=== PATIENT | male | born 1960 | race Caucasian/White ===

== ENCOUNTER 2020-04-23 18:45 | Inpatient (IN) | payer MEDICAID, SELFPAY ==
[~2020-04-23] VITALS: Ht 175.3 cm; Wt 83.5 kg
--- NOTE | 2020-04-23 18:48 | NUR ---
BIBA TAKEN TO BED 8
[2020-04-23 18:51] VITALS: BP 143/82
--- NOTE | 2020-04-23 19:10 | NUR ---
DR EVANS AT PT BEDSIDE FOR FURTHER EVALUATION
--- NOTE | 2020-04-23 19:18 | NUR ---
EMT AND LAB AT PT BEDSIDE
--- NOTE | 2020-04-23 19:19 | NUR ---
REPORT GIVEN TO FRACISCO DIAZ. TRANSFER OF CARE AT THIS TIME.
--- NOTE | 2020-04-23 19:19 | NUR ---
REPORT RECEIVED FROM DREW DIAZ FOR CONTINUITY OF CARE
[2020-04-23] MEDS ORDERED: VANCOMYCIN 1,000 MG in DEXTROSE 5% 250 ML IV ONE (19:20)
[2020-04-23] MEDS ORDERED: CEFEPIME 1,000 MG in DEXTROSE 5% 50 ML IV ONE (19:20)
--- NOTE | 2020-04-23 19:20 | NUR ---
ANNIE SWAB COLLECTED AND HANDED TO PERSONALIZED LIVING ASSISTANT
--- NOTE | 2020-04-23 19:20 | NUR ---
59 Y/O MALE C/O SOB. COVID+ 04/02/20; WAS AT HOME O2 FOR COVID. ON ROOM AIR 69%. PT ON NON REBREATHERR 10 L O2 SAT 95%. MEDHX: ESRD MWF, DM2, HTN NKA
--- NOTE | 2020-04-23 19:20 | NUR ---
R UPPER CHEST DIALYSIS CATHETER NOTED.
--- NOTE | 2020-04-23 19:26 | NUR ---
XRAY AT BEDSIDE
[2020-04-23] MEDS ORDERED: CEFEPIME 1,000 MG VIAL ONE (19:30)
[2020-04-23 19:38] LABS: BASOPHILS # (AUTO) 0.1 K/uL (0.00-0.22); BASOPHILS % (AUTO) 0.7 % (0.0-2.0); EOSINOPHILS # (AUTO) 0.3 K/uL (0-0.4); EOSINOPHILS % (AUTO) 3.1 % (0.0-4.0); HEMATOCRIT 24.3 % (36-52); LYMPHOCYTES # (AUTO) 0.9 K/uL (2.0-11.5); LYMPHOCYTES % (AUTO) 9.8 % (20.5-51.1); MEAN CORPUSCULAR HEMOGLOBIN 28 pg (27-31); MEAN CORPUSCULAR HGB CONC 33 g/dL (33-37); MEAN CORPUSCULAR VOLUME 85.2 fL (80-94); MONOCYTES # (AUTO) 0.7 K/uL (0.8-1.0); MONOCYTES % (AUTO) 8.2 % (1.7-9.3); NEUTROPHILS # (AUTO) 7.1 K/uL (1.8-7.7); NEUTROPHILS % (AUTO) 78.2 % (42.2-75.2); PLATELET COUNT (AUTO) 254 K/uL (140-450); RED BLOOD CELL COUNT(AUTO) 2.85 MIL/uL (4.20-6.10)
[2020-04-23 19:49] LABS: ALBUMIN 2.6 g/dL (3.4-5.0); ANION GAP 12.1 (8-16); CARBON DIOXIDE 27.9 mmol/L (21-32); TOTAL BILIRUBIN 0.5 mg/dL (0.0-1.0)
[2020-04-23 19:57] LABS: CREATININE 6.7 mg/dL (0.6-1.3)
[2020-04-23] MEDS ORDERED: VANCOMYCIN 1,000 MG VIAL ONE (20:22)
--- NOTE | 2020-04-23 20:40 | NUR ---
NOVEL SWAB COLLECTED AND SENT TO LAB
[2020-04-23] MEDS ORDERED: AMLO2.5T PO (20:50)
[2020-04-23] MEDS ORDERED: INSU100S22 SUBQ (20:50)
[2020-04-23] MEDS ORDERED: FURO-570 PO (20:50)
[2020-04-23] MEDS ORDERED: SEVE800T6 PO (20:50)
[2020-04-23] MEDS ORDERED: TAMS0.4C97 PO (20:50)
--- NOTE | 2020-04-23 21:30 | NUR ---
Patient will be admitted to care of DR ECHAVARRIA. Admited to TELEMETRY. Will go to room 119 B. Belongings list completed. Report to TAMEKA DIAZ.
[2020-04-23 21:40] VITALS: BP 158/77
--- NOTE | 2020-04-23 21:40 | NUR ---
RECEIVED PATIENT FROM BROACHING MACHINE SET UP OPERATOR. PT IS AAOX4 MALTESE SPEAKING ONLY. C/C HYPOXIA PT HX COVID + ON 04/02 PER PT C/O DE SAT AT HOME IN 60S DESPITE ON HOME O2. DX HYPOXIA COVID ANNIE NEGATIVE PCR PENDING. RESPIRATIONS ARE EQUAL AND UNLABORED ON 15L VIA NRB. LUNG SOUNDS ARE DIMINISHED. SKIN IS INTACT. PT WITH RIGHT 3,4,5 TOE AMPUTATION. PT STATES HAS NOT BEEN AMBULATING PAST DEW WEEKS D/T INCREASE SOB. PT LIVES AT HOME WITH DAUGHTER. ABD IS SOFT. BOWEL SOUNDS ARE ACTIVE X4, LBM TODAY. HX ESRD R UPPER CHEST TUNNEL CATH LAST HD TODAY UNKNOWN OUTPUT. HD ON MWF, IV ON FA 24G. MRSA SWAB OBTAINED. VSS. ORIENTED PT TO ROOM, STAFF AND CALL LIGHT. POC DISCUSSED WITH PT. PT VERBALIZED UNDERSTANDING. CALL LIGHT IS WITHIN REACH.
[2020-04-24] VITALS (20 sets, daily range): BP systolic 103–149; BP diastolic 43–85
[2020-04-24] MEDS ORDERED: ACETAMINOPHEN 325 MG TAB PO PRN ×2 (00:55→10:30)
--- NOTE | 2020-04-24 00:57 | NUR ---
VITAL SIGNS ARE STABLE. ADMINISTERED PRN TYLENOL FOR TEMP 100.4 COOLING MEASURES ARE IN PLACE. ALL NEEDS MET. CALL LIGHT IS WITHIN REACH.
--- NOTE | 2020-04-24 02:30 | NUR ---
ROUNDS MADE. PT IS SLEEPING COMFORTABLY IN BED VISIBLE CHEST RISE AND FALL. CALL LIGHT IS WITHIN REACH.
--- NOTE | 2020-04-24 04:00 | NUR ---
VITAL SIGNS ARE WITHIN NORMAL LIMITS. ALL NEEDS MET. CALL LIGHT IS WITHIN REACH. WILL CONTINUE TO MONITOR.
--- NOTE | 2020-04-24 07:30 | NUR ---
GAVE BEDSIDE REPORT TO DAY RN. PT ENDORSED IN STABLE CONDITION.
--- NOTE | 2020-04-24 07:31 | NUR ---
ENDORSEMENT RECEIVED FROM BLOW UP OPERATOR RN. PT IS STABLE, LAYING RIGHT LATERAL SIDE. SAFETY MEASURES IN PLACE. WILL CONTINUE WITH POC.
--- NOTE | 2020-04-24 09:09 | NUR ---
PATIENT HAS BEEN SCREENED AND CATEGORIZED MODERATE NUTRITION RISK. PATIENT WILL BE SEEN WITHIN 3-5 DAYS OF ADMISSION. 04/26/2020-04/28/[address]
--- NOTE | 2020-04-24 09:20 | NUR ---
SCHEDULED MEDICATION GIVEN PT RESISTANT TO SUBCUTANEOUS MEDICATION . REQUIRED SOME EDUCATION. PT LAYING ON RIGHT LATERAL SIDE, PT EASILY AGITATED STATING HE DOESN'T FEEL WELL. DENIES ANY PAIN AT THIS TIME. DENIES ANY SOB PT ON 10L SPO2 94% AT THIS TIME. PT COUGHING NON-PRODUCTIVE AT THIS TIME. LUNG SOUNDS DIMINISHED ASSESSMENT LIMITED DUE TO PTS AGITATION. "i JUST WANT TO REST" DENIED ISSUES WITH CONSTIPATION. CALL LIGHT WITHIN REACH. ENCOURAGED TO EAT BREAKFAST THAT IS AT BEDSIDE.
--- NOTE | 2020-04-24 10:18 | NUR ---
GEOCHEMICAL MANAGER REPORTED DECREASED IN HR, UPON ASSESSMENT PT NONRESPONSIVE. HR IN TH 40'S AND O2 30-40% MASK WAS OFF HIS FACE. PT WAS GIVEN OXYGEN., NO PULSE PALPATED AT THIS TIME. CODE BLUE WAS IMMEDIATELY INITIATED. CPR INITIATED.
--- NOTE | 2020-04-24 10:18 | NUR ---
JAZMÍN HELM CALLED DR. RITA VAZQUEZ AT BEDSIDE Vasyl WHYTE,ADMINISTRATIVE SERVICES ASSISTANT; Omari GONZALES,ADMINISTRATIVE SERVICES ASSISTANT; Herminia FERNANDO,ADMINISTRATIVE SERVICES ASSISTANT ATTENDING POST PATIENT EVALUATION COMPRESSIONS AND VBM INITIATED
--- NOTE | 2020-04-24 10:21 | NUR ---
BRITTANY VAZQUEZ VENTILATOR MODE AC RATE 20 VT 500ml PEEP 5cmH2O FIO2 100%; ABG [address] ON VENTILATOR; OBTAIN SPUTUM SAMPLE
--- NOTE | 2020-04-24 10:25 | NUR ---
PATIENT SUCCESSFULLY INTUBATED BY DR. RITA VAZQUEZ WITH AN ENDOTRACHEAL TUBE #7.5 SECURED AT 24cm TEETH/GUM LINE WITH ANCHOR FAST PLACEMENT CONFIRMED WITH CO2 DETECTOR COLOR CHANGE YELLOW, AUSCULTATION TO PULMONARY LUNG AMEZQUITA WITH GOOD AERATION AND CHEST RISE, AUSCULTATION TO ABDOMINAL CHEST XRAY TO FOLLOW
--- NOTE | 2020-04-24 10:25 | NUR ---
PT WAS INTUBATED AT THIS TIME AND SON BERNARDO NOTIFIED OF FATHERS CONDITION.
[2020-04-24] MEDS ORDERED: LORazepam 2 MG/ML VIAL IM/IVP PRN (10:30)
[2020-04-24] MEDS ORDERED: DOCUSATE SODIUM 100 MG GELCAP PO PRN (10:30)
[2020-04-24] MEDS ORDERED: MORPHINE SULFATE 2 MG/ML SYR IVP PRN (10:30)
[2020-04-24] MEDS ORDERED: HYDROcodone/APAP 5/325 MG 1 TAB TAB PO PRN (10:30)
[2020-04-24] MEDS ORDERED: NACL 0.9% 1,000 ML IV SCH (10:30)
[2020-04-24] MEDS ORDERED: ONDANSETRON 4 MG/2 ML VIAL IM/IVP PRN (10:30)
[2020-04-24] MEDS ORDERED: ALBUTEROL HFA MDI 90 MCG/ACTUATION 8 GM INH PRN (10:30)
[2020-04-24] MEDS ORDERED: MIDAZOLAM MDV 50 MG in NACL 0.9% 40 ML IV PRN (10:35)
--- NOTE | 2020-04-24 11:08 | NUR ---
PATIENT TRANSFERRED TO ICU-1 PLACED ON SUPPLEMENTAL OXYGEN VIA E-TANK (1900 PSI) TO ENDOTRACHEAL TUBE BMV COMPRESSION EVERY 6 SECONDS SATURATION 92% TOLERATED TRANSFER WELL WITHOUT INCIDENT
--- NOTE | 2020-04-24 11:10 | NUR ---
PT TRANSFERRED TO ICU AT THIS TIME. PT IS INTUBATED ON CARDIAC MONITORING. KAVITA CHANG NOTIFIED OF THE TRANSFER AND UPDATED ON CONDITION.
--- NOTE | 2020-04-24 11:15 | NUR ---
RECEIVED PT. FROM TELE ADM TO ICU 1 PT INTUBATED ETT TO VENT, SETTING AC 20 TV 500 [id number]% PEEP OF 5 O2 SAT 100% PT. HAS SCHUMACHER CATH AND OGT ON.IV FLUID ON RT WRIST .
--- NOTE | 2020-04-24 11:15 | NUR ---
PLACED ON A [employer]o-[employer]ovation[employer] R860 VENTILATOR PLUGGED INTO RED OUTLET WITH SETTINGS ORDERED TOLERATING WELL WITHOUT ADVERSE REACTIONS NOTED GOOD CHEST RISE SPUTUM SAMPLE OBTAINED ENDOTRACHEAL SUCTION FOR LARGE THIN YELLOW WITH BLOOD TINGE SECRETIONS AIRWAY PATENT
[2020-04-24 12:09] LABS: BASOPHILS # (AUTO) 0.1 K/uL (0.00-0.22); BASOPHILS % (AUTO) 0.5 % (0.0-2.0); EOSINOPHILS # (AUTO) 0.1 K/uL (0-0.4); EOSINOPHILS % (AUTO) 0.9 % (0.0-4.0); HEMOGLOBIN 7.8 g/dL (12.0-18.0); LYMPHOCYTES # (AUTO) 0.4 K/uL (2.0-11.5); LYMPHOCYTES % (AUTO) 3.4 % (20.5-51.1); MEAN CORPUSCULAR HEMOGLOBIN 28 pg (27-31); MEAN CORPUSCULAR HGB CONC 33 g/dL (33-37); MONOCYTES # (AUTO) 0.8 K/uL (0.8-1.0); MONOCYTES % (AUTO) 6.9 % (1.7-9.3); NEUTROPHILS # (AUTO) 10.6 K/uL (1.8-7.7); NEUTROPHILS % (AUTO) 88.3 % (42.2-75.2); PLATELET COUNT (AUTO) 223 K/uL (140-450); RED BLOOD CELL COUNT(AUTO) 2.79 MIL/uL (4.20-6.10); RED CELL DISTRIBUTION WIDTH 15.7 % (11.6-13.7)
--- NOTE | 2020-04-24 12:15 | NUR ---
STARTED ON FENTANYL AND VERSED AT MINIMUM DOSE PROTOCOL.
[2020-04-24 12:23] LABS: PROTHROMBIN TIME 10.3 secs (10.8-13.4)
[2020-04-24 12:28] LABS: ALBUMIN 2.2 g/dL (3.4-5.0); ANION GAP 14.3 (8-16); CARBON DIOXIDE 25.4 mmol/L (21-32); POTASSIUM 5.7 mmol/L (3.5-5.1); TOTAL BILIRUBIN 0.7 mg/dL (0.0-1.0)
[2020-04-24 12:29] LABS: CREATININE 7.6 mg/dL (0.6-1.3)
[2020-04-24] MEDS ORDERED: MAG SULF 2000 MG/WATER PREMIX 50 ML IV PRN (12:30)
[2020-04-24] MEDS ORDERED: POTASSIUM CHLORIDE 10 MEQ TABER PO PRN (12:30)
[2020-04-24] MEDS: fentaNYL citrate 1 MG in NACL 0.9% 80 ML IV PRN ×2 (12:35→16:32)
--- NOTE | 2020-04-24 12:43 | NUR ---
COURTESY PAGE TO DR. RITA VAZQUEZ [phone] TO REVIEW ABG SAMPLE RESULTS WITHOUT CRITICAL VALUES RETURN PHONE NUMBER [phone]
--- NOTE | 2020-04-24 12:51 | NUR ---
RETURN CALL FROM DR. RITA VAZQUEZ REVIEWED ABG SAMPLE REPORT; CHEST XRAY IMPRESSION: TUBE PLACEMENT 3.9cm ABOVE PETAR; ADMITTING DX: PNEUMONIA SPUTUM SAMPLE OBTAINED TORBO: HHN THERAPY DUONEB Q4; OXYGEN SATURATION GREATER THAN 94%; ABG AM
[2020-04-24] MEDS ORDERED: AZITHROMYCIN 250 MG in DEXTROSE 5% 250 ML IV SCH (13:00)
[2020-04-24 13:04] LABS: CHOL/HDL RATIO 3.3 (1-4.5); THYROID STIMULATING HORMONE 1.88 uIU/mL (0.34-3.74)
--- NOTE | 2020-04-24 15:30 | NUR ---
CALLED DR ECHAVARRIA IN REGARDS TO PATIENT INCREASED POTASSIUM, AWAITING CALL BACK WITH ORDERS.
[2020-04-24] MEDS: ALBUTEROL SULFATE/IPRATROPIU 3 ML SOL IH SCH ×2 (15:31→20:18)
[2020-04-24] MEDS: MIDAZOLAM MDV 100 MG in NACL 0.9% 80 ML IV SCH (16:53)
[2020-04-24] MEDS ORDERED: SODIUM ZIRCONIUM CYCLOSILICATE 10 GM POWD.PACK PO ONE (17:20)
[2020-04-24] MEDS ORDERED: SODIUM ZIRCONIUM CYCLOSILICATE 10 GM POWD.PACK ONE (18:48)
[2020-04-24] MEDS ORDERED: DOPPLER MC ONE (18:49)
--- NOTE | 2020-04-24 19:30 | NUR ---
ENDORSED TO REVENUE AUDIT CLERK NURSE FOR CONTINUITY OF CARE. PATIENT STABLE AT THIS TIME.
--- NOTE | 2020-04-24 20:00 | NUR ---
PT IS RESTING WELL NO UNDUESIGNS OF DISCOMFORT OBSERVED CARIAC MONITOR ATTACHED. PT IS ON THE VENTILATOR WITH RTT ATTACHED. NASO GASTIC TUBE IN PLACE. NO FEEDING ORDERED. SAME PATENT. SCHUMACHER CATH IS PATENT
--- NOTE | 2020-04-24 20:18 | NUR ---
RESTING WELL GOOD CHEST RISE ENDOTRAC HEAL SUCTION FOR LARGE THIN YELLOW WITH BLOOD TINGE SECRETIONS AIRWAY PATENT
[2020-04-24 23:03] LABS: ANION GAP 16.4 (8-16); CARBON DIOXIDE 24.6 mmol/L (21-32)
[2020-04-24 23:07] LABS: CREATININE 8.1 mg/dL (0.6-1.3)
[2020-04-25] VITALS (29 sets, daily range): BP systolic 94–142; BP diastolic 0–72
[2020-04-25] MEDS ORDERED: MIDAZOLAM MDV 50 MG/10 ML VIAL IV ONE (05:53)
[2020-04-25 06:39] LABS: BASOPHILS # (AUTO) 0.1 K/uL (0.00-0.22); BASOPHILS % (AUTO) 0.8 % (0.0-2.0); EOSINOPHILS # (AUTO) 0.1 K/uL (0-0.4); EOSINOPHILS % (AUTO) 1.9 % (0.0-4.0); HEMATOCRIT 20.8 % (36-52); LYMPHOCYTES # (AUTO) 1.2 K/uL (2.0-11.5); LYMPHOCYTES % (AUTO) 16.4 % (20.5-51.1); MEAN CORPUSCULAR HEMOGLOBIN 28 pg (27-31); MEAN CORPUSCULAR HGB CONC 32 g/dL (33-37); MEAN CORPUSCULAR VOLUME 86.7 fL (80-94); MONOCYTES # (AUTO) 0.7 K/uL (0.8-1.0); NEUTROPHILS # (AUTO) 5.2 K/uL (1.8-7.7); NEUTROPHILS % (AUTO) 71.9 % (42.2-75.2); PLATELET COUNT (AUTO) 202 K/uL (140-450); RED CELL DISTRIBUTION WIDTH 15.7 % (11.6-13.7); WHITE BLOOD COUNT (AUTO) 7.2 K/uL (4.8-10.8)
[2020-04-25 06:43] LABS: ALBUMIN 1.9 g/dL (3.4-5.0); ANION GAP 18.9 (8-16); CARBON DIOXIDE 23.8 mmol/L (21-32); HEMOGLOBIN 6.7 g/dL (12.0-18.0); MAGNESIUM 2.1 mg/dL (1.8-2.4); PHOSPHORUS 6.1 mg/dL (2.5-4.9); TOTAL BILIRUBIN 0.9 mg/dL (0.0-1.0)
[2020-04-25] MEDS: ALBUTEROL SULFATE/IPRATROPIU 3 ML SOL IH SCH ×4 (06:45→23:35)
[2020-04-25] MEDS ORDERED: SODIUM ZIRCONIUM CYCLOSILICATE 10 GM POWD.PACK PO ONE (06:50)
[2020-04-25] MEDS ORDERED: INSULIN REGULAR, HUMAN 100 UNIT/ML VIAL SUBQ ONE (06:50)
[2020-04-25 06:51] LABS: CREATININE 8.4 mg/dL (0.6-1.3); POTASSIUM 6.7 mmol/L (3.5-5.1)
--- NOTE | 2020-04-25 07:30 | NUR ---
RECEIVED REPORT FROM MARINE CHRONOMETER ASSEMBLER NURSE. RASS-3, FLACC 0. ETT TO VENT AC/VC FIO2 90% TV 500 R 20 PEEP 5. RESPIRATIONS ARE EVEN AND UNLABORED. WITH TALON PICC LINE RUNNING FENTANYL AT 1.5 MCG/KG/HR, VERSED 8MG/HR. WITH RIGHT SUBCLAVIAN DIALYSIS CATH INTACT. NGT TO RIGHT NARES INTACT. SCHUMACHER INTACT AND PATENT, DRAINING VIA GRAVITY. ISOLATION PRECAUTION OBSERVED. WILL CONTINUE TO MONITOR
[2020-04-25] MEDS: ZINC SULF 220 MG CAP PO SCH ×2 (09:00→20:53)
--- NOTE | 2020-04-25 09:00 | NUR ---
DUE MORNING MEDS GIVEN VIA GT, TOLERATED WELL. SCHUMACHER CARE, ORAL CARE DONE. REPOSITIONED PT
[2020-04-25] MEDS: VITAMIN D 400 IU TAB PO SCH (09:51)
[2020-04-25] MEDS: TAMSULOSIN 0.4 MG CAP PO SCH (09:52)
[2020-04-25] MEDS: FUROSEMIDE 40 MG TAB PO SCH (09:52)
[2020-04-25] MEDS: amLODIPine 5 MG TAB PO SCH (09:52)
[2020-04-25] MEDS: SEVELAMER CARBONATE 800 MG TAB PO SCH (09:52)
[2020-04-25] MEDS: ASCORBIC ACID 500 MG TAB PO SCH (09:52)
--- NOTE | 2020-04-25 10:30 | NUR ---
PRBC TRANSFUSION STARTED, VERIFIED BY 2 RN PRIOR
--- NOTE | 2020-04-25 11:13 | NUR ---
PT PEAK PRESSURE RISING. SWITCH MODE TO PRVC 20,500,+5,80%. PRESSURE REMAINS STABLE AT 29. SATURATIONS 96%. NO SIGNS OF RESPIRATORY DISTRESS. WILL CONTINUE TO MONITOR.
--- NOTE | 2020-04-25 12:10 | NUR ---
BLOOD TRANSFUSION DONE. NO ADVERSE REACTIONS NOTED. VSS
[2020-04-25] MEDS: fentaNYL citrate - 50mL vial 2.5 MG in NACL 0.9% 200 ML IV PRN (13:30)
--- NOTE | 2020-04-25 13:45 | NUR ---
HEMODIALYSIS DONE. 2L OUTPUT
[2020-04-25] MEDS: MIDAZOLAM MDV 100 MG in NACL 0.9% 80 ML IV SCH (14:00)
[2020-04-25 18:56] LABS: BASOPHILS % (AUTO) 0.1 % (0.0-2.0); EOSINOPHILS % (AUTO) 0.3 % (0.0-4.0); HEMOGLOBIN 8.1 g/dL (12.0-18.0); LYMPHOCYTES # (AUTO) 0.3 K/uL (2.0-11.5); LYMPHOCYTES % (AUTO) 4.7 % (20.5-51.1); MEAN CORPUSCULAR HEMOGLOBIN 28 pg (27-31); MEAN CORPUSCULAR HGB CONC 33 g/dL (33-37); MEAN CORPUSCULAR VOLUME 85.6 fL (80-94); MONOCYTES # (AUTO) 0.2 K/uL (0.8-1.0); MONOCYTES % (AUTO) 2.6 % (1.7-9.3); NEUTROPHILS # (AUTO) 6.3 K/uL (1.8-7.7); NEUTROPHILS % (AUTO) 92.3 % (42.2-75.2); PLATELET COUNT (AUTO) 230 K/uL (140-450); RED BLOOD CELL COUNT(AUTO) 2.92 MIL/uL (4.20-6.10); RED CELL DISTRIBUTION WIDTH 15.5 % (11.6-13.7); WHITE BLOOD COUNT (AUTO) 6.9 K/uL (4.8-10.8)
--- NOTE | 2020-04-25 20:00 | NUR ---
RECEIVED PATIENT IN SUPINE POSITION , ETT TO VENT WITH FIO2 75% RIGHT NG TUBE FEEDING WITH NEPRO AT 10 ML/HR, IV DRIP: FENTANYL1.5 MCG/KG/HR, VERSED 8 MG/HR INFUSING AT TALON MID LINE , SITE IS CLEAR, RIGHT SUBCLAVINE TUNNEL CATH IN PLACE ACCESS FOR HEMODIALYSIS , SCHUMACHER CATHETER IN PLACE AND DRAINING TO GRAVITY, SINUS RHYTHM ON THE MONITOR. WILL CONTINUE TO MONITOR.
[2020-04-25] MEDS: INSULIN LANTUS 100 UNITS/ML 10 ML VIAL SUBQ SCH (21:35)
[2020-04-26] VITALS (28 sets, daily range): BP systolic 141–171; BP diastolic 68–82
--- NOTE | 2020-04-26 | NUR ---
BS 151 LANTUS 10 UNITS SQ GIVEN ORDERED.
[2020-04-26] MEDS: ALBUTEROL SULFATE/IPRATROPIU 3 ML SOL IH SCH ×5 (03:50→23:00)
[2020-04-26] MEDS: MIDAZOLAM MDV 100 MG in NACL 0.9% 80 ML IV SCH (04:25)
--- NOTE | 2020-04-26 05:00 | NUR ---
SKIN CARE AND ORAL CARE GIVEN , TURN AND REPOSITION Q2H TO KEEP SKIN CLEAN AND DRY.
[2020-04-26 06:39] LABS: BASOPHILS % (AUTO) 0.1 % (0.0-2.0); HEMATOCRIT 25.3 % (36-52); HEMOGLOBIN 8.3 g/dL (12.0-18.0); LYMPHOCYTES # (AUTO) 0.5 K/uL (2.0-11.5); LYMPHOCYTES % (AUTO) 7.2 % (20.5-51.1); MEAN CORPUSCULAR HEMOGLOBIN 28 pg (27-31); MEAN CORPUSCULAR HGB CONC 33 g/dL (33-37); MEAN CORPUSCULAR VOLUME 85.2 fL (80-94); MONOCYTES # (AUTO) 0.4 K/uL (0.8-1.0); MONOCYTES % (AUTO) 5.4 % (1.7-9.3); NEUTROPHILS # (AUTO) 6.2 K/uL (1.8-7.7); NEUTROPHILS % (AUTO) 87.3 % (42.2-75.2); PLATELET COUNT (AUTO) 264 K/uL (140-450); RED BLOOD CELL COUNT(AUTO) 2.98 MIL/uL (4.20-6.10); RED CELL DISTRIBUTION WIDTH 15.5 % (11.6-13.7); WHITE BLOOD COUNT (AUTO) 7.1 K/uL (4.8-10.8)
[2020-04-26 07:01] LABS: ALBUMIN 2.1 g/dL (3.4-5.0); CARBON DIOXIDE 26.3 mmol/L (21-32); MAGNESIUM 2.4 mg/dL (1.8-2.4); PHOSPHORUS 8.7 mg/dL (2.5-4.9); POTASSIUM 5.3 mmol/L (3.5-5.1); TOTAL BILIRUBIN 0.7 mg/dL (0.0-1.0)
[2020-04-26 07:06] LABS: CREATININE 6.7 mg/dL (0.6-1.3)
--- NOTE | 2020-04-26 07:20 | NUR ---
RECEIVED BEDSIDE REPORT FROM EXECUTIVE CHEF ASSISTANT NURSE. PATIENT IN BED, SUPINE, SEDATED TO RASS -3, RESPONSIVE TO LIGHT PAIN. ETT TO VENT: AC PRVC FIO2 70%, RR 20, PEEP 5, SPO2 98%. BREATHING EVEN AND UNLABORED, NO SIGNS OF ACUTE DISTRESS NOTED. NG TUBE TO R NARE, RUNNING NEPRO @ 10CC/HR. TALON MIDLINE, R SUBCLAVIAN TUNNEL CATHETER. INFUSING: FENTANYL @ 1.5 MG/KG/HR, VERSED @ 8 MG/HR, NS @ 5 ML/HR. DELINQUENT TAX COLLECTOR IN PLACE. SAFETY MEASURES IN PLACE.
[2020-04-26] MEDS: VITAMIN D 400 IU TAB PO SCH (08:47)
[2020-04-26] MEDS: FUROSEMIDE 40 MG TAB PO SCH (08:48)
[2020-04-26] MEDS: TAMSULOSIN 0.4 MG CAP PO SCH (08:48)
[2020-04-26] MEDS: SEVELAMER CARBONATE 800 MG TAB PO SCH ×2 (08:49→17:50)
[2020-04-26] MEDS: amLODIPine 5 MG TAB PO SCH (08:49)
[2020-04-26] MEDS: ZINC SULF 220 MG CAP PO SCH ×2 (08:50→21:36)
[2020-04-26] MEDS: ASCORBIC ACID 500 MG TAB PO SCH (08:50)
[2020-04-26] MEDS: fentaNYL citrate - 50mL vial 2.5 MG in NACL 0.9% 200 ML IV PRN (08:57)
--- NOTE | 2020-04-26 09:25 | NUR ---
ADMINISTERED SCHEDULED MEDS PER MD ORDER. MED EDUCATION PROVIDED REINFORCEMENT NEEDED. G TUBE RESIDUAL 5ML, FLUSHED BEFORE AND AFTER MEDS. HEPARIN ADMINISTERED IV ROUTE. MORNING HYGIENE PROVIDED: VAP ORAL CARE, CATHETER CARE, HCG BATH, CHANGED ALL DIRTY LINEN. PATIENT REPOSITIONED AND OFFLOADED PRESSURE WITH PILLOWS. ACTIVITY TOLERATED WELL, NO SIGNS OF ACUTE DISTRESS NOTED. SCHEDULING CLERK IN PLACE, BED IN LOW POSITION, SAFETY MEASURES IN PLACE.
[2020-04-26] MEDS ORDERED: SODIUM ZIRCONIUM CYCLOSILICATE 10 GM POWD.PACK PO ONE (11:55)
--- NOTE | 2020-04-26 13:38 | NUR ---
DISCHARGE PLANNING: THIS IS A 59 Y/O MALE PATIENT, BIBA FROM HOME DUE TO SOB. PAST MEDICAL HISTORY INCLUDE HTN, BPH, DIABETES, ANEMIA OF CHRONIC DISEASE, ESRD. INITIAL DIAGNOSIS OF HYPOXIA. CURRENT LABS INCLUDE WBC 7.1, H/H 8.3/25.3, NA/K 138/5.3, BUN/CREA 56/6.7, D DIMER >5000. JAZMÍN HELM CALLED ON 04/24/2020, INTUBATED AND TRANSFERRED TO ICU. REMAINS ON ETT TO VENT, FIO2 70%, PEEP 5, O2 SAT 98%. SEDATED WITH FENTANYL AND VERSED. HAD HD YESTERDAY. ON HEPARIN SC. NEPHRO, ID AND PULMO CONSULTS IN PLACE. DC PLAN PENDING ON PATIENT'S RESPONSE TO TREATMENT. Addendum: 05/03/20 at 1618 by Cydney Hernandez CM DC DRAFTING LAYOUT MAN: FAXED HOME O2 ORDER TO [facility]. RECEIVED A CALL BACK FROM [facility], THEY ARE NOT ABLE TO PROVIDE HOME O2. Addendum: 05/04/20 at 1138 by Eve Reyes RN DC PLANNING: PER PT AND FAMILY REQUEST PT WILL MOVE TO [place] WITH THE SON, AND REQUESTED THE DIALYSIS CENTER TO BE CHANGED TO [place]. DISCUSSED WITH DR OLVIN PETERS AND PER PT CAN GO TO [facility]. CALLED [facility] [phone] SPOKE WITH CYNTHIA STOCK CRANE OPERATOR ,SHE REQUESTED THE CLINICALS TO BE FAXED TO [phone]. DC DRAFTING LAYOUT MAN WILL FOLLOW UP. CM TO FOLLOW . Addendum: 05/04/20 at 1147 by Cydney Hernandez CM DC DRAFTING LAYOUT MAN: FAXED CLINICALS TO [facility]. WILL FOLLOW UP Addendum: 05/10/20 at 1342 by Celsa Anderson CM PER PATIENT'S SON BERNARDO, HE IS STILL WAITING FOR THE COMPANY TO RELEASE THE O2. HE STATED HE WILL BE HERE AROUND [phone] TO LEATHER SOFTENER THE PATIENT IF PATIENT IS READY TO BE DISCHARGE. Addendum: 05/10/20 at 1611 by Celsa Anderson CM PER PATIENT'S SON BERNARDO, THEY HAVE THE O2. DR. STAPLETON MADE AWARE. PER DR. STAPLETON, WILL DC PATIENT. CHARGE NURSE MADE AWARE.
--- NOTE | 2020-04-26 14:42 | NUR ---
RD RECOMMENDATIONS TO INCREASE GOAL RATE OF NEPRO 1.8 TO 50 ML/HR WAS APPROVED THROUGH TELEPHONE ORDER BY DR. ECHAVARRIA.
--- NOTE | 2020-04-26 14:58 | NUR ---
DC PLANNIN YRS OLD MALE PATIENT WAS ADMITTED FROM HOME WITH A DX OF HYPOXIA . ON 4L/NC SATING 95% COVID TEST RAPID AND PCR NEGATIVE. ADMINISTERED IVF AND HOME MEDS. CONSULTED WITH SALESPERSON SURGICAL APPLIANCES TREVA ID. DC PLAN TO GO HOME WHEN STABLE. CM TO FOLLOW Addendum: 05/03/20 at 1112 by Eve Reyes RN DC PLANNING: PT IS ON 3L/NC SATING 98%. TREVA GRIFFITH AND NEPHRO FOLLOWING HEMODIALYSIS SCHEDULED , CONTINUE IV ABX ZOSYN AND TAZOBACTAM, DC PLAN TO GO HOME WHEN STABLE. Addendum: 05/03/20 at 1149 by Cydney Hernandez CM DC DIRECTOR DIGITAL COMMUNICATIONS: SPOKE TO PATIENTS KAVITA CAGEMATT [phone] PATIENT RECEIVES DIALYSIS AT [facility] IN 1:45 PM. HE STATED THAT PATIENT NOW LIVES WITH HIM [place] AND REQUESTING IF WE COULD FIND A CLOSER LOCATION. Addendum: 05/04/20 at 0918 by Cydney Hernandez CM ADRYAN BRICENO: FAXED PATIENTS PACKET TO MICAH IN [facility] ADMISSIONS. WILL FOLLOW UP Addendum: 05/04/20 at 1109 by Cydney Hernandez CM ADRYAN BRICENO: SPOKE TO MICAH AT [facility] ADMISSIONS SHE STATED THAT THIS PATIENT IS UNDER A DIFFERENT DOCTORS GROUP SO WE WOULD HAVE TO REACH OUT TO THE FOLLOWING NEPHRO FIRST TO SEE IF HE IS OKAY WITH PATIENT GOING TO [facility] Addendum: 05/04/20 at 1341 by Cydney Hernandez CM ADRYAN MUÑOZNER: SPOKE TO LINSEY AT [facility] [phone] PATIENT IS UNDER REVIEW. Addendum: 05/04/20 at 1452 by Cydney Hernandez CM ADRYAN MUÑOZNER: PATIENT HAS BEEN ACCEPTED AT [facility] [phone] CHAIR TIME T, TH,SAT @ 1:30 PM. NOTIFIED PATIENTS KAVITA CHANG [phone]. WHEN SPEAKING TO PATIENTS SON HE BROUGHT TO MY ATTENTION THAT PATIENT HAS HOME O2 AT HOME. Addendum: 05/05/20 at 1520 by Cydney Hernandez CM ADRYAN DIRECTOR DIGITAL COMMUNICATIONS: FOLLOWED UP WITH PATIENTS SON HE SPOKE TO [employer] THE PROVIDER FOR PATIENTS HOME O2 THAT WAS SET UP BY [facility] UNFORTUNATELY THEY ARE ASKING HIM TO RETURN THE HOME O2 BECAUSE IT HAS BEEN OVER A MONTH. SPOKE TO PRUDENCE AT [employer] [phone] SHE EXPLAINED TO ME THE SAME THAT THE PATIENT WILL HAVE TO RETURN HOME O2 AND THAT IT WOULD NOT BE ENOUGH TO GET PATIENT HOME SAFELY. SHE ADVISED THAT PATIENT MAY BE ABLE TO SCHEDULE AN APPOINTMENT WITH PCP TO GET MORE OXYGEN. PATIENT DID HAVE A FOLLOW UP APPT TODAY BUT HE WAS NOT ABLE TO MAKE IT BECAUSE HE IS HERE AT THE HOSPITAL. CM SPOKE TO PATIENTS SON BERNARDO REGARDING HOME O2 EXPLAINED TO HIM THAT HE WILL NEED OXYGEN TO GET HOME SAFELY. IT WAS DISCUSSED WITH HIM THAT THE [employer] IS ABLE TO PROVIDE PORTABLE CONCENTRATORS FOR 2,225 WITH MONTHLY PAYMENTS. THE SON STATED THAT IF HE HAS NO OTHER OPTIONS THAT HE WILL FIND OUT A WAY TO PAY FOR IT. FAXED HOME O2 TO [facility] TO SEE IF THEY ARE ABLE TO PROVIDE HOME O2. WILL FOLLOW UP Addendum: 05/05/20 at 1615 by Cydney Hernandez CM ADRYAN DIRECTOR DIGITAL COMMUNICATIONS: RECEIVED A PHONE CALL FROM EFRAIN AT [facility] PATIENT HAS RESTRICTED [facility] IT DOES NOT COVER HOME O2 Addendum: 05/07/20 at 1154 by Cydney Hernandez CM ADRYAN DIRECTOR DIGITAL COMMUNICATIONS: SPOKE TO PATIENTS SON REGARDING HOME O2. HE WAS ABLE TO CONTACT [facility] AND THEY WERE ABLE TO SEND A NEW ORDER FOR HOME O2 TO [employer]. HE STATED THAT [employer] IS VERY BUSY AT THIS TIME AND MAY NOT HAVE IT AVAILABLE UNTIL SUNDAY. HE WILL CALL THEM TODAY TO FOLLOW UP. Addendum: 05/10/20 at 1055 by Celsa Anderson CM CONTACTED PATIENT'S SON BERNARDO AT [phone] TO FOLLOW UP ON THE HOME O2. PER BERNARDO HE WILL BE PICKING IT UP BETWEEN [phone] TODAY AND WILL GIVE ME A CALL ONCE HE IS ABLE TO SENIOR PARTNER. WILL FOLLOW UP. Addendum: 05/10/20 at 1124 by Celsa Anderson CM DR. STAPLETON AND CHARGE NURSE PATE MADE AWARE.
[2020-04-26] MEDS ORDERED: SODIUM ZIRCONIUM CYCLOSILICATE 10 GM POWD.PACK ONE (15:14)
[2020-04-26] MEDS: SODIUM ZIRCONIUM CYCLOSILICATE 10 GM POWD.PACK ONE ×2 (15:16→15:22)
--- NOTE | 2020-04-26 15:20 | NUR ---
04/26/20 RD INITIAL ASSESSMENT COMPLETED PLEASE REFER TO NUTRITION ASSESSMENT UNDER CARE ACTIVITY FOR ESTIMATED NUTRITIONAL NEEDS. 1. RECOMMEND NEPRO @ 50 ML/HR; FREE WATER FLUSH OF 100 ML Q4H -THIS WILL PROVIDE 1200 ML OF VOLUME, 2160 KCAL, 97 GM OF PROTEIN 2. CONTINUE VITAMIN C AND VITAMIN D SUPPLEMENTATIONS 3. RD TO FOLLOW-UP 2-3 DAYS, HIGH RISK RADHA HAMILTON, RD
--- NOTE | 2020-04-26 17:05 | NUR ---
PATIENT REPOSITIONED AND OFFLOADED PRESSURE WITH PILLOWS. VAP ORAL CARE PERFORMED. ACTIVITY TOLERATED WELL, NO SIGNS OF ACUTE DISTRESS NOTED.
--- NOTE | 2020-04-26 19:17 | NUR ---
ENDORSED PATIENT TO MANAGER CORPORATE COMMUNICATIONS NURSE FOR CONTINUITY OF CARE. PATIENT STABLE AT THIS TIME. ENDORSED OCCULT BLOOD SPECIMEN ONCE PATIENT HAS A BM. ENDORSED CT SCAN OF HEAD IF PATIENT DOES NOT BEGIN TO BECOME MORE AWARE SEDATION IS WEANED.
--- NOTE | 2020-04-26 19:58 | NUR ---
RECEIVED PATIENT IN SUPINE POSITION, INTUBATED AND SEDATED, ETT TO VENT WITH FIO2 50%, IV DRIP: FENTANYL 1 MCG/KG/HR, VERSED 5 MG/HR , ALL IV MEDS INFUSING AT TALON MID-LINE. NG TUBE FEEDING WITN NEPRO 50 CC/HR , SCHUMACHER CATHETER IN PLACE AND DRAINING TO GRAVITY , RIGHT SUBCLAV TUNNEL CATHETER INTACT ACCESS TO HD. WILL CONTINUE TO MONITOR.
[2020-04-26] MEDS: INSULIN LANTUS 100 UNITS/ML 10 ML VIAL SUBQ SCH (21:20)
--- NOTE | 2020-04-26 22:40 | NUR ---
BEEN AND BACK FROM CT SCAN WITHOUT CONTRAST, TOLERATED PROCEDURE, PUT BACK THE MONITOR.
[2020-04-27] VITALS (30 sets, daily range): BP systolic 133–200; BP diastolic 53–93
[2020-04-27] MEDS: MIDAZOLAM MDV 100 MG in NACL 0.9% 80 ML IV SCH (00:34)
[2020-04-27] MEDS: ALBUTEROL SULFATE/IPRATROPIU 3 ML SOL IH SCH ×6 (02:48→23:00)
--- NOTE | 2020-04-27 04:07 | NUR ---
DECREASED FIO2 TO 30% SATS 96%
[2020-04-27] MEDS: fentaNYL citrate - 50mL vial 2.5 MG in NACL 0.9% 200 ML IV PRN ×2 (04:38→11:03)
--- NOTE | 2020-04-27 05:00 | NUR ---
SKIN CARE AND ORAL CARE GIVEN, PATIENT TOLERATED THE VENT SETTING - FIO2 30%.
[2020-04-27 06:11] LABS: ALBUMIN 2.1 g/dL (3.4-5.0); ANION GAP 18.9 (8-16); CARBON DIOXIDE 25.7 mmol/L (21-32); MAGNESIUM 2.8 mg/dL (1.8-2.4); POTASSIUM 5.6 mmol/L (3.5-5.1); TOTAL BILIRUBIN 0.4 mg/dL (0.0-1.0)
[2020-04-27 06:30] LABS: BASOPHILS % (AUTO) 0.1 % (0.0-2.0); HEMOGLOBIN 8.5 g/dL (12.0-18.0); LYMPHOCYTES # (AUTO) 0.5 K/uL (2.0-11.5); MEAN CORPUSCULAR HEMOGLOBIN 28 pg (27-31); MEAN CORPUSCULAR HGB CONC 33 g/dL (33-37); MONOCYTES # (AUTO) 0.4 K/uL (0.8-1.0); NEUTROPHILS # (AUTO) 6.7 K/uL (1.8-7.7); NEUTROPHILS % (AUTO) 88.9 % (42.2-75.2); PLATELET COUNT (AUTO) 309 K/uL (140-450); RED BLOOD CELL COUNT(AUTO) 3.03 MIL/uL (4.20-6.10); RED CELL DISTRIBUTION WIDTH 15.3 % (11.6-13.7); WHITE BLOOD COUNT (AUTO) 7.6 K/uL (4.8-10.8)
[2020-04-27 07:01] LABS: CREATININE 8.2 mg/dL (0.6-1.3); PHOSPHORUS 9.6 mg/dL (2.5-4.9)
--- NOTE | 2020-04-27 07:03 | NUR ---
RECEIVED A CALL FROM LAB FOR BUN 91 CREA 8.2 PHOS 9.6 PATIENT IS GOING TO HAVE HD TODAY , ENDORSED TO STEPHANIE.
--- NOTE | 2020-04-27 07:23 | NUR ---
RECEIVED BEDSIDE REPORT FROM TECHNICAL MARKETING CONSULTANT NURSE TAM FOR CONTINUITY OF CARE. PATIENT LYING ON BED COMFORTABLY AT THIS TIME, FLACC 0, RASS -3, DRY WEIGHT 83 KG. RESPIRATION EVEN AND UNLABORED ON ETT TO VENT, AC/PRVC FIO2 30%, RATE 16, PEEP 5, TIDAL VOLUME 450, SPO2 AT 96% AT THIS TIME. LUNGS SOUND DIMINISHED ON AUSCULTATION. NO SIGNS OF ACUTE DISTRESS NOTED. NG TUBE TO R NARE, RUNNING NEPRO 50 ML/HR, WATER FLUSH 100 ML/Q4H. TALON MIDLINE, CLEAN AND INTACT, RUNNING FENTANYL 1 MCG/KG/HR, VERSED 5 MG/HR, NS TKO 5 ML/HR. R SUBCLAVIAN TUNNEL CATHETER FOR HD. SCHUMACHER IN PLACE, DRAINING WITH GRAVITY, MINIMAL URINE NOTED. R FOOT TOE AMPUTATION NOTED, OTHERWISE, SKIN CLEAN, WARM TO TOUCH. ABDOMEN SOFT, NON-TENDER. PRESCHOOL DISABILITY TEACHER IN PLACE. SAFETY MEASURES IN PLACE. HOB ELEVATED 35 DEGREE, BED IN LOW POSITION, AND BED LOCKED.
--- NOTE | 2020-04-27 07:29 | NUR ---
FRANCISCO J FLOAT OPERATOR MADE AWARE THAT PATIENT HAS ORDER FOR HD TODAY.
[2020-04-27] MEDS: SEVELAMER CARBONATE 800 MG TAB PO SCH ×3 (08:18→17:00)
[2020-04-27] MEDS: ZINC SULF 220 MG CAP PO SCH ×2 (08:19→20:46)
[2020-04-27] MEDS: TAMSULOSIN 0.4 MG CAP PO SCH (08:19)
[2020-04-27] MEDS: FUROSEMIDE 40 MG TAB PO SCH (08:19)
[2020-04-27] MEDS: amLODIPine 5 MG TAB PO SCH (08:19)
[2020-04-27] MEDS: VITAMIN D 400 IU TAB PO SCH (08:19)
[2020-04-27] MEDS: ASCORBIC ACID 500 MG TAB PO SCH (08:19)
--- NOTE | 2020-04-27 08:44 | NUR ---
CHECKED NGT RESIDUAL RECEIVED < 10 ML WHITE RESIDUAL, FLUSHED. ADMINISTERED SCHEDULED AM MEDS, HELD BP MED DUE TO PATIENT IS SCHEDULED HD TODAY, FLUSHED BEFORE AND AFTER MEDS. PROVIDED HYGIENE CARE, ORAL CARE, CHG BATH, SCHUMACHER CARE. WITH ASSIST, REPOSITIONED PATIENT, OFFLOADED PRESSURE WITH PILLOWS, PATIENT TOLERATED FAIR, FLACC 0. RESPIRATION EVEN AND UNLABORED ON ETT TO VENT AC/PRVC FIO2 70%, SPO2 93%. NO SIGNS OF ACUTE DISTRESS NOTED. SAFETY MEASURES IN PLACE. HOB ELEVATED 35 DEGREE, BED IN LOW POSITION, AND BED LOCKED.
--- NOTE | 2020-04-27 10:03 | NUR ---
FRANCISCO J AXLE POLISHER IS AT BEDSIDE DOING DIALYSIS. 10,000 UNIT HEPARIN PROVIDED TO MARX RN TO FLUSH PORTS.
--- NOTE | 2020-04-27 11:35 | NUR ---
DR ECHAVARRIA IS ROUNDING ON PATIENT.
--- NOTE | 2020-04-27 13:36 | NUR ---
ADMINISTERED SCHEDULED MED PER MD ORDER VIA NGT, FLUSHED BEFORE AND AFTER MED. WITH ASSIST, REPOSITIONED PATIENT, PILLOWS USED TO OFFLOADED PRESSURE, PATIENT TOLERATED FAIR. ORAL CARE PROVIDED. SAFETY MEASURES IN PLACE. HOB ELEVATED 35 DEGREE, BED IN LOW POSITION, AND CALL LIGHT WITHIN REACH.
--- NOTE | 2020-04-27 14:35 | NUR ---
DR HENRY IS ROUNDING ON PATIENT, ORDERED TO HELD ALL SEDATION TO SEE IF PATIENT IS WAKING UP. VERSED AND FENTANYL HELD NOW.
--- NOTE | 2020-04-27 17:50 | NUR ---
SCHEDULED MEDS GIVEN VIA OGT, FLUSHED BEFORE AND AFTER MEDS. PATIENT OPENS HIS EYES FOR 30 SECONDS, NODDED WHEN BEING ASK IF HE IS DOING OK, AND ABLE TO MOVE HIS FINGERS, WEAKNESS ON ARMS NOTED. PROVIDED HYGIENE CARE, ORAL CARE, WITH ASSIST, REPOSITIONED PATIENT,PILLOWS USED TO OFFLOAD PRESSURE FROM BONY AREA AND EXTREMITIES, PATIENT TOLERATED FAIR. OGT FEEDING CONTINUE. SAFETY MEASURES IN PLACE. HOB ELEVATED 35 DEGREE, BED IN LOW POSITION AND BED LOCKED.
--- NOTE | 2020-04-27 17:53 | NUR ---
DR HENRY MADE AWARE OF PATIENT'S CONDITION AND CAME TO ASSESS PATIENT BY BEDSIDE. RECEIVED VERBAL ORDER FOR PRECEDEX RASS 0 TO PROVIDE COMFORT, REPEATED AND CONFIRMED ORDER WITH MD, WILL INPUT ACCORDINGLY.
[2020-04-27] MEDS: ALUMINUM HYDROXIDE 64 MG/ML BOTTLE GT SCH (18:12)
--- NOTE | 2020-04-27 18:33 | NUR ---
PATIENT FOUND SELF-EXTUBATED, ATTENDED TO PATIENT, RT NOTIFIED AND PRESENT BY BEDSIDE. 15 LPM NON-REBREATHER APPLIED, PATIENT IS SETTING AT 100% AT THIS TIME. DR CARL ASHLEY.
--- NOTE | 2020-04-27 18:40 | NUR ---
CAME TO BESIDE TO ASSESS SELF EXTUBATED PT. PT IS AWAKE ALERT AND RESPONSIVE. PT SPO2 OF ROOM AIR IS 86%. PLACED PT ON NON REBREATHER AT BEDSIDE. DR. HENRY CALLED BACKED. INFORMED DR. HENRY THAT PT HAS BEEN PLACED ON COOL AEROSOL 10L @ 40% AND SPO2 IS 98% AND RACEMIC EPINEPHRINE WILL BE ORDERED PRN FOR STRIDOR. DOCTOR AGREED. DR. HENRY WANT REINTUBATION IF PT DETERIORATE. NO BiPAP.RN NOTIFIED. WILL CONTINUE TO MONITOR PT.
[2020-04-27] MEDS ORDERED: RACEPINEPHRINE 2.25% 13.5 MG/0.5 ML NEBU INH PRN (19:10)
[2020-04-27] MEDS: DEXMEDETOMIDINE HCL 400 MCG in NACL 0.9% 96 ML IV PRN (19:17)
--- NOTE | 2020-04-27 19:46 | NUR ---
RECEIVED PATIENT IN SUPINE ON 15 LPM NON REBREATHER WITH O2 SAT 99% HR 113 RR 29 BP 178/74 , PATIENT IS AWAKE ALERT AND RESPONSIVE, STILL ON NG TUBE FEEDING WITH NEPRO AT 50 ML/HR, IV DRIP : PRECEDEX 0.2MCG/KG/HR INFUSING AT [place] MID-LINE , SITE INTACT, RIGHT SUBCLAVIAN TUNNEL CATH INTACT AND ACCESS TO HEMODIALYSIS. SCHUMACHER CATH IN PLACE AND DRAINING TO GRAVITY. WILL CONTINUE TO MONITOR.
[2020-04-27] MEDS ORDERED: RACEPINEPHRINE 2.25% 13.5 MG/0.5 ML NEBU INH ONE (20:19)
[2020-04-27] MEDS: INSULIN LANTUS 100 UNITS/ML 10 ML VIAL SUBQ SCH (21:08)
--- NOTE | 2020-04-27 21:23 | NUR ---
AUSCULTATION REVEALS STRIDOR. PRN RACEMIC EPINEPHRINE INDICATED. MEDS WAS OVERRIDE AND GIVEN AT THIS TIME. NO STRIDOR ON POST TX. WILL CONTINUE TO MONITOR PT.
[2020-04-27] MEDS: LABETALOL 100 MG/20 ML VIAL IV PRN (21:32)
--- NOTE | 2020-04-27 22:08 | NUR ---
PUT NG TUBE FEEDING ON HOLD FOR ASPIRATION PRECAUSION AFTER EXTUBATION AT 1999 , BP 215/70 LABETALOL 20 MG IVP GIVEN PER PRN ORDER, WILL CONTINUE TO MONITOR.
--- NOTE | 2020-04-27 23:38 | NUR ---
RECHECKED BP 189/92 , PAGED DR CAREY REGULATORY INTERN , LEFT MESSAGE TO EXCHANGE.
[2020-04-28] VITALS (24 sets, daily range): BP systolic 129–199; BP diastolic 74–98
[2020-04-28] MEDS: ALUMINUM HYDROXIDE 64 MG/ML BOTTLE GT SCH ×5 (00:17→23:27)
[2020-04-28] MEDS: LABETALOL 100 MG/20 ML VIAL IV PRN ×5 (00:57→23:00)
[2020-04-28] MEDS: ALBUTEROL SULFATE/IPRATROPIU 3 ML SOL IH SCH ×5 (03:48→23:41)
--- NOTE | 2020-04-28 05:00 | NUR ---
SKIN CARE AND ORAL CARE GIVEN, PATIENT IS DROWSY BUT AROUSABLE MOST OF TIME, TOLERATED OXYGEN 15 LPM, WILL CONTINUE TO MONITOR.
[2020-04-28 05:25] LABS: APPEARANCE,URINE CLEAR (CLEAR); BILIRUBIN,URINE NEGATIVE (NEGATIVE); BLOOD, URINE 1+ (NEGATIVE); COLOR,URINE YELLOW (YELLOW); LEUKOCYTE ESTERASE ,URINE NEGATIVE (NEGATIVE); NITRITE, URINE NEGATIVE (NEGATIVE); PH,URINE 7.5 (5.0-9.0); UGLUCOSE 2+ (NEGATIVE)
--- NOTE | 2020-04-28 06:00 | NUR ---
PT DOING GOOD AFTER SELF EXTUBATION. PT STILL ON COOL AEROSOL 40% @ 10L WITH SPO2 OF 96%. ADEQUATE CHEST RISE AND FALL. NO STRIDOR. PT AWAKE, ALERT, AND COMMUNICATIVE. WILL CONTINUE TO MONITOR PT.
[2020-04-28 06:18] LABS: BASOPHILS % (AUTO) 0.1 % (0.0-2.0); EOSINOPHILS % (AUTO) 0.1 % (0.0-4.0); HEMATOCRIT 30.9 % (36-52); HEMOGLOBIN 10.2 g/dL (12.0-18.0); LYMPHOCYTES # (AUTO) 0.8 K/uL (2.0-11.5); LYMPHOCYTES % (AUTO) 8.4 % (20.5-51.1); MEAN CORPUSCULAR HEMOGLOBIN 28 pg (27-31); MEAN CORPUSCULAR HGB CONC 33 g/dL (33-37); MONOCYTES # (AUTO) 0.6 K/uL (0.8-1.0); MONOCYTES % (AUTO) 6.2 % (1.7-9.3); NEUTROPHILS % (AUTO) 85.2 % (42.2-75.2); PLATELET COUNT (AUTO) 361 K/uL (140-450); RED BLOOD CELL COUNT(AUTO) 3.63 MIL/uL (4.20-6.10); WHITE BLOOD COUNT (AUTO) 9.4 K/uL (4.8-10.8)
--- NOTE | 2020-04-28 06:39 | NUR ---
LABETALOL 10 MG IVP GIVEN ORDERED FOR SBP 165. WILL CONTINUE TO MONITOR.
[2020-04-28 06:41] LABS: ALBUMIN 2.4 g/dL (3.4-5.0); ANION GAP 18.4 (8-16); CARBON DIOXIDE 25.9 mmol/L (21-32); MAGNESIUM 2.7 mg/dL (1.8-2.4); PHOSPHORUS 6.7 mg/dL (2.5-4.9); POTASSIUM 4.3 mmol/L (3.5-5.1); TOTAL BILIRUBIN 0.4 mg/dL (0.0-1.0)
[2020-04-28 07:10] LABS: CREATININE 6.7 mg/dL (0.6-1.3)
--- NOTE | 2020-04-28 07:15 | NUR ---
RECEIVED BEDSIDE REPORT FROM SUPERVISOR [employer] NURSE TAM FOR CONTINUITY OF CARE. PATIENT LYING ON BED COMFORTABLY AT THIS TIME, FLACC 0, RASS 0, DRY WEIGHT 83 KG. PATIENT IS UNABLE TO STATE NAME, PLACE, DATE OF , SPEAKS [place], AND UNDERSTAND SOME [place]. BEHAVIOR CALM, INSTRUCTED PATIENT TO KEEP O2 MASK ON AT ALL TIME. RESPIRATION EVEN AND UNLABORED ON AEROSOL 40% AT 8 LPM, SPO2 AT 98% AT THIS TIME. BLOOD PRESSURE ON HIGH SIDE 165/83 PULSE 85, PREVIOUS RN GIVEN PRN LABETALOL. LUNGS SOUND DIMINISHED ON AUSCULTATION. NO SIGNS OF ACUTE DISTRESS NOTED. NG TUBE TO R NARE, FEEDING NOT RUNNING AT THIS TIME. T[place] MIDLINE, CLEAN AND INTACT, RUNNING PRECEDEX 0.2 MCG/KG/HR. R SUBCLAVIAN TUNNEL CATHETER FOR HD. SCHUMACHER IN PLACE, DRAINING WITH GRAVITY, MINIMAL YELLOW URINE NOTED. R FOOT TOE AMPUTATION NOTED, OTHERWISE, SKIN CLEAN, WARM TO TOUCH. ABDOMEN SOFT, NON-TENDER. [employer]IATION SAFETY OFFICER IN PLACE. SAFETY MEASURES IN PLACE. HOB ELEVATED 35 DEGREE, BED IN LOW POSITION, AND BED LOCKED.
--- NOTE | 2020-04-28 08:10 | NUR ---
DR STAPLETON IS ROUNDING ON PATIENT, UPDATED MD WITH PATIENT'S CURRENT CONDITION.
--- NOTE | 2020-04-28 08:20 | NUR ---
PATIENT TOOK OFF HIS O2 MASK AND DESATURATING TO 85%, ATTENDED TO PATIENT AND APPLIED MASK ON, EDUCATED PATIENT NOT TO REMOVE HIS MASK. O2 WENT BACK UP ON 95%.
--- NOTE | 2020-04-28 08:31 | NUR ---
PT. BISHOP WITH LOW CHERI SCALE AT RISK, CONTINUE TO FOLLOW PRESSURE INJURY PREVENTION INTERVENTIONS. -TURN AND REPOSITION PATIENT Q 2H -ASSESS AND MONITOR SKIN CONDITION DURING POSITION CHANGE -OFFLOAD BILATERAL HEELS BY PLACING PILLOWS UNDER CALVES AT ALL TIMES, UNLESS OTHERWISE CONTRAINDICATED -PRESSURE REDISTRIBUTION BY PLACING PILLOWS AND OFFLOADING SACRALCOCCYX -KEEP SKIN CLEAN AND DRY AT ALL TIMES.
[2020-04-28] MEDS: amLODIPine 5 MG TAB PO SCH (08:58)
[2020-04-28] MEDS: ASCORBIC ACID 500 MG TAB PO SCH (08:59)
[2020-04-28] MEDS: SEVELAMER CARBONATE 800 MG TAB PO SCH ×3 (08:59→17:00)
[2020-04-28] MEDS: ZINC SULF 220 MG CAP PO SCH ×2 (09:00→20:29)
[2020-04-28] MEDS: VITAMIN D 400 IU TAB PO SCH (09:00)
[2020-04-28] MEDS: TAMSULOSIN 0.4 MG CAP PO SCH (09:01)
[2020-04-28] MEDS: FUROSEMIDE 40 MG TAB PO SCH (09:06)
--- NOTE | 2020-04-28 09:26 | NUR ---
NGT CHECKED, SWOOSH HEARD, ADMINISTERED SCHEDULED AM MEDS VIA SUBQ AND NGT, MEDS EDUCATION PROVIDED, REINFORCEMENT NEEDED DUE TO LANGUAGE BARRIER AND MENTAL STATUS, FLUSHED BEFORE AND AFTER MEDS. STARTED NGT FEEDING PER MD ORDER, NEPRO AT 50 ML/HR. PATIENT IS RESTING ON BED COMFORTABLY, FLACC. RESPIRATION EVEN AND UNLABORED, SPO2 AT 96% AT THIS TIME. SAFETY MEASURES IN PLACE. HOB ELEVATED 35 DEGREE, BED IN LOW POSITION, AND BED LOCKED.
[2020-04-28] MEDS: DEXMEDETOMIDINE HCL 400 MCG in NACL 0.9% 96 ML IV PRN ×2 (09:33→20:59)
--- NOTE | 2020-04-28 10:18 | NUR ---
BP REMAINS HIGH 173/90 PULSE 77 AFTER AM SCHEDULED BP MED, PRN LABETALOL ADMINISTERED.
[2020-04-28] MEDS: DOCUSATE 100 MG/10 ML UDC GT PRN (10:25)
--- NOTE | 2020-04-28 10:25 | NUR ---
PATIENT IS CONSTIPATED, NO BM FOR SEVERAL DAY, AND OCCULT BLOOD SPECIMEN PENDING. PRN COLACE ADMINISTERED VIA NGT, FLUSHED. PATIENT IS RESTING ON BED COMFORTABLY, FLACC 0, AROUSABLE TO VOICE, RESPIRATION EVEN AND UNLABORED ON 8 LPM COOL AEROSOL, SPO2 97%. SAFETY MEASURES IN PLACE. BED IN LOW POSITION, CALL LIGHT WITHIN REACH, AND BED LOCKED.
--- NOTE | 2020-04-28 12:20 | NUR ---
DR HENRY IS ROUNDING ON PATIENT. NOTIFIED ELEVATED BP, AND PRN LABETALOL GIVEN, BUT NOT EFFECTIVE ON LOWERING THE BP. ASKED FOR ANOTHER ORDER, DR HENRY SAID HE WILL LOOK INTO IT.
--- NOTE | 2020-04-28 12:38 | NUR ---
ADMINISTERED SCHEDULED MEDS PER MD ORDER VIA NGT, FLUSHED BEFORE AND AFTER MEDS. PATIENT IS RESTING ON BED AT THIS TIME, AROUSABLE TO VOICE, RESPIRATION EVEN AND UNLABORED ON AEROSOL 40% 8 LPM, SPO2 92% AT THIS TIME. WHEN ASKED IF HE HAS ANY PAIN, HE SHAKES HIS HEAD. SAFETY MEASURES IN PLACE. HOB ELEVATED 35 DEGREE, BED IN LOW POSITION, CALL LIGHT WITHIN REACH, AND BED LOCKED.
--- NOTE | 2020-04-28 13:07 | NUR ---
BP 199/57 PULSE 77, PAGED DR STAPLETON FOR ANOTHER PRN ORDER FOR BP. AWAITING FOR MD TO CALL BACK.
[2020-04-28] MEDS ORDERED: amLODIPine 5 MG TAB NG SCH (13:15)
--- NOTE | 2020-04-28 13:17 | NUR ---
RECEIVED VERBAL ORDER AT NURSING FROM DR HENRY FOR ELEVATED BP. AMLODIPINE 10 MG NGT DAILY, START A ONCE TIME DOSE AMLODIPINE 10 MG NOW. LABETALOL 20 MG Q4H PRN FOR ELEVATED BP PER PARAMETER. REPEATED AND CONFIRMED ORDERS WITH DR HENRY, WILL INPUT ACCORDINGLY.
--- NOTE | 2020-04-28 14:13 | NUR ---
PRN AMLODIPINE 10 MG ADMINISTERED FOR BP 197/93 PULSE 77.
--- NOTE | 2020-04-28 14:42 | NUR ---
STARTED A NEW BOTTLE OF NGT FEEDING NEPRO AT 50 ML/HR, WATER FLUSH 100 ML/Q4H, CHANGED TUBING.
--- NOTE | 2020-04-28 15:55 | NUR ---
BP 165/97 PULSE 78, SPO2 90%, RR 25. ADMINISTERED PRN LABETALOL VIS IVP. PATIENT IS WATCHING TV ON BED, NO SIGNS OF ACUTE DISTRESS NOTED. SAFETY MEASURES IN PLACE.
--- NOTE | 2020-04-28 18:20 | NUR ---
SCHEDULED MEDS ADMINISTERED VIA NGT, FLUSHED BEFORE AND AFTER MEDS. PATIENT AWAKE AND WATCHING THE NEWS ON BED COMFORTABLY, NO SIGNS OF ACUTE DISTRESS NOTED. SAFETY MEASURES IN PLACE.
--- NOTE | 2020-04-28 19:14 | NUR ---
ENDORSED PATIENT TO FINISHER WALLBOARD AND PLASTERBOARD NURSE TAM FOR CONTINUITY OF CARE. PATIENT IS IN STABLE CONDITION. SAFETY MEASURES IN PLACE.
--- NOTE | 2020-04-28 19:33 | NUR ---
RECEIVED PATIENT IN SUPINE POSITION , ON 15 LPM NON REBREATHER WITH O2 SAT 94%, PATIENT IS AWAKE , ALERT , STILL NPO , ON NG TUBE FEEDING WITH NEPRO AT 50 CC/HR, RIGHT SUBCLAVIAN TUNNEL CATHETER INTACT FOR HEMODIALYSIS ACCESS, HD TOMORROW, SCHUMACHER CATHETER IN PLACE AND DRAINING TO GRAVITY, IV DRIP : PRECEDEX 0.4 MCG/KG/HR, WILL CONTINUE TO MONITOR.
--- NOTE | 2020-04-28 20:18 | NUR ---
RECEIVED PT ON COOL AEROSOL 8L @ 30L. PT AWAKE ALERT AND RESPONSIVE. ASSESSED PT AND PLACED PT ON BUBBLE HIGH FLOW NASAL CANNULA @ 5L WITH SPO2 OF 98%. RN NOTIFIED. WILL CONTINUE TO MONITOR PT.
[2020-04-28] MEDS: INSULIN LANTUS 100 UNITS/ML 10 ML VIAL SUBQ SCH (20:52)
[2020-04-29] VITALS (20 sets, daily range): BP systolic 144–202; BP diastolic 61–172
[2020-04-29] MEDS: ALBUTEROL SULFATE/IPRATROPIU 3 ML SOL IH SCH ×6 (03:36→22:44)
[2020-04-29] MEDS: LABETALOL 100 MG/20 ML VIAL IV PRN ×2 (04:42→12:30)
--- NOTE | 2020-04-29 05:00 | NUR ---
BM X1 WITH SOFT YELLOW STOOL, NOT CRITERIA TO COLLECT SPECIMEN FOR C - DIFF.
--- NOTE | 2020-04-29 05:17 | NUR ---
ORAL CARE AND SKIN CARE PROVIDED , PATIENT TOLERATED N/C , RT TITRATED TO 4 LPM PER RT. AM LAB DRAW .
[2020-04-29] MEDS: ALUMINUM HYDROXIDE 64 MG/ML BOTTLE GT SCH ×3 (05:36→17:34)
--- NOTE | 2020-04-29 05:51 | NUR ---
RECEIVED A CALL FROM LAB REGARDING BUN 120 AND CREATININE 7.7, PATIENT IS GOING TO HAVE HD TODAY , HD NURSE AWARE- CHARGE NURSE INFORMED MARX LAST NIGHT. WILL ENDORSE TO DAY SHIFT NURSE.
[2020-04-29 06:16] LABS: BASOPHILS % (AUTO) 0.3 % (0.0-2.0); HEMATOCRIT 32.2 % (36-52); HEMOGLOBIN 10.4 g/dL (12.0-18.0); LYMPHOCYTES # (AUTO) 1.1 K/uL (2.0-11.5); LYMPHOCYTES % (AUTO) 12.4 % (20.5-51.1); MEAN CORPUSCULAR HEMOGLOBIN 27 pg (27-31); MEAN CORPUSCULAR HGB CONC 33 g/dL (33-37); MEAN CORPUSCULAR VOLUME 84.3 fL (80-94); MONOCYTES # (AUTO) 0.9 K/uL (0.8-1.0); MONOCYTES % (AUTO) 9.5 % (1.7-9.3); NEUTROPHILS # (AUTO) 7.2 K/uL (1.8-7.7); NEUTROPHILS % (AUTO) 77.8 % (42.2-75.2); PLATELET COUNT (AUTO) 391 K/uL (140-450); RED BLOOD CELL COUNT(AUTO) 3.82 MIL/uL (4.20-6.10); WHITE BLOOD COUNT (AUTO) 9.3 K/uL (4.8-10.8)
[2020-04-29 06:46] LABS: ALBUMIN 2.2 g/dL (3.4-5.0); ANION GAP 15.5 (8-16); CARBON DIOXIDE 27.1 mmol/L (21-32); MAGNESIUM 2.8 mg/dL (1.8-2.4); PHOSPHORUS 6.7 mg/dL (2.5-4.9); POTASSIUM 4.6 mmol/L (3.5-5.1); TOTAL BILIRUBIN 0.4 mg/dL (0.0-1.0)
[2020-04-29 06:51] LABS: CREATININE 7.7 mg/dL (0.6-1.3)
--- NOTE | 2020-04-29 07:20 | NUR ---
RECEIVED BEDSIDE REPORT FROM LOSS PREVENTION OFFICER NURSE TAM FOR CONTINUITY OF CARE. PATIENT LYING ON BED COMFORTABLY AT THIS TIME, FLACC 0, RASS 0, DRY WEIGHT 83 KG. PATIENT IS AWAKE AND WATCHING TV ON BED COMFORTABLY AT THIS TIME. RESPIRATION EVEN AND UNLABORED ON 4 LPM VIA NC, SPO2 AT 93% AT THIS TIME. LUNGS SOUND DIMINISHED ON AUSCULTATION. NO SIGNS OF ACUTE DISTRESS NOTED. NG TUBE TO R NARE, GLUCERNA 1.2 RUNNING AT 50 ML/HR THIS TIME. TALON MIDLINE, CLEAN AND INTACT, RUNNING PRECEDEX 0.4 MCG/KG/HR. R SUBCLAVIAN TUNNEL CATHETER FOR HD. SCHUMACHER IN PLACE, DRAINING WITH GRAVITY, MINIMAL YELLOW URINE NOTED. R FOOT TOE AMPUTATION NOTED, OTHERWISE, SKIN CLEAN, WARM TO TOUCH. ABDOMEN SOFT, NON-TENDER. MASTER CONTROL TECHNICIAN IN PLACE. SAFETY MEASURES IN PLACE. HOB ELEVATED 35 DEGREE, BED IN LOW POSITION, AND BED LOCKED. Addendum: 04/29/20 at 0848 by Sangita Wright RN ERROR: FEEDING FORMULA IS NEPRO.
--- NOTE | 2020-04-29 07:37 | NUR ---
FRANCISCO J CUSTOMER QUALITY SPECIALIST MADE AWARE THAT PATIENT HAS ORDER FOR HD TODAY.
--- NOTE | 2020-04-29 08:13 | NUR ---
DR STAPLETON IS ROUNDING ON PATIENT, UPDATED MD WITH PATIENT'S CURRENT CONDITION.
--- NOTE | 2020-04-29 08:41 | NUR ---
MARLEEN SPECIAL NEEDS TUTOR IS SETTING PATIENT READY FOR HD.
[2020-04-29] MEDS: FUROSEMIDE 40 MG TAB PO SCH (08:53)
[2020-04-29] MEDS: TAMSULOSIN 0.4 MG CAP PO SCH (08:53)
[2020-04-29] MEDS: ASCORBIC ACID 500 MG TAB PO SCH (08:54)
[2020-04-29] MEDS: SEVELAMER CARBONATE 800 MG TAB PO SCH ×3 (08:54→17:33)
[2020-04-29] MEDS: VITAMIN D 400 IU TAB PO SCH (08:55)
[2020-04-29] MEDS: ZINC SULF 220 MG CAP PO SCH ×2 (08:55→21:15)
--- NOTE | 2020-04-29 08:57 | NUR ---
ASSESSED NGT, GLADIS HEARD, INTACT. ADMINISTERED SCHEDULED AM MEDS VIA SUBQ AND NGT, MEDS EDUCATION PROVIDED, REINFORCEMENT NEEDED DUE TO LANGUAGE BARRIER AND MENTAL STATUS, FLUSHED BEFORE AND AFTER MEDS. WILL HOLD AMLODIPINE FOR NOW, PATIENT IS IN DIALYSIS. PATIENT IS RESTING ON BED COMFORTABLY, DENIED ANY DISTRESS. PATIENT ASKED FOR WATER,EXPLAINED HE HAS TO DO A SWALLOW EVALUATION TO ENSURE SAFETY, ICE CHIPS PROVIDED. RESPIRATION EVEN AND UNLABORED ON 4 LPM VIA NC, SPO2 AT 93% AT THIS TIME. SAFETY MEASURES IN PLACE. HOB ELEVATED 35 DEGREE, BED IN LOW POSITION, AND BED LOCKED.
[2020-04-29] MEDS: amLODIPine 5 MG TAB NG SCH (09:00)
--- NOTE | 2020-04-29 09:23 | NUR ---
PATIENT HAS MODERATE YELLOW SOFT BM, OCCULT BLOOD COLLECTED. WILL PROVIDE HYGIENE CARE SHORTLY. PATIENT IS STILL IN DIALYSIS.
--- NOTE | 2020-04-29 10:30 | NUR ---
DR HENRY IS ROUNDING ON PATIENT.
--- NOTE | 2020-04-29 11:14 | NUR ---
BP 161/89 PULSE 84 AFTER DIALYSIS REMOVED 3, ADMINISTERED AM SCHEDULED AMLODIPINE 10 MG VIA NGT. PROVIDED HYGIENE CARE, CHANGED ALL DIRTY, REPOSITIONED PATIENT, OFFLOADED PRESSURE WITH PILLOWS, PATIENT AWAKE AND WATCHING TV COMFORTABLY ON BED. NO SIGNS OF ACUTE DISTRESS NOTED. SAFETY MEASURES IN PLACE.
--- NOTE | 2020-04-29 12:12 | NUR ---
PATIENT COMPLAINED DISCOMFORT OF NGT AND CONSTANTLY MAKING GRIMACING, REMOVED NGT. PATIENT TOLERATED WELL. SPO2 AT 92% ON 4 LPM VIA NC AT THIS TIME. SAFETY MEASURES IN PLACE.
--- NOTE | 2020-04-29 12:30 | NUR ---
BP 169/90 PULSE 82 SPO2 90% ON 4 LPM VIA NC, PRN LABETALOL GIVEN VIA IVP FOR ELEVATED BP.
--- NOTE | 2020-04-29 12:32 | NUR ---
PER DR HENRY, IF PATIENT TOLERATING WELL ON NASAL CANNULA, HE MAY DOWN GRADE TO TELE THIS EVENING. WILL MONITOR SPO2 CLOSELY.
--- NOTE | 2020-04-29 14:41 | NUR ---
04/29/20 RD INITIAL ASSESSMENT COMPLETED PLEASE REFER TO NUTRITION ASSESSMENT UNDER CARE ACTIVITY FOR ESTIMATED NUTRITIONAL NEEDS. 1. PENDING ST EVALUATION FOR DIET TEXTURE S/P EXTUBATION 2. CONSIDER CCHO 75 GM AND RENAL DIETARY RESTRICTION WHEN PATIENT IS ADVANCED TO A DIET 3. CONTINUE VITAMIN C AND VITAMIN D SUPPLEMENTATIONS 4. RD TO FOLLOW-UP 2-3 DAYS, HIGH RISK RADHA HAMILTON, RD
--- NOTE | 2020-04-29 15:49 | NUR ---
DR DIAZ IS ROUNDING ON PATIENT. INFORMED HD DONE AND REMOVED 3L. DR DIAZ SAID, HE WILL GET DIALYSIS AGAIN TOMORROW. WILL ENDORSE TO THE NEXT ONCOMING NURSE.
--- NOTE | 2020-04-29 16:07 | NUR ---
CHANGED DIET ORDER PER SUGGESTED, MECHANICAL SOFT CHOPPED. REGULAR THIN LIQUID BY STRAW OK.
--- NOTE | 2020-04-29 16:46 | NUR ---
PERIPHERAL IV ON R HAND INFILTRATED, REMOVED IV, CANNULA INTACT, NO BLEEDING ON IV SITE.
--- NOTE | 2020-04-29 16:50 | NUR ---
*ST: Bedside Swallow Evaluation* Pt is 59 yo M BIBHO from home 04/23/20 for SOB, hypoxia, (+)COVID-19 PCR 03/21/2020 and 04/02/2020. Pt baseline 3L O2 nc. Pt became hypoxic and bradycardic, intubated 04/24-04/27 (Pt self-extubated). NG-tube placed 04/24 but suspect Pt pulled out 04/28?. PMHx ESRD on HD, DM, HTN, diabetic nephropathy. CTH 04/26 (-) acute; encephalomalacia of the L frontal lobe and hypodensity of the R alice suggestive of prior infarction/trauma with Wallerian degeneration however subacute or evolving infarct is not excluded. CXR 04/29 - improved aeration of the lungs with consistent patchy infiltrates, likely representing ongoing multilobar PNA and/or edema; no pneumothorax. Cleared with RN, Sangita, for BDSE. Pt seen bedside, alert, on 2L O2 nc with humidifier, O2 sats ranging from 88-92% during session, verbalized wants/needs in clear vocal quality in Tajik. Pt reported eating Regular/Thin Liquids at home prior to admit. Pt also reports some throat pain and chest pain upon coughing. Ice chips x4, 4oz apple sauce, 4oz canned MS pears, and ~6oz thin liquids given by DIRECTOR OF EARLY CHILDHOOD EDUCATION as Pt had reduced L hand ROM and coordination. Pt engaged in sequential straw sip thin without spillage, single medicine cup sip thin with slight spillage, and tsp sip thin without spillage. No overt coughing nor throat clearing with thin. Pt stripped 100% of bolus from tsp, engaged in rotary mastication of pears that lasted for ~30 seconds to 1 minute per bite, no residue, no overt coughing nor throat clearing. Pt continued to point toward MS pears vs apple sauce for PO trials. Diet recommendations and plan of care d/w pt and pts RN. P: Rec Mechanical Soft/Thin Liquids by straw ok, feed-assist Follow safe swallow strategies, oral care, aspiration precautions Nsg to monitor and notify DIRECTOR OF EARLY CHILDHOOD EDUCATION of acute changes in status -Mandi Garcia MA, CCC-DIRECTOR OF EARLY CHILDHOOD EDUCATION Addendum: 04/29/20 at [address] Amended: Links added.
[2020-04-29] MEDS: LABETALOL 100 MG TAB PO SCH (17:34)
--- NOTE | 2020-04-29 17:34 | NUR ---
ADMINISTERED SCHEDULED MEDS WITH APPLE SAUCE, BP 164/138 PULSE 94, PATIENT TOLERATED WELL. PATIENT AWAKE AND RESTING ON BED AT THIS TIME. SAFETY MEASURES IN PLACE. BED IN LOW POSITION, CALL LIGHT WITHIN REACH, FALL RISK PROTOCOL IN PLACE.
--- NOTE | 2020-04-29 18:51 | NUR ---
PATIENT TRANSFERRED TO ROOM 106B, REPORT GIVEN TO YONATAN DIAZ, PATIENT IS IN STABLE CONDITION.
--- NOTE | 2020-04-29 18:52 | NUR ---
PATIENT TRANSFERRED TO TELE BED SAFELY. PATIENT IN SABLE CONDITION. WILL CONTINUE TO MONITOR.
--- NOTE | 2020-04-29 18:55 | NUR ---
KAVITA CHANG MADE AWARE THAT PATIENT IS TRANSFERRED TO ROOM 106B, ANSWERED ALL QUESTIONS, BERNARDO WAS AWARE.
--- NOTE | 2020-04-29 19:17 | NUR ---
GAVE REPORT TO BALLET DANCER NURSE FOR CONTINUITY OF CARE. PATIENT IN STABLE CONDITION.
--- NOTE | 2020-04-29 19:17 | NUR ---
RECEIVED PATIENT FROM AM SHIFT NURSE FOR CONTINUITY OF CARE. ABLE TO MAKE SIMPLE NEEDS KNOWN. RESPIRATIONS EVEN, UNLABORED. CONTINUES ON O2 4L VIA NC, O2SAT 95%. NO S/S RESPIRATORY DISTRESS. SKIN WARM, DRY. RIGHT UPPER ARM MIDLINE NOTED, DRESSING CLEAN/DRY/INTACT. ABDOMEN SOFT, NONTENDER. BOWEL SOUNDS ACTIVE X4 QUADRANTS. SCHUMACHER CATHETER PATENT WITH YELLOW URINE DRAINING TO GRAVITY. SAFETY PRECAUTIONS IN PLACE. CALL LIGHT WITHIN REACH.
--- NOTE | 2020-04-29 21:00 | NUR ---
DUE MEDS GIVEN. NO S/S ACUTE DISTRESS. SAFETY PRECAUTIONS IN PLACE. CALL LIGHT WITHIN REACH.
[2020-04-29] MEDS: INSULIN LANTUS 100 UNITS/ML 10 ML VIAL SUBQ SCH (21:15)
[2020-04-29] MEDS: INSULIN LISPRO SLIDING SCALE 100 UNITS/ML VIAL SUBQ PRN (21:16)
[2020-04-29] MEDS: ZOLPIDEM 5 MG TAB PO PRN (22:00)
--- NOTE | 2020-04-29 23:00 | NUR ---
PATIENT TURNED AND REPOSITIONED. NO S/S ACUTE DISTRESS. SAFETY PRECAUTIONS IN PLACE. CALL LIGHT WITHIN REACH.
[2020-04-30] VITALS: BP 154/76
--- NOTE | 2020-04-30 01:00 | NUR ---
MADE ROUNDS. PATIENT IS ASLEEP. NO S/S ACUTE DISTRESS. SAFETY PRECAUTIONS IN PLACE. CALL LIGHT WITHIN REACH.
--- NOTE | 2020-04-30 03:00 | NUR ---
PATIENT IS ASLEEP. NO S/S ACUTE DISTRESS. SAFETY PRECAUTIONS IN PLACE. CALL LIGHT WITHIN REACH.
[2020-04-30] MEDS: ALBUTEROL SULFATE/IPRATROPIU 3 ML SOL IH SCH ×3 (03:09→23:30)
[2020-04-30 04:00] VITALS: BP 160/75
--- NOTE | 2020-04-30 05:00 | NUR ---
PATIENT PLAYING WITH NASAL CANNULA. PROVIDED EDUCATION REGARDING OXYGEN THERAPY. PATIENT VERBALIZED UNDERSTANDING BUT NEEDS REINFORCEMENT.
[2020-04-30] MEDS: ALUMINUM HYDROXIDE 64 MG/ML BOTTLE GT SCH ×5 (05:02→23:47)
[2020-04-30 06:29] LABS: BASOPHILS % (AUTO) 0.1 % (0.0-2.0); EOSINOPHILS # (AUTO) 0.2 K/uL (0-0.4); EOSINOPHILS % (AUTO) 1.2 % (0.0-4.0); HEMATOCRIT 31.9 % (36-52); HEMOGLOBIN 10.4 g/dL (12.0-18.0); LYMPHOCYTES # (AUTO) 1.6 K/uL (2.0-11.5); LYMPHOCYTES % (AUTO) 11.3 % (20.5-51.1); MEAN CORPUSCULAR HEMOGLOBIN 27 pg (27-31); MEAN CORPUSCULAR HGB CONC 33 g/dL (33-37); MEAN CORPUSCULAR VOLUME 83.6 fL (80-94); MONOCYTES # (AUTO) 1.1 K/uL (0.8-1.0); NEUTROPHILS # (AUTO) 10.9 K/uL (1.8-7.7); NEUTROPHILS % (AUTO) 79.4 % (42.2-75.2); PLATELET COUNT (AUTO) 387 K/uL (140-450); RED BLOOD CELL COUNT(AUTO) 3.82 MIL/uL (4.20-6.10); RED CELL DISTRIBUTION WIDTH 14.9 % (11.6-13.7); WHITE BLOOD COUNT (AUTO) 13.7 K/uL (4.8-10.8)
[2020-04-30 07:21] LABS: MAGNESIUM 2.5 mg/dL (1.8-2.4); PHOSPHORUS 6.2 mg/dL (2.5-4.9)
--- NOTE | 2020-04-30 07:30 | NUR ---
RECEIVED PT FROM RIBBON CUTTER NURSE, PT IS AWAKE IN BED, ON 4LNC, TALON MIDLINE PRESENT SALINE LOCKED, R. TUNNEL CHEST CATH PRESENT, SCHUMACHER PRESENT, TELE MONITOR ON, SAFETY AND FALL PRECAUTIONS IN PLACE, WILL CONTINUE TO MONITOR.
[2020-04-30 08:00] VITALS: BP 154/83
[2020-04-30] MEDS: SEVELAMER CARBONATE 800 MG TAB PO SCH ×3 (09:43→18:04)
[2020-04-30] MEDS: VITAMIN D 400 IU TAB PO SCH (09:43)
[2020-04-30] MEDS: TAMSULOSIN 0.4 MG CAP PO SCH (09:43)
[2020-04-30] MEDS: amLODIPine 5 MG TAB NG SCH (09:44)
[2020-04-30] MEDS: LABETALOL 100 MG TAB PO SCH ×3 (09:44→18:05)
[2020-04-30] MEDS: ASCORBIC ACID 500 MG TAB PO SCH (09:44)
[2020-04-30] MEDS: FUROSEMIDE 40 MG TAB PO SCH (09:45)
--- NOTE | 2020-04-30 10:00 | NUR ---
SCHEDULED MEDICATION ADMINISTERED, PT EDUCATION PROVED, PT VERBALIZED UNDERSTANDING BP 155/79, HR 80, RR 18, 02 94%, CALL LIGHT WITHIN REACH, WILL CONTINUE TO MONITOR.
[2020-04-30 12:00] VITALS: BP 132/68
--- NOTE | 2020-04-30 12:15 | NUR ---
PT IS RESTING IN BED, NO SIGNS OF DISTRESS NOTED, CALL LIGHT WITHIN REACH, WILL CONTINUE TO MONITOR.
--- NOTE | 2020-04-30 13:04 | NUR ---
SCHEDULED MEDICATION ADMINISTERED, PT IS AWAKE IN BED, BP 132/68, APICAL HR 78, RR 18, NO SIGNS OF DISTRESS NOTED, CALL LIGHT WITHIN REACH, EDUCATION PROVIDED, PT VERBALIZED UNDERSTANDING, WILL CONTINUE TO MONITOR.
--- NOTE | 2020-04-30 13:27 | NUR ---
BOWEL MOVEMENT NOTED, PT CHANGED AND CLEANED, CALL LIGHT WITHIN REACH, SAFETY AND FALL PRECAUTIONS IN PLACE. WILL CONTINUE TO MONITOR.
[2020-04-30 16:00] VITALS: BP 149/69
--- NOTE | 2020-04-30 17:12 | NUR ---
PATIENT PLACED ON RA TRIAL, SATURATIONS DROPPED TO 86%.
--- NOTE | 2020-04-30 18:16 | NUR ---
SCHEDULED MEDICATIONS ADMINISTERED, PT IS RESTING IN BED, NO SIGNS OF DISTRESS NOTED, HR 80, BP 142/78, EDUCATION PROVIDED, WILL CONTINUE TO MONITOR.
--- NOTE | 2020-04-30 19:25 | NUR ---
ENDORSED PT TO MULTIMEDIA TEACHER NURSE FOR CONTINUITY OF CARE.
--- NOTE | 2020-04-30 19:26 | NUR ---
RECEIVED REPORT FROM DAY EMILY PEREZ. PT AOX1, CONFUSED ON 4L NC. NO S/S RESPIRATORY DISTRESS. FLACC 0. HAS TALON MIDLINE, S.L. SAFETY MEASURES IN PLACE. CALL LIGHT WITHIN REACH. WILL CONTINUE TO MONITOR
[2020-04-30 20:00] VITALS: BP 140/73
[2020-04-30] MEDS: PIPERACILLIN/TAZOBACTAM 2.25 GM in DEXTROSE 5% 50 ML IV SCH (20:11)
--- NOTE | 2020-04-30 20:29 | NUR ---
ADMINISTERED SCHEDULED MEDICATIONS, TOLERATED WELL. WILL CONTINUE TO MONITOR
[2020-04-30] MEDS: BLOOD GLUCOSE MONITORING 1 DEV DEV FS SCH (21:44)
[2020-04-30] MEDS: INSULIN LANTUS 100 UNITS/ML 10 ML VIAL SUBQ SCH (21:52)
[2020-04-30] MEDS: INSULIN LISPRO SLIDING SCALE 100 UNITS/ML VIAL SUBQ PRN (21:58)
--- NOTE | 2020-04-30 22:00 | NUR ---
BLOOD SUGAR 264, GAVE 6 UNITS INSULIN SUBQ. WILL CONTINUE TO MONITOR
[2020-04-30] MEDS: ZOLPIDEM 5 MG TAB PO PRN (23:47)
[2020-05-01] VITALS: BP 160/80
--- NOTE | 2020-05-01 00:30 | NUR ---
PT ASLEEP IN BED, NC IN PLACE. NO S/S ACUTE DISTRESS NOTED. WILL CONTINUE TO MONITOR
[2020-05-01] MEDS: ALBUTEROL SULFATE/IPRATROPIU 3 ML SOL IH SCH ×6 (03:00→23:36)
[2020-05-01 04:00] VITALS: BP 155/75
[2020-05-01] MEDS: PIPERACILLIN/TAZOBACTAM 2.25 GM in DEXTROSE 5% 50 ML IV SCH ×3 (04:16→20:20)
[2020-05-01] MEDS: ALUMINUM HYDROXIDE 64 MG/ML BOTTLE GT SCH ×4 (05:14→23:15)
[2020-05-01] MEDS: BLOOD GLUCOSE MONITORING 1 DEV DEV FS SCH ×4 (06:09→20:20)
--- NOTE | 2020-05-01 07:07 | NUR ---
PT ASLEEP IN BED. NC IN PLACE, NO S/S ACUTE DISTRESS, PT IS IN STABLE CONDITION. WILL ENDORSE TO DAY RN FOR CONTINUITY OF CARE
--- NOTE | 2020-05-01 07:26 | NUR ---
RECEIVED REPORT FROM CONSULTANT ELECTRONICS RN FOR CONTINUITY OF CARE. PATIENT ASLEEP IN RIGHT LATERAL POSITION WITH 4L NC, IV TO RIGHT UPPER ARM MIDLINE SL. PATIENT ALSO HAS RIGHT TUNNEL CATH TO RIGHT UPPER CHEST FOR DIALYSIS. HD SCHEDULED EVERY SUNDAY, WEDNESDAYS AND FRIDAYS, HOWEVER, PATIENT HAS HD TODAY, PER CONSULTANT ELECTRONICS. NO ACUTE DISTRESS NOTED AT THIS TIME, SAFETY MEASURES IN PLACE, CALL LIGHT WITHIN REACH, WILL CONTINUE TO MONITOR.
[2020-05-01 08:00] VITALS: BP 154/74
[2020-05-01] MEDS: amLODIPine 5 MG TAB NG SCH (09:00)
[2020-05-01] MEDS: LABETALOL 100 MG TAB PO SCH ×4 (09:00→17:00)
[2020-05-01] MEDS: FUROSEMIDE 40 MG TAB PO SCH (09:00)
[2020-05-01] MEDS: SEVELAMER CARBONATE 800 MG TAB PO SCH ×3 (09:10→18:22)
[2020-05-01] MEDS: TAMSULOSIN 0.4 MG CAP PO SCH (09:10)
--- NOTE | 2020-05-01 09:12 | NUR ---
SCHEDULED MORNING MEDICATIONS GIVEN WITH APPLE SAUCE. BP MEDS HOLD FOR DIALYSIS. EDUCATION PROVIDED. PATIENT IN STABLE CONDITION WITH 4L NC. WILL CONTINUE TO MONITOR.
--- NOTE | 2020-05-01 11:02 | NUR ---
PATIENT RESTING IN BED WITH NO ACUTE DISTRESS NOTED. ON 3L NC. SAFETY MEASURES IN PLACE, WILL CONTINUE TO MONITOR.
[2020-05-01 11:43] LABS: BASOPHILS % (AUTO) 0.2 % (0.0-2.0); EOSINOPHILS # (AUTO) 0.4 K/uL (0-0.4); EOSINOPHILS % (AUTO) 2.6 % (0.0-4.0); HEMATOCRIT 30.9 % (36-52); HEMOGLOBIN 10.2 g/dL (12.0-18.0); LYMPHOCYTES # (AUTO) 1.8 K/uL (2.0-11.5); LYMPHOCYTES % (AUTO) 12.7 % (20.5-51.1); MEAN CORPUSCULAR HEMOGLOBIN 27 pg (27-31); MEAN CORPUSCULAR HGB CONC 33 g/dL (33-37); MEAN CORPUSCULAR VOLUME 83.1 fL (80-94); MONOCYTES # (AUTO) 0.7 K/uL (0.8-1.0); MONOCYTES % (AUTO) 4.9 % (1.7-9.3); NEUTROPHILS # (AUTO) 11.4 K/uL (1.8-7.7); NEUTROPHILS % (AUTO) 79.6 % (42.2-75.2); PLATELET COUNT (AUTO) 394 K/uL (140-450); RED BLOOD CELL COUNT(AUTO) 3.72 MIL/uL (4.20-6.10); RED CELL DISTRIBUTION WIDTH 15.5 % (11.6-13.7); WHITE BLOOD COUNT (AUTO) 14.3 K/uL (4.8-10.8)
[2020-05-01 11:54] LABS: ANION GAP 16.6 (8-16); CARBON DIOXIDE 21.5 mmol/L (21-32); POTASSIUM 5.1 mmol/L (3.5-5.1)
[2020-05-01 11:55] LABS: PHOSPHORUS 6.6 mg/dL (2.5-4.9)
[2020-05-01 12:00] VITALS: BP 160/83
[2020-05-01 12:03] LABS: CREATININE 7.8 mg/dL (0.6-1.3)
--- NOTE | 2020-05-01 13:32 | NUR ---
PATIENT RESTING IN BED WITH NO ACUTE DISTRESS NOTED. DENIES PAIN OR DISCOMFORT. WILL CONTINUE TO MONITOR.
[2020-05-01 16:00] VITALS: BP 150/72
--- NOTE | 2020-05-01 17:02 | NUR ---
PATIENT IS UNDER DIALYSIS WITH DIALYSIS NURSE AT BEDSIDE. V/S BEEN MONITORING, NO ACUTE DISTRESS NOTED, WILL CONTINUE TO MONITOR.
[2020-05-01] MEDS: INSULIN LISPRO SLIDING SCALE 100 UNITS/ML VIAL SUBQ PRN ×2 (17:22→20:22)
--- NOTE | 2020-05-01 17:22 | NUR ---
4 UNITS OF HUMALOG GIVEN FOR BS LEVEL 203. NO ACUTE DISTRESS NOTED AT THIS TIME, WILL CONTINUE TO MONITOR.
--- NOTE | 2020-05-01 19:10 | NUR ---
ENDORSED PATIENT TO GOVERNMENT AFFAIRS MANAGER RN FOR CONTINUITY OF CARE, PATIENT IN STABLE CONDITION. O2 SAT 97%.
--- NOTE | 2020-05-01 19:11 | NUR ---
RECEIVED BEDSIDE REPORT FROM DAY RN. PATIENT IS AAOX4. ITALIAN SPEAKING ONLY. HD IN PROGRESS. RESPIRATIONS ARE EQUAL AND UNLABORED ON NC 3.5L SAT WELL 96%. IV TO RIGHT UPPER ARM MIDLINE SL. PATIENT ALSO HAS RIGHT TUNNEL CATH TO RIGHT UPPER CHEST FOR DIALYSIS. SKIN IS INTACT. NO ACUTE DISTRESS NOTED AT THIS TIME. POC DISCUSSED WITH PT. SAFETY MEASURES IN PLACE, CALL LIGHT WITHIN REACH, WILL CONTINUE TO MONITOR.
--- NOTE | 2020-05-01 19:30 | NUR ---
HD COMPLETE 2L OUT. VSS.
[2020-05-01 20:00] VITALS: BP 128/80
--- NOTE | 2020-05-01 20:20 | NUR ---
VSS. FREDDY MEDICATIONS GIVEN PER ORDERS. BLOOD SUGAR 224 ADMINISTERED INSULIN PER SLIDING SCALE. SNACK AT BEDSIDE. MED EDUCATION GIVEN PT VERBALIZED UNDERSTANDING. ALL NEEDS MET. CALL LIGHT IS WITHIN REACH.
[2020-05-01] MEDS: INSULIN LANTUS 100 UNITS/ML 10 ML VIAL SUBQ SCH (20:21)
--- NOTE | 2020-05-01 22:15 | NUR ---
ROUNDS MADE. PT APPEARS TO BE SLEEPING IN BED WITH EYES CLOSED. CHEST RISE AND FALL NOTED. CALL LIGHT IS WITHIN REACH.
[2020-05-01] MEDS: LABETALOL 100 MG/20 ML VIAL IV PRN (23:37)
--- NOTE | 2020-05-01 23:37 | NUR ---
BP ELEVATED 169/81 HR 89 ADMIN PRN LABETALOL. ALL NEEDS MET. SAFETY MEASURES ARE IN PLACE.
[2020-05-02] VITALS: BP 169/81
--- NOTE | 2020-05-02 00:50 | NUR ---
BP RECHECKED 156/79 HR 79. PT CRIED WHILE HE EXPRESSED FEELING STRESSED AND SAD BECAUSE HE CANNOT WALK D/T TOES AMPUTATION ON R FOOT X 2 YEARS AGO. LISTEN TO PATIENT AND ATTEMPT TO GIVE WORDS OF ENCOURAGEMENT. PT DENIES SI OR HISTORY OF SI. HE STATES HE IS FEELING OVERWHELMED AND IS TIRED OF BEING IN THE HOSPITAL. WILL ENDORSE TO MD IN AM FOR POSSIBLE ORDERS. WILL CONTINUE TO MONITOR AND ENCOURAGE PT TO EXPRESS FEELINGS AND CONCERNS TO STAFF. CALL LIGHT IS WITHIN REACH.
--- NOTE | 2020-05-02 02:20 | NUR ---
MADE ROUNDS. PT APPEARS TO BE SLEEPING. CHEST RISE AND FALL NOTED. CALL LIGHT IS WITHIN REACH. WILL CONTINUE TO MONITOR.
[2020-05-02 04:00] VITALS: BP 152/76
--- NOTE | 2020-05-02 04:00 | NUR ---
VITAL SIGNS ARE WITHIN NORMAL LIMITS. ALL SAFETY MEASURES ARE IN PLACE. WILL CONTINUE TO MONITOR.
[2020-05-02] MEDS: PIPERACILLIN/TAZOBACTAM 2.25 GM in DEXTROSE 5% 50 ML IV SCH ×3 (05:07→20:15)
[2020-05-02] MEDS: ALUMINUM HYDROXIDE 64 MG/ML BOTTLE GT SCH ×4 (05:07→23:10)
[2020-05-02] MEDS: BLOOD GLUCOSE MONITORING 1 DEV DEV FS SCH ×4 (05:19→20:11)
--- NOTE | 2020-05-02 05:58 | NUR ---
BLOOD SUGAR 144 NO COVERAGE NEEDED. ASSISTED PT WITH EATING CRACKERS AND MILK. PT TOLERATED WELL. ALL NEEDS MET. CALL LIGHT IS WITHIN REACH.
--- NOTE | 2020-05-02 07:15 | NUR ---
GAVE BEDSIDE REPORT TO DAY RN. PT ENDORSED IN STABLE CONDITION.
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
[2020-05-02 07:22] LABS: BASOPHILS % (AUTO) 0.1 % (0.0-2.0); EOSINOPHILS # (AUTO) 0.1 K/uL (0-0.4); EOSINOPHILS % (AUTO) 0.4 % (0.0-4.0); HEMOGLOBIN 9.8 g/dL (12.0-18.0); LYMPHOCYTES # (AUTO) 1.6 K/uL (2.0-11.5); LYMPHOCYTES % (AUTO) 11.1 % (20.5-51.1); MEAN CORPUSCULAR HEMOGLOBIN 27 pg (27-31); MEAN CORPUSCULAR HGB CONC 33 g/dL (33-37); MEAN CORPUSCULAR VOLUME 83.7 fL (80-94); MONOCYTES # (AUTO) 0.6 K/uL (0.8-1.0); MONOCYTES % (AUTO) 4.5 % (1.7-9.3); NEUTROPHILS # (AUTO) 11.9 K/uL (1.8-7.7); NEUTROPHILS % (AUTO) 83.9 % (42.2-75.2); PLATELET COUNT (AUTO) 384 K/uL (140-450); RED BLOOD CELL COUNT(AUTO) 3.59 MIL/uL (4.20-6.10); RED CELL DISTRIBUTION WIDTH 15.2 % (11.6-13.7); WHITE BLOOD COUNT (AUTO) 14.1 K/uL (4.8-10.8)
[2020-05-02 07:27] LABS: MAGNESIUM 2.4 mg/dL (1.8-2.4); PHOSPHORUS 5.3 mg/dL (2.5-4.9)
[2020-05-02 07:34] LABS: ANION GAP 15.3 (8-16); CARBON DIOXIDE 24.1 mmol/L (21-32); POTASSIUM 4.4 mmol/L (3.5-5.1)
[2020-05-02 07:37] LABS: CREATININE 5.3 mg/dL (0.6-1.3)
[2020-05-02] MEDS: ALBUTEROL SULFATE/IPRATROPIU 3 ML SOL IH SCH ×2 (07:57→12:20)
[2020-05-02 08:00] VITALS: BP 168/78
[2020-05-02] MEDS: TAMSULOSIN 0.4 MG CAP PO SCH (08:44)
[2020-05-02] MEDS: FUROSEMIDE 40 MG TAB PO SCH (08:45)
[2020-05-02] MEDS: LABETALOL 100 MG TAB PO SCH ×3 (08:45→16:20)
[2020-05-02] MEDS: amLODIPine 5 MG TAB NG SCH (08:45)
[2020-05-02] MEDS: SEVELAMER CARBONATE 800 MG TAB PO SCH ×2 (08:45→16:19)
--- NOTE | 2020-05-02 08:50 | NUR ---
SCHEDULED MEDICATIONS GIVEN, EDUCATION PROVIDED. SAFETY MEASURES IN PLACE, NO ACUTE DISTRESS NOTED. WILL CONTINUE TO MONITOR.
--- NOTE | 2020-05-02 11:03 | NUR ---
PATIENT RESTING IN BED TALKING OVER THE PHONE. NO ACUTE DISTRESS NOTED. WILL CONTINUE TO MONITOR.
[2020-05-02 12:00] VITALS: BP 140/71
[2020-05-02] MEDS: INSULIN LISPRO SLIDING SCALE 100 UNITS/ML VIAL SUBQ PRN ×2 (12:15→16:25)
--- NOTE | 2020-05-02 12:16 | NUR ---
4 UNITS OF HUMALOG GIVEN FOR BS LEVEL 171. IV ZOSYN GIVEN VIA IVPB. PATIENT TOLERATED THE PROCEDURE WELL. PATIENT TALKING OVER THE PHONE. NO ACUTE DISTRESS NOTED. TITRATED OXYGEN TO 3L, O2 SAT 95%. HR 80. NO ACUTE DISTRESS NOTED, WILL CONTINUE TO MONITOR.
--- NOTE | 2020-05-02 12:35 | NUR ---
PATIENT RECEIVING BREATHING TREATMENT. NO ACUTE DISTRESS NOTED, WILL CONTINUE TO MONITOR.
--- NOTE | 2020-05-02 14:01 | NUR ---
05/02/20 RD FOLLOW UP COMPLETED. PLEASE REFER TO NUTRITION PROGRESS NOTE UNDER CARE ACTIVITY FOR ESTIMATED NUTRITION NEEDS. RD RECOMMENDATIONS: 1. CONTINUE 60GM CCHO MECHANICAL SOFT DIET; WELL TOLERATED BY PT & SUFFICIENT TO MEET >75% OF DAILY ESTIMATED ENERGY AND PROTEIN NEEDS. 2. CONSIDER ADVANCE DIET TO 75GM CCHO MECHANICAL SOFT; WILL MEET 100% ESTIMATED NEEDS. 3. ADVANCE DIET TEXTURE PER SWALLOW EVAL F/U / PT TOLERANCE TO PO DIET. 4. RD TO FOLLOW-UP 3-5 DAYS, MODERATE RISK DANYELLE BRYANT MBA, RD
--- NOTE | 2020-05-02 14:45 | NUR ---
ASSISTED PIPING BLOCKER TO CHANGE THE PATIENT. PATIENT HAD 1 BM. AND HE WAS TRYING TO GET UP AND USE RESTROOM. INFORMED PATIENT NOT TO GET UP SINCE HIS BILATERAL EXTREMITIES ARE WEAKNESS. WILL CONTINUE TO MONITOR.
[2020-05-02 16:00] VITALS: BP 138/65
--- NOTE | 2020-05-02 17:24 | NUR ---
PATIENT WAS TRYING TO WALK TO THE RESTROOM. INFORMED PATIENT THAT HE NEEDS TO USE THE CALL LIGHT TO GET ASSISTANCE WITH DIAPER CHANGE OTHER THAN WALK TO THE RESTROOM. CHANGED ANOTHER SOILED DIAPER. INFORMED THAT HE NEEDS TO REMAIN BEDREST TILL PT EVAL. WILL CONTINUE TO MONITOR.
--- NOTE | 2020-05-02 18:37 | NUR ---
MIDLINE DRESSING CHANGED.
--- NOTE | 2020-05-02 19:24 | NUR ---
RECEIVED BEDSIDE REPORT FROM DAY RN. PATIENT IS AAOX4. GREEK SPEAKING ONLY. RESPIRATIONS ARE EQUAL AND UNLABORED ON NC 3L SAT WELL 96%. IV TO RIGHT UPPER ARM MIDLINE SL. PATIENT ALSO HAS RIGHT TUNNEL CATH TO RIGHT UPPER CHEST FOR DIALYSIS. LAST HD YESTERDAY 2L OUT. SKIN IS INTACT. ON STANDARD ISOLATION. NO ACUTE DISTRESS NOTED AT THIS TIME. POC DISCUSSED WITH PT. SAFETY MEASURES IN PLACE, CALL LIGHT WITHIN REACH, WILL CONTINUE TO MONITOR.
[2020-05-02 20:00] VITALS: BP 147/69
--- NOTE | 2020-05-02 20:15 | NUR ---
VITAL SIGNS ARE WITHIN NORMAL LIMITS. BLOOD SUGAR 139 NO COVERAGE NEEDED. ADMIN FREDDY LANTUS 10U. FREDDY MEDICATIONS ADMIN PER ORDERS. MED EDUCATION GIVEN. ASSISTED PATIENT WITH EATING BEDTIME SNACK. ALL NEEDS MET. SAFETY MEASURES ARE IN PLACE. WILL CONTINUE TO MONITOR.
[2020-05-02] MEDS: INSULIN LANTUS 100 UNITS/ML 10 ML VIAL SUBQ SCH (20:16)
--- NOTE | 2020-05-02 22:01 | NUR ---
MADE ROUNDS. PT APPEARS TO BE SLEEPING IN BED WITH EYES CLOSED. CHEST RISE AND FALL NOTED. NO S/S OF DISTRESS. CALL LIGHT IS WITHIN REACH. WILL CONTINUE TO MONITOR.
[2020-05-03] VITALS: BP 139/69
--- NOTE | 2020-05-03 | NUR ---
VITAL SIGNS ARE WITHIN NORMAL LIMITS. PT IS RESTING COMFORTABLY IN BED. DENIES ANY DISTRESS. CALL LIGHT IS WITHIN REACH.
--- NOTE | 2020-05-03 02:07 | NUR ---
MADE ROUNDS. PATIENT APPEARS TO BE SLEEPING. CHEST RISE AND FALL NOTED. NO S/S OF DISTRESS. SAFETY MEASURES ARE IN PLACE. CALL LIGHT IS WITHIN REACH.
[2020-05-03 04:00] VITALS: BP 142/70
[2020-05-03] MEDS: PIPERACILLIN/TAZOBACTAM 2.25 GM in DEXTROSE 5% 50 ML IV SCH ×3 (04:00→21:41)
--- NOTE | 2020-05-03 04:00 | NUR ---
PATIENT APPEARS TO BE SLEEPING. CHEST RISE AND FALL NOTED. PT IS EASILY AROUSABLE. VITAL SIGNS ARE WITHIN NORMAL LIMITS. ALL SAFETY MEASURES ARE IN PLACE. WILL CONTINUE TO MONITOR.
[2020-05-03] MEDS: BLOOD GLUCOSE MONITORING 1 DEV DEV FS SCH ×4 (05:37→21:14)
[2020-05-03] MEDS: ALUMINUM HYDROXIDE 64 MG/ML BOTTLE GT SCH ×3 (05:37→18:29)
[2020-05-03 06:28] LABS: BASOPHILS % (AUTO) 0.1 % (0.0-2.0); EOSINOPHILS # (AUTO) 0.2 K/uL (0-0.4); EOSINOPHILS % (AUTO) 1.4 % (0.0-4.0); HEMOGLOBIN 9.6 g/dL (12.0-18.0); LYMPHOCYTES # (AUTO) 2.2 K/uL (2.0-11.5); MEAN CORPUSCULAR HEMOGLOBIN 28 pg (27-31); MEAN CORPUSCULAR HGB CONC 33 g/dL (33-37); MEAN CORPUSCULAR VOLUME 83.6 fL (80-94); MONOCYTES # (AUTO) 0.8 K/uL (0.8-1.0); MONOCYTES % (AUTO) 5.3 % (1.7-9.3); NEUTROPHILS # (AUTO) 12.2 K/uL (1.8-7.7); NEUTROPHILS % (AUTO) 79.2 % (42.2-75.2); PLATELET COUNT (AUTO) 376 K/uL (140-450); RED BLOOD CELL COUNT(AUTO) 3.46 MIL/uL (4.20-6.10); RED CELL DISTRIBUTION WIDTH 15.5 % (11.6-13.7); WHITE BLOOD COUNT (AUTO) 15.4 K/uL (4.8-10.8)
[2020-05-03 06:59] LABS: MAGNESIUM 2.3 mg/dL (1.8-2.4); PHOSPHORUS 5.5 mg/dL (2.5-4.9)
[2020-05-03] MEDS: ALBUTEROL SULFATE/IPRATROPIU 3 ML SOL IH SCH ×4 (07:01→23:00)
[2020-05-03 07:04] LABS: ANION GAP 18.3 (8-16); CARBON DIOXIDE 21.3 mmol/L (21-32); POTASSIUM 4.6 mmol/L (3.5-5.1)
--- NOTE | 2020-05-03 07:08 | NUR ---
GAVE BEDSIDE REPORT TO DAY RN. PT ENDORSED IN STABLE CONDITION.
[2020-05-03 07:09] LABS: CREATININE 6.4 mg/dL (0.6-1.3)
--- NOTE | 2020-05-03 07:09 | NUR ---
RECEIVED REPORT FROM DIRECTOR OF RECRUITING RN FOR CONTINUITY OF CARE. PATIENT ASLEEP IN BED WITH 3L NC. RIGHT UPPER ARM MIDLINE DRESSING INTACT. NO ACUTE DISTRESS NOTED. SAFETY MEASURES IN PLACE, WILL CONTINUE TO MONITOR.
[2020-05-03 08:00] VITALS: BP 141/69
[2020-05-03] MEDS: amLODIPine 5 MG TAB NG SCH (08:59)
[2020-05-03] MEDS: FUROSEMIDE 40 MG TAB PO SCH (08:59)
[2020-05-03] MEDS: TAMSULOSIN 0.4 MG CAP PO SCH (08:59)
[2020-05-03] MEDS: SEVELAMER CARBONATE 800 MG TAB PO SCH ×3 (08:59→17:01)
[2020-05-03] MEDS: LABETALOL 100 MG TAB PO SCH ×3 (09:00→17:02)
--- NOTE | 2020-05-03 09:10 | NUR ---
SCHEDULED MEDICATIONS GIVEN, EDUCATION PROVIDED. PT EVAL DONE. PATIENT BLE WEAKNESS, UNABLE TO STAND UP. INFORMED PATIENT THAT HE CANNOT WALK TO THE RESTROOM AT THIS POINT. REMAIN ON 3L NC, NO ACUTE DISTRESS NOTED, WILL CONTINUE TO MONITOR.
[2020-05-03 12:00] VITALS: BP 134/68
--- NOTE | 2020-05-03 12:08 | NUR ---
SOCIAL WORK NOTE: Patient's Orientation Unable To Assess Information Provided By BERNARDO FAUZIA - SON Comments SW WAS UNABLE TO MEET PATIENT AT BEDSIDE. SW COMPLETED ASSESSMENT WITH PATIENT'S SON, BERNAROD. Undergraduate Internship, Realtionship and Phone Number BERNARDO WALLS [phone] Healthcare Power of Education Sales Consultant No Does Patient Have a POLST No Identifying Problems No Social Work Triggers Is A Social Work Consult Needed No Mandate Report Filed No Explanation Of Identifying Problems PATIENT IS A 59-YEAR-OLD MALE ADMITTED FOR HYPOXIA. PATIENT HAS PMHX OF ESRD, HYPERTENSION, BPH, DIABETES, AND ANEMIA. PER SON, PATIENT USED TO LIVE ALONE, BUT NOW LIVES WITH SON AT [facility] [place] [address]. SON ALSO STATED THAT PATIENT RECEIVED HOME HEALTH AT ONE POINT, BUT IS UNSURE OF COMPANY NAME. Admitted From Home Pre-Admission Level Of Functioning Status Assist With ADL Level Of Functioning Comment SON STATED THAT PATIENT WAS INDEPENDENT PRIOR TO HOSPITALIZATION. BUT NOW NEEDS ASSISTANCE WITH PREPARING MEALS AND SHOPPING. Prior Resources/Services Used In Last 12 Months No Prior Resources Used Prior DME Home Oxygen Wheelchair Dialysis Hemodialysis Name And Phone Number of Dialysis Facility [facility] - [phone] ESRD Outpatient Days W ESRD Outpatient Time 1345 Living Situation Lives With Family House Other Living Situation/Comment PATIENT HAS BEEN LIVING WITH SON SINCE PATIENT HAS BEEN REQUIRING MORE ASSISTANCE WITH ADLS. Patient Had Caregiver No Home Support CG/Fam Able To Meet Need Financial Issues No Known Financial Issue Referral To The Financial Counselor Needed No Factors/Needs No D/C Needs Identified Pt/Rep Participated In Discharge Plan Yes Patient/Family Agress With Discharge Plan Yes Discharge Plan Comments TENTATIVE DISCHARGE PLAN IS FOR PATIENT TO RETURN HOME. DC Plan Status Initiated
--- NOTE | 2020-05-03 12:22 | NUR ---
PATIENT DENIES PAIN OR DISCOMFORT AT THIS TIME. MEDS GIVEN. WILL CONTINUE TO MONITOR.
--- NOTE | 2020-05-03 14:38 | NUR ---
PATIENT RESTING IN BED PLAYING WITH HIS CELLPHONE. NO ACUTE DISTRESS NOTED, WILL CONTINUE TO MONITOR.
--- NOTE | 2020-05-03 14:45 | NUR ---
ASSISTED DITCH CLEANER TO CHANGE THE PATIENT WITH 1 SOILED DIAPER. SCHUMACHER CATHETER CARE PERFORMED. SAFETY MEASURES IN PLACE, WILL CONTINUE TO MONITOR.
[2020-05-03 16:00] VITALS: BP 136/67
[2020-05-03] MEDS: INSULIN LISPRO SLIDING SCALE 100 UNITS/ML VIAL SUBQ PRN ×2 (16:59→21:43)
--- NOTE | 2020-05-03 17:21 | NUR ---
CHANGED PATIENT AGAIN WITH LARGE BM. NO ACUTE DISTRESS NOTED. TITRATED O2 FROM 3L TO 2L. O2 SAT 95%. WILL CONTINUE TO MONITOR.
--- NOTE | 2020-05-03 17:32 | NUR ---
SPOKE WITH PATIENT'S SON OVER THE PHONE, EXPLAINED TO HIM THAT PATIENT CANNOT GO TO THE RESTROOM BECAUSE HIS WEAKNESS. PT IS IN SERVICE AND HELPING HIM TO HELP INCREASE STRENGTH. PATIENT'S SON EXPLAINED TO THE PATIENT. WILL CONTINUE TO MONITOR.
--- NOTE | 2020-05-03 19:38 | NUR ---
ENDORSED PATIENT TO PAYABLE MANAGER RN FOR CONTINUITY OF CARE. PATIENT IN STABLE CONDITION WITH 2L NC
[2020-05-03 20:00] VITALS: BP 137/65
--- NOTE | 2020-05-03 20:27 | NUR ---
PT REFUSED Tx HE WAS SLEEPING NO DISTRESS NOTED WILL CONTINUE TO MONITOR
[2020-05-03] MEDS: INSULIN LANTUS 100 UNITS/ML 10 ML VIAL SUBQ SCH (21:41)
[2020-05-04] VITALS: BP 151/67
--- NOTE | 2020-05-04 01:50 | NUR ---
C/O CHEST PAIN - BP 150/80 , OH 77 , O2 SAT 97 % - ON O2 AT 2LPM/NC - ON TELE MONITOR , THE 0000 TRACING IS SR . WILL GIVE MORPHINE TIV ORDERED. WILL CONT. TO MONITOR .
--- NOTE | 2020-05-04 02:00 | NUR ---
RE VISIT PT - BP 150 / 76 , RR 20 , 0N 02 AT 2LPM - O2 SAT WNL . CALL LIGHT WITHIN REACH . URINE SPECIMEN TO BE SENT TO LAB - FOR URINE DRUG TEST .
[2020-05-04] MEDS: ALBUTEROL SULFATE/IPRATROPIU 3 ML SOL IH SCH ×4 (03:00→16:04)
[2020-05-04 04:00] VITALS: BP 146/68
[2020-05-04] MEDS: PIPERACILLIN/TAZOBACTAM 2.25 GM in DEXTROSE 5% 50 ML IV SCH ×3 (04:42→21:05)
[2020-05-04 05:57] LABS: BARBITURATE, URINE NEGATIVE ng/ml (NEG <=200); BENZODIAZEPINE, URINE NEGATIVE ng/mL (NEG <=200); CANNABINOID, URINE NEGATIVE ng/mL (NEG <=50); COCAINE, URINE NEGATIVE ng/mL (NEG <=300); OPIATE, URINE NEGATIVE ng/mL (NEG <=2000); PHENCYCLIDINE SCREEN,URINE NEGATIVE ng/mL (NEG <=25)
[2020-05-04] MEDS: BLOOD GLUCOSE MONITORING 1 DEV DEV FS SCH ×4 (06:00→21:06)
[2020-05-04 06:26] LABS: BASOPHILS % (AUTO) 0.1 % (0.0-2.0); EOSINOPHILS # (AUTO) 0.1 K/uL (0-0.4); EOSINOPHILS % (AUTO) 0.4 % (0.0-4.0); HEMATOCRIT 29.1 % (36-52); HEMOGLOBIN 9.5 g/dL (12.0-18.0); LYMPHOCYTES # (AUTO) 1.8 K/uL (2.0-11.5); LYMPHOCYTES % (AUTO) 7.8 % (20.5-51.1); MEAN CORPUSCULAR HEMOGLOBIN 27 pg (27-31); MEAN CORPUSCULAR HGB CONC 33 g/dL (33-37); MEAN CORPUSCULAR VOLUME 83.6 fL (80-94); MONOCYTES # (AUTO) 0.7 K/uL (0.8-1.0); MONOCYTES % (AUTO) 3.1 % (1.7-9.3); NEUTROPHILS # (AUTO) 20.9 K/uL (1.8-7.7); NEUTROPHILS % (AUTO) 88.6 % (42.2-75.2); PLATELET COUNT (AUTO) 423 K/uL (140-450); RED BLOOD CELL COUNT(AUTO) 3.48 MIL/uL (4.20-6.10); RED CELL DISTRIBUTION WIDTH 15.1 % (11.6-13.7); WHITE BLOOD COUNT (AUTO) 23.6 K/uL (4.8-10.8)
[2020-05-04] MEDS: ALUMINUM HYDROXIDE 64 MG/ML BOTTLE GT SCH ×4 (06:27→17:59)
[2020-05-04 06:43] LABS: CARBON DIOXIDE 20.9 mmol/L (21-32); POTASSIUM 4.9 mmol/L (3.5-5.1)
[2020-05-04 06:50] LABS: CREATININE 7.8 mg/dL (0.6-1.3)
--- NOTE | 2020-05-04 07:20 | NUR ---
RECEIVED PT FROM INTERCHANGE AGENT NURSE, LORRIE, PT IS AWAKE AND LYING ON THE BED WITH SIDE RAILS UP AND CALL LIGHT, SAFETY PRECAUTION IN PLACE, WITHIN EACH, PT HAS A SCHUMACHER CATHETER IN PLACE WITH 100ML URINE IN SCHUMACHER BAG, PT HAS A RT IJ DIALYSIS ACCESS, HAS A SCHEDULED DIALYSIS TODAY, IV LINE NOTED ON THE TALON MIDLINE WITH NS ON TKO, PT IS ON O2 2L NC, UZBEK SPEAKING AND NO SIGN OF DISTRESS NOTED. WILL CONTINUE TO MONITOR PT. Addendum: 05/04/20 at 1207 by Vianey Vences RN CORRECTION TO THE ABOVE NOTE: PT'S DIALYSIS ACCESS IS ON THE RT UPPER SUBCLAVIAN (CHEST), TUNNELED CATHETER.
[2020-05-04 08:00] VITALS: BP 111/66
--- NOTE | 2020-05-04 08:50 | NUR ---
PT IS HAVENG PHYSISCAL THERAPY EVALUATION NOW, WILL MONITOR PT.
[2020-05-04] MEDS: FUROSEMIDE 40 MG TAB PO SCH (08:58)
[2020-05-04] MEDS: SEVELAMER CARBONATE 800 MG TAB PO SCH ×3 (08:58→17:59)
[2020-05-04] MEDS: TAMSULOSIN 0.4 MG CAP PO SCH (08:58)
[2020-05-04] MEDS: amLODIPine 5 MG TAB NG SCH (08:58)
[2020-05-04] MEDS: LABETALOL 100 MG TAB PO SCH ×3 (08:59→18:03)
--- NOTE | 2020-05-04 08:59 | NUR ---
PT WAS GIVEN THE SCHEDULED AM MEDICATIONS NOW, PARAMETERS CHECKED AND WILL CONTINUE TO MONITOR PT.
--- NOTE | 2020-05-04 09:20 | NUR ---
DIALYSIS STARTED NOW.
[2020-05-04 12:00] VITALS: BP 124/70
[2020-05-04] MEDS: INSULIN LISPRO SLIDING SCALE 100 UNITS/ML VIAL SUBQ PRN ×3 (12:01→21:05)
--- NOTE | 2020-05-04 12:01 | NUR ---
PT WAS GIVEN INSULIN 2 UNITS FOR BLOOD GLUCOSE OF 183, NO SIGN OF DISTRESS NOTED, STILL HAVING DIALYSIS NOW AND WILL CONTINUE TO MONITOR PT.
--- NOTE | 2020-05-04 12:30 | NUR ---
DIALYSIS WAS FINISHED NOW AND 3L OUTPUT.
--- NOTE | 2020-05-04 13:36 | NUR ---
PT WAS GIVEN THE SCHEDULED MEDICATIONS NOW, WILL MONITOR PT.
[2020-05-04 16:00] VITALS: BP 142/61
--- NOTE | 2020-05-04 18:05 | NUR ---
PT WAS GIVEN THE SCHEDULED MEDICATIONS NOW, PARAMETERS CHECKED, WILL CONTINUE TO MONITOR PT.
--- NOTE | 2020-05-04 19:10 | NUR ---
ENDORSE PT TO WAITER/WAITRESS CLUB NURSELIBRADO FOR CONTINUITY OF CARE.
--- NOTE | 2020-05-04 19:15 | NUR ---
RECEIVED BEDSIDE REPORT FROM DAY SHIFT NURSE FOR CONTINUITY OF CARE. PT IS AWAKE AND LAYING IN BED, NODDING TO QUESTIONS APPROPRIATELY. ON 2L O2 NC WITH BREATHING UNLABORED. SR ON TELE MONITORING. SCHUMACHER CATH IN PLACE. SKIN IS WARM, DRY, AND INTACT. RIGHT SUBCLAVIAN TUNNEL CATH IN PLACE FOR HD. HD TODAY PER DAY SHIFT NURSE. RIGHT UPPER ARM MIDLINE DOUBLE LUMEN IN PLACE, TKO. PCR AND RAPID NEGATIVE, STANDARD PRECAUTIONS. PT IS STABLE. PLAN OF CARE DISCUSSED.
[2020-05-04 20:00] VITALS: BP 138/61
--- NOTE | 2020-05-04 20:49 | NUR ---
PT REFUSED Tx AND STATED HE IS OK. PT DENIES SOB + NO DISTRESS NOTED. WILL CONTINUE TO MONITOR
[2020-05-04] MEDS: INSULIN LANTUS 100 UNITS/ML 10 ML VIAL SUBQ SCH (21:00)
--- NOTE | 2020-05-04 21:11 | NUR ---
LANTUS 10 UNITS WAS HELD FOR BS OF 175. HUMALOG INSULIN WAS GIVEN ORDERED PER SLIDING SCALE, 2 UNITS. PT IS STABLE AT THIS TIME.
--- NOTE | 2020-05-04 23:00 | NUR ---
FAMILY DROPPED OFF PHONE CHILD DEVELOPMENT CONSULTANT AND IT WAS GIVEN TO PATIENT. PHONE WAS CHARGED AND WITHIN REACH. IV FLUIDS ARE INFUSING TKO TO KEEP THE MIDLINE PATENT. PT DOES NOT APPEAR TO BE IN ANY DISTRESS. ON 5L O2 NC WITH BREATHING UNLABORED. BED IS IN THE LOWEST POSITION. PT DOES NOT NEED TO BE CHANGED AT THIS TIME.
[2020-05-05] VITALS: BP 150/65
[2020-05-05] MEDS: ALUMINUM HYDROXIDE 64 MG/ML BOTTLE GT SCH ×4 (00:09→18:23)
--- NOTE | 2020-05-05 01:00 | NUR ---
ROUNDED ON PT. HE IS ASLEEP IN SEMI FOWLERS POSITION. ITEMS ARE WITHIN REACH ON BEDSIDE TABLE. CALL LIGHT IS WITHIN REACH. IV IS PATENT AND FLUSHING WELL. PT IS STABLE.
--- NOTE | 2020-05-05 03:00 | NUR ---
PT IS AWAKE AND USING CELL PHONE, WATCHING VIDEOS. PT APPEARS TO BE FRUSTRATED BUT DOES NOT RESPOND WHEN ASKED IF HE NEEDS ANYTHING. PT IS AWAKE AND AWARE, WILL CONTINUE TO MONITOR. BED IS IN THE LOWEST POSITION.
[2020-05-05 04:00] VITALS: BP 151/69
--- NOTE | 2020-05-05 05:00 | NUR ---
PT IS SLEEPING. CHEST RISE AND FALL IS SYMMETRICAL. BREATHING IS REGULAR AND EVEN. MIDLINE IS PATENT AND FLUSHING. BLANKET WAS PROVIDED FOR COMFORT. PT IS STABLE.
[2020-05-05 06:17] LABS: HEMATOCRIT 28.2 % (36-52); HEMOGLOBIN 9.3 g/dL (12.0-18.0); MEAN CORPUSCULAR HEMOGLOBIN 27 pg (27-31); MEAN CORPUSCULAR HGB CONC 33 g/dL (33-37); MEAN CORPUSCULAR VOLUME 83.2 fL (80-94); PLATELET COUNT (AUTO) 369 K/uL (140-450); RED BLOOD CELL COUNT(AUTO) 3.39 MIL/uL (4.20-6.10); RED CELL DISTRIBUTION WIDTH 15.3 % (11.6-13.7); WHITE BLOOD COUNT (AUTO) 23.5 K/uL (4.8-10.8)
[2020-05-05] MEDS: PIPERACILLIN/TAZOBACTAM 2.25 GM in DEXTROSE 5% 50 ML IV SCH ×3 (06:24→21:17)
[2020-05-05 06:35] LABS: ANION GAP 15.1 (8-16); POTASSIUM 5.1 mmol/L (3.5-5.1)
[2020-05-05] MEDS: BLOOD GLUCOSE MONITORING 1 DEV DEV FS SCH ×4 (06:41→21:17)
[2020-05-05 06:44] LABS: CREATININE 6.1 mg/dL (0.6-1.3)
--- NOTE | 2020-05-05 07:08 | NUR ---
ENDORSED PT TO DAY SHIFT NURSE FOR CONTINUITY OF CARE. PT IS STABLE AT THIS TIME. PLAN OF CARE DISCUSSED.
[2020-05-05 07:14] LABS: EOSINOPHILS % (MANUAL) 3 % (0-4); LYMPHOCYTES % (MANUAL) 10 % (20-46); MONOCYTES % (MANUAL) 5 % (5-12)
--- NOTE | 2020-05-05 07:15 | NUR ---
RECEIVED PT FROM MAINSPRING FORMER BRACE END NURSELIBRADO, PT IS AWAKE AND LYING ON THE BED WITH SIDE RAILS UP AND CALL LIGHT, SAFETY PRECAUTION IN PLACE, WITHIN EACH, PT HAS A SCHUMACHER CATHETER IN PLACE WITH 200ML URINE IN SCHUMACHER BAG, PT HAS A RT SUBCLAVIAN DIALYSIS ACCESS, IV LINE NOTED ON THE TALON MIDLINE WITH NS ON TKO, PT IS ON O4 2L NC, KENYAN SPEAKING AND NO SIGN OF DISTRESS NOTED. WILL CONTINUE TO MONITOR PT.
[2020-05-05 08:00] VITALS: BP 141/64
[2020-05-05] MEDS: ALBUTEROL SULFATE/IPRATROPIU 3 ML SOL IH SCH ×5 (08:00→23:00)
[2020-05-05] MEDS: FUROSEMIDE 40 MG TAB PO SCH (10:14)
[2020-05-05] MEDS: LABETALOL 100 MG TAB PO SCH ×3 (10:14→16:11)
[2020-05-05] MEDS: DOCUSATE 100 MG/10 ML UDC GT PRN (10:14)
[2020-05-05] MEDS: amLODIPine 5 MG TAB NG SCH (10:15)
[2020-05-05] MEDS: TAMSULOSIN 0.4 MG CAP PO SCH (10:17)
[2020-05-05] MEDS: SEVELAMER CARBONATE 800 MG TAB PO SCH ×3 (10:17→16:11)
--- NOTE | 2020-05-05 10:17 | NUR ---
PT WAS GIVEN THE SCHEDULED AM MEDICATIONS NOW, PARAMETERS CHECKED AND WILL CONTINUE TO MONITOR.
[2020-05-05 12:00] VITALS: BP 136/57
--- NOTE | 2020-05-05 12:32 | NUR ---
PT WAS GIVEN THE SCHEDULED MEDICATIONS NOW, TOLERATED AND WILL MONITOR PT.
[2020-05-05] MEDS ORDERED: AMLO10TA PO (14:34)
[2020-05-05] MEDS ORDERED: METO-251 PO (14:34)
[2020-05-05] MEDS ORDERED: ASPI-1822 PO (14:34)
[2020-05-05 16:00] VITALS: BP 143/68
[2020-05-05] MEDS: INSULIN LISPRO SLIDING SCALE 100 UNITS/ML VIAL SUBQ PRN ×2 (16:10→21:13)
--- NOTE | 2020-05-05 16:11 | NUR ---
PT WAS GIVEN INSULIN 4 UNITS ON THE LEFT UA, SCHEDULED MEDICATIONS WERE GIVEN WELL, TOLERATED, PARAMETERS CHECKED, WILL MONITOR PT.
--- NOTE | 2020-05-05 17:40 | NUR ---
PT'S SON BERNARDO CALLED STATED THAT THE PORTABLE OXYGEN AND CONCENTRATOR WAS JUST PICKED UP TODAY BY AN OXYGEN COMPANY FROM [facility]. SPOKE WITH DR. ACUNA, NOTIFIED WITH THE OXYGEN SITUATION. HOME OXYGEN ORDERED FOR SOCIAL SERVICE. JASPAL DIAZ ASSIGNED MADE AWARE.
--- NOTE | 2020-05-05 18:23 | NUR ---
PT WAS GIVEN THE SCHEDULED MEDICATION NOW. WILL CONTINUE TO MONITOR PT.
--- NOTE | 2020-05-05 19:20 | NUR ---
ENDORSED PT TO SHAFT REPAIRER NURSELIBRADO FOR CONTINUITY OF CARE.
--- NOTE | 2020-05-05 19:25 | NUR ---
RECEIVED BEDSIDE REPORT FROM DAY SHIFT NURSE FOR CONTINUITY OF CARE. PT IS AWAKE AND ALERT, LAYING IN SEMI FOWLERS POSITION. ON 4L O2 NC WITH BREATHING UNLABORED. SR ON TELE MONITORING. SCHUMACHER IN PLACE. SKIN IS WARM, DRY, AND INTACT. IV IS IN THE RIGHT UA MIDLINE DOUBLE LUMEN TKO. PT IS STABLE AT THIS TIME. FALL PRECAUTIONS IN PLACE R/T GENERALIZED WEAKNESS. STANDARD PRECAUTIONS IN PLACE, PT IS COVID NEGATIVE. PLAN OF CARE DISCUSSED.
[2020-05-05 20:00] VITALS: BP 154/80
[2020-05-05] MEDS: INSULIN LANTUS 100 UNITS/ML 10 ML VIAL SUBQ SCH (21:16)
--- NOTE | 2020-05-05 21:30 | NUR ---
PT HAD A BM, BROWN AND SOLID IN CONSISTENCY. PT WAS CHANGED AND REPOSITIONED. NEW CHUCKS NOW IN PLACE. WARM BLANKET WAS PROVIDED REQUESTED. PT IS STABLE.
--- NOTE | 2020-05-05 23:00 | NUR ---
ROUNDED ON PT. HE IS ASLEEP IN SEMI FOWLERS POSITION. IV FLUIDS ARE PATENT AND INFUSING TKO. CHUCKS ARE DRY AND LINENS DO NOT NEED TO BE CHANGED AT THIS TIME. NO RESPIRATORY DISTRESS OR PAIN NOTED.
[2020-05-06] VITALS: BP 143/70
[2020-05-06] MEDS: ALUMINUM HYDROXIDE 64 MG/ML BOTTLE GT SCH ×5 (00:15→17:11)
--- NOTE | 2020-05-06 00:18 | NUR ---
PT REFUSED ALUMINUM HYDROXIDE MEDICATION. EXPLAINED THE IMPORTANCE OF THE MEDICATION AND GAVE EDUCATION. PT VERBALIZED UNDERSTANDING AND STILL REFUSED.
--- NOTE | 2020-05-06 02:30 | NUR ---
PT HAD ANOTHER BM. NURSING PROJECT COORDINATOR AT THE BEDSIDE CHANGING PT. PT WAS GIVEN NEW LINENS. DRY CHUCKS NOW IN PLACE. MORE BLANKETS PROVIDED FOR COMFORT. IV IS STILL PATENT AND FLUSHING. WATER WAS ALSO PROVIDED.
[2020-05-06] MEDS: ALBUTEROL SULFATE/IPRATROPIU 3 ML SOL IH SCH ×6 (03:00→23:00)
[2020-05-06 04:00] VITALS: BP 146/68
--- NOTE | 2020-05-06 04:29 | NUR ---
PT IS SLEEPING IN SEMI FOWLERS POSITION. BLANKETS ARE IN PLACE. CHEST RISE AND FALL IS SYMMETRICAL. NO DISTRESS NOTED. IV IS PATENT AND FLUSHING. BED IS IN THE LOWEST POSITION. WILL CONTINUE TO MONITOR.
[2020-05-06 06:28] LABS: HEMATOCRIT 27.6 % (36-52); HEMOGLOBIN 9.1 g/dL (12.0-18.0); MEAN CORPUSCULAR HEMOGLOBIN 28 pg (27-31); MEAN CORPUSCULAR HGB CONC 33 g/dL (33-37); MEAN CORPUSCULAR VOLUME 83.8 fL (80-94); PLATELET COUNT (AUTO) 367 K/uL (140-450); RED CELL DISTRIBUTION WIDTH 15.5 % (11.6-13.7)
[2020-05-06] MEDS: PIPERACILLIN/TAZOBACTAM 2.25 GM in DEXTROSE 5% 50 ML IV SCH ×3 (06:54→21:00)
--- NOTE | 2020-05-06 06:57 | NUR ---
PT REFUSED ALUMINUM HYDROXIDE MED. AFTER EDUCATION AND PT VERBALIZING UNDERSTANDING HE STILL CONTINUED TO DENY WANTING TO TAKE THE MEDICATION.
--- NOTE | 2020-05-06 07:10 | NUR ---
ENDORSED PT TO DAY SHIFT NURSE FOR CONTINUITY OF CARE. PT IS STABLE AT THIS TIME. PLAN OF CARE DISCUSSED.
[2020-05-06 07:26] LABS: CARBON DIOXIDE 21.2 mmol/L (21-32)
[2020-05-06] MEDS: BLOOD GLUCOSE MONITORING 1 DEV DEV FS SCH ×4 (07:43→22:00)
[2020-05-06 08:00] VITALS: BP 155/68
--- NOTE | 2020-05-06 08:04 | NUR ---
FRANCISCO J ELEMENTARY SCHOOL TUTOR CALLED 2X TO NOTIFY PATIENT HAVE ORDER FOR HD, NO ANSWER, LEFT A DETAIL MESSAGE AND CALL BACK #.
[2020-05-06 08:29] LABS: ANION GAP 17.8 (8-16)
[2020-05-06] MEDS: TAMSULOSIN 0.4 MG CAP PO SCH (08:29)
[2020-05-06] MEDS: FUROSEMIDE 40 MG TAB PO SCH (08:29)
[2020-05-06] MEDS: SEVELAMER CARBONATE 800 MG TAB PO SCH ×3 (08:29→17:11)
[2020-05-06 08:31] LABS: WHITE BLOOD COUNT (AUTO) 31.9 K/uL (4.8-10.8)
[2020-05-06 08:32] LABS: LYMPHOCYTES % (MANUAL) 5 % (20-46); MONOCYTES % (MANUAL) 2 % (5-12)
--- NOTE | 2020-05-06 08:35 | NUR ---
ADMINISTERED SCHEDULED AM MEDS, HOLD BP MEDS FOR NOW DUE TO HD DIALYSIS FOR TODAY, MEDS EDUCATION PROVIDED, REINFORCEMENT NEEDED DUE TO LANGUAGE BARRIER AND LACK OF MOTIVATION, PATIENT SWALLOWED MEDS WELL. PATIENT AWAKE AND RESTING ON BED AT THIS TIME. NO SIGNS OF DISTRESS NOTED. SAFETY MEASURES IN PLACE. BED IN LOW POSITION, CALL LIGHT WITHIN REACH, DEMONSTRATE TO PATIENT ON HOW TO USE THE CALL LIGHT FOR ASSISTANCE AND INSTRUCT PATIENT TO USE THE CALL LIGHT FOR ANY ASSISTANCE, BED LOCKED.
--- NOTE | 2020-05-06 08:39 | NUR ---
RECEIVED CRITICAL LAB WBC 31.9, DR DANG MADE AWARE. PATIENT IS ON ZOSYN Q8H.
--- NOTE | 2020-05-06 08:40 | NUR ---
RECEIVED CRITICAL LAB FOR BUN 74, CR 7, POTASSIUM 6, DR BRADLEY MADE AWARE, HD ORDER FOR TODAY, AWAITING FOR POWDER SHOVELER TO ARRIVE.
[2020-05-06] MEDS: amLODIPine 5 MG TAB NG SCH (09:00)
[2020-05-06] MEDS: LABETALOL 100 MG TAB PO SCH ×3 (09:00→17:00)
--- NOTE | 2020-05-06 11:10 | NUR ---
BLOOD GLUCOSE 90, NO COVERAGE. ADMINISTERED SCHEDULED MED, PATIENT TOLERATED WELL, COMPLAINED THAT HE DOESN'T LIKE THE TASTE. PATIENT IS RESTING ON BED, NO SIGNS OF ACUTE DISTRESS NOTED. SAFETY MEASURES IN PLACE.
--- NOTE | 2020-05-06 11:50 | NUR ---
FOLLOWED UP FRANCISCO J SEISMOLOGY TECHNICAL OFFICER REGARD OF HD TODAY, FRANCISCO J WAS AWARE AND SAID HER STAFF MILES IS DOING DIALYSIS FOR ANOTHER PATIENT, ONCE SHE'S DONE, SHE WILL START ON PATIENT.
[2020-05-06 12:00] VITALS: BP 142/61
--- NOTE | 2020-05-06 14:04 | NUR ---
SCHEDULED ZOSYN AND SEVELAMER CARBONATE GIVEN.
[2020-05-06] MEDS ORDERED: VANCOMYCIN PER PHARMACY MC PRN (14:10)
--- NOTE | 2020-05-06 15:14 | NUR ---
10,000 UNIT HEPARIN PROVIDED TO ROOM SERVICE WAITER SARA TO FLUSH PORTS. PATIENT IS STILL IN DIALYSIS.
[2020-05-06 16:00] VITALS: BP 115/68
--- NOTE | 2020-05-06 16:15 | NUR ---
MIDLINE REMOVED PER DR DANG ORDER, CANNULA INTACT AND COMPLETED, NO BLEEDING ON SITE. INSERTED L HAND 22G, CONTINUE NS 5 ML/HR TKO, PATIENT TOLERATED WELL. PATIENT IS STILL IN DIALYSIS. NO SIGNS OF ACUTE DISTRESS NOTED. SAFETY MEASURES IN PLACE.
[2020-05-06] MEDS: INSULIN LISPRO SLIDING SCALE 100 UNITS/ML VIAL SUBQ PRN (16:23)
--- NOTE | 2020-05-06 16:27 | NUR ---
URINE SAMPLE COLLECTED AND DELIVERED TO LAB. PATIENT IS STILL IN DIALYSIS. HEATING AND VENTILATING WORKER MILES IS BY BEDSIDE. NO SIGNS OF DISTRESS NOTED. SAFETY MEASURES IN PLACE.
--- NOTE | 2020-05-06 17:12 | NUR ---
DIALYSIS COMPLETED; REMOVED 3L. BP 144/69 PULSE 82, SPO2 97% ON 4 LPM VIA NC. ADMINISTERED SCHEDULED MEDS AND AM BP MEDS, PATIENT TOLERATED WELL. SAFETY MEASURES IN PLACE.
[2020-05-06 20:00] VITALS: BP 137/73
--- NOTE | 2020-05-06 20:30 | NUR ---
REPORT RECIEVED FROM HEIDE . PT IS AAOX 2 TO 3 , NID , 02 SAT WNL . W/ O2 AT 4LPM /NC . IV SITE INTACT AND PATENT . PER NURSE HEIDE PT IS SUPPOSED TO BE FOR DISCHARGE BUT CANCELLED DUE TO HIGH SERUM WBC - FOR STOOL C DIFF . SAFETY MEASURES IN PLACE - CALL LIGHT WITHIN REACH . POC DISCUSSED BUT NEEDS REINFORCEMENT DUE TO MENTAL STATUS , W/ FC - DRAINING CLEAR URINE OUTPUT. ON TELE MONITOR . WILL CONT. TO MONITOR .
[2020-05-06] MEDS ORDERED: VANCOMYCIN 750 MG in DEXTROSE 5% 250 ML IV SCH (21:00)
[2020-05-06] MEDS: INSULIN LANTUS 100 UNITS/ML 10 ML VIAL SUBQ SCH (22:00)
[2020-05-07] VITALS: BP 123/59
--- NOTE | 2020-05-07 | NUR ---
MADE4 ROUNDS , NO S/SX OF ACUTE DISTRESS NOTED .
[2020-05-07] MEDS: ALUMINUM HYDROXIDE 64 MG/ML BOTTLE GT SCH ×5 (00:14→23:05)
--- NOTE | 2020-05-07 02:00 | NUR ---
SLEEPING . ON TELE MONITOR
[2020-05-07] MEDS: ALBUTEROL SULFATE/IPRATROPIU 3 ML SOL IH SCH ×5 (03:00→23:00)
[2020-05-07 04:00] VITALS: BP 133/62
[2020-05-07] MEDS: PIPERACILLIN/TAZOBACTAM 2.25 GM in DEXTROSE 5% 50 ML IV SCH ×3 (04:51→20:07)
[2020-05-07] MEDS: BLOOD GLUCOSE MONITORING 1 DEV DEV FS SCH ×4 (06:41→20:12)
--- NOTE | 2020-05-07 07:30 | NUR ---
RECEIVED BEDSIDE REPORT FROM DBA DEVELOPER NURSE FOR CONTINUITY OF CARE. PT IS AWAKE AND ALERT, LAYING IN SEMI FOWLERS POSITION. ON 4L O2 NC WITH BREATHING UNLABORED. SR ON TELE MONITORING. SCHUMACHER IN PLACE. SKIN IS WARM, DRY, AND INTACT. IV IS ON THE LAC 20G INTACT AND PATENT. PT IS STABLE AT THIS TIME. FALL PRECAUTIONS IN PLACE R/T GENERALIZED WEAKNESS. STANDARD PRECAUTIONS IN PLACE, PT IS COVID NEGATIVE. PLAN OF CARE DISCUSSED. CALL LIGHT WITHIN REACH. WILL CONTINUE TO MONITOR.
[2020-05-07 08:00] VITALS: BP 114/82
[2020-05-07] MEDS: SEVELAMER CARBONATE 800 MG TAB PO SCH ×3 (10:21→18:07)
[2020-05-07] MEDS: TAMSULOSIN 0.4 MG CAP PO SCH (10:21)
[2020-05-07] MEDS: FUROSEMIDE 40 MG TAB PO SCH (10:23)
[2020-05-07] MEDS: LABETALOL 100 MG TAB PO SCH ×3 (10:24→18:07)
[2020-05-07] MEDS: amLODIPine 5 MG TAB NG SCH (10:24)
--- NOTE | 2020-05-07 10:30 | NUR ---
ALL SCHEDULED MEDS GIVEN. PT IS STABLE. NO DISTRESS NOTED. WILL CONTINUE TO MONITOR.
[2020-05-07 11:46] LABS: BASOPHILS # (AUTO) 0.1 K/uL (0.00-0.22); BASOPHILS % (AUTO) 0.2 % (0.0-2.0); EOSINOPHILS # (AUTO) 0.5 K/uL (0-0.4); EOSINOPHILS % (AUTO) 1.9 % (0.0-4.0); HEMATOCRIT 30.6 % (36-52); HEMOGLOBIN 9.9 g/dL (12.0-18.0); LYMPHOCYTES # (AUTO) 2.2 K/uL (2.0-11.5); MEAN CORPUSCULAR HEMOGLOBIN 27 pg (27-31); MEAN CORPUSCULAR HGB CONC 32 g/dL (33-37); MEAN CORPUSCULAR VOLUME 84.1 fL (80-94); MONOCYTES # (AUTO) 1.2 K/uL (0.8-1.0); MONOCYTES % (AUTO) 4.5 % (1.7-9.3); NEUTROPHILS # (AUTO) 23.9 K/uL (1.8-7.7); NEUTROPHILS % (AUTO) 85.4 % (42.2-75.2); PLATELET COUNT (AUTO) 372 K/uL (140-450); RED BLOOD CELL COUNT(AUTO) 3.64 MIL/uL (4.20-6.10); RED CELL DISTRIBUTION WIDTH 15.4 % (11.6-13.7)
[2020-05-07 12:00] VITALS: BP 121/61
--- NOTE | 2020-05-07 12:00 | NUR ---
ALL SCHEDULED MEDS GIVEN. PT IS STABLE. NO DISTRESS NOTED. WILL CONTINUE TO MONITOR.
--- NOTE | 2020-05-07 12:10 | NUR ---
BLOOD SUGAR CHECK IS 76. NO INSULIN COVERAGE NEEDED. PT IS STABLE NO DISTRESS NOTED.
[2020-05-07 12:41] LABS: ANION GAP 17.1 (8-16); CARBON DIOXIDE 24.5 mmol/L (21-32); POTASSIUM 4.6 mmol/L (3.5-5.1)
--- NOTE | 2020-05-07 12:46 | NUR ---
05/07/20 RD FOLLOW UP COMPLETED PLEASE REFER TO NUTRITION ASSESSMENT UNDER CARE ACTIVITY FOR ESTIMATED NUTRITIONAL NEEDS. 1. RECOMMEND MECHANICAL SOFT, RENAL CCHO DIET TOLERATED 2. RD WILL FOLLOW UP WITH RENAL DIET EDUCATION 3. RD TO FOLLOW-UP 3-5 DAYS, MODERATE RISK RADHA HAMILTON, RD
--- NOTE | 2020-05-07 15:10 | NUR ---
ASSIST MANAGER STRATEGIC ALLIANCES WITH CHANGING PATIENT. KEPT CLEAN AND DRY. PT IS STABLE. NO RESPIRATORY DISTRESS NOTED.
[2020-05-07 16:00] VITALS: BP 97/55
--- NOTE | 2020-05-07 18:15 | NUR ---
ALL SCHEDULED MEDS GIVEN. PT IS STABLE. NO DISTRESS NOTED. COLLECTED C DIFF SPECIMEN. WILL CONTINUE TO MONITOR.
--- NOTE | 2020-05-07 18:51 | NUR ---
BLOOD SUGAR CHECK IS 76. NO INSULIN COVERAGE NEEDED. PT IS STABLE NO DISTRESS NOTED. Addendum: 05/07/20 at 1852 by Jose R Menon RN RN 92* IS BLOOD SUGAR Addendum: 05/07/20 at 1852 by Jose R Menon RN RN TIMESTAMP IS 1630*
--- NOTE | 2020-05-07 19:40 | NUR ---
RECEIVED BEDSIDE ENDORSEMENT FROM AM SHIFT RN. PT IS LYING IN BED, ON 4L NASAL CANNULA, NO SOB, NO DISTRESS, W/INDWELLING SCHUMACHER CATH IN PLACE, SAFETY MEASURES IN PLACE, PLAN OF CARE DISCUSSED, CALL LIGHT WITHIN REACH.
[2020-05-07 20:00] VITALS: BP 119/44
[2020-05-07] MEDS: INSULIN LANTUS 100 UNITS/ML 10 ML VIAL SUBQ SCH (20:13)
--- NOTE | 2020-05-07 20:32 | NUR ---
DUE MEDS GIVEN ORDERED, TOLERATED WELL, BS 101, LANTUS NOT GIVEN. PERINEAL CARE RENDERED, KEPT COMFORTABLE AND WARM, CALL LIGHT WITHIN REACH.
--- NOTE | 2020-05-07 23:13 | NUR ---
DUE MED GIVEN ORDERED, TOLERATED WELL, CALL LIGHT WITHIN REACH.
--- NOTE | 2020-05-07 23:30 | NUR ---
PUBLIC IMPROVEMENT INSPECTOR CLEANED PT, I COLLECTED STOOL FOR C-DIFF SAMPLE, KEPT WARM AND COMFORTABLE, CALL LIGHT WITHIN REACH.
--- NOTE | 2020-05-08 01:30 | NUR ---
ASLEEP, RESPIRATION EVEN AND UNLABORED, CALL LIGHT WITHIN REACH.
[2020-05-08] MEDS: ALBUTEROL SULFATE/IPRATROPIU 3 ML SOL IH SCH ×5 (03:00→19:00)
[2020-05-08 04:00] VITALS: BP 136/55
--- NOTE | 2020-05-08 04:00 | NUR ---
V/S TAKEN AND RECORDED, KEPT CLEAN AND DRY, CALL LIGHT WITHIN REACH.
[2020-05-08] MEDS: PIPERACILLIN/TAZOBACTAM 2.25 GM in DEXTROSE 5% 50 ML IV SCH (05:36)
[2020-05-08] MEDS: ALUMINUM HYDROXIDE 64 MG/ML BOTTLE GT SCH ×4 (05:36→23:35)
--- NOTE | 2020-05-08 05:48 | NUR ---
DUE MEDS GIVEN ORDERED, NO A/R NOTED, CALL LIGHT WITHIN REACH.
[2020-05-08] MEDS: BLOOD GLUCOSE MONITORING 1 DEV DEV FS SCH ×4 (06:31→20:25)
[2020-05-08 06:32] LABS: BASOPHILS # (AUTO) 0.1 K/uL (0.00-0.22); BASOPHILS % (AUTO) 0.4 % (0.0-2.0); EOSINOPHILS # (AUTO) 0.6 K/uL (0-0.4); EOSINOPHILS % (AUTO) 2.7 % (0.0-4.0); HEMOGLOBIN 8.7 g/dL (12.0-18.0); LYMPHOCYTES # (AUTO) 2.4 K/uL (2.0-11.5); LYMPHOCYTES % (AUTO) 10.6 % (20.5-51.1); MEAN CORPUSCULAR HEMOGLOBIN 27 pg (27-31); MEAN CORPUSCULAR HGB CONC 32 g/dL (33-37); MEAN CORPUSCULAR VOLUME 85.1 fL (80-94); MONOCYTES # (AUTO) 0.9 K/uL (0.8-1.0); NEUTROPHILS # (AUTO) 18.6 K/uL (1.8-7.7); NEUTROPHILS % (AUTO) 82.3 % (42.2-75.2); PLATELET COUNT (AUTO) 337 K/uL (140-450); RED BLOOD CELL COUNT(AUTO) 3.18 MIL/uL (4.20-6.10); RED CELL DISTRIBUTION WIDTH 15.5 % (11.6-13.7); WHITE BLOOD COUNT (AUTO) 22.6 K/uL (4.8-10.8)
[2020-05-08 06:52] LABS: ANION GAP 16.2 (8-16); CARBON DIOXIDE 23.5 mmol/L (21-32); POTASSIUM 4.7 mmol/L (3.5-5.1)
[2020-05-08 06:55] LABS: CREATININE 6.8 mg/dL (0.6-1.3)
--- NOTE | 2020-05-08 07:39 | NUR ---
PT STABLE, BEDSIDE ENDORSEMENT GIVEN TO AM SHIFT RN FOR CONTINUITY OF CARE.
--- NOTE | 2020-05-08 07:39 | NUR ---
RECEIVED PATIENT FROM NIGHT NURSE. PATIENT IN BED SLEEPING, CHEST NOTED RISING. RESP EVEN AND UNLABORED ON 4LNC. NO ACUTE S/S DISTRESS. LH 22G TKO. HOB ELEVATED. SAFETY MEASURES IN PLACE. WILL CONTINUE TO MONITOR.
[2020-05-08 08:00] VITALS: BP 154/57
[2020-05-08] MEDS: amLODIPine 5 MG TAB NG SCH (09:00)
[2020-05-08] MEDS: FUROSEMIDE 40 MG TAB PO SCH (09:00)
[2020-05-08] MEDS: LABETALOL 100 MG TAB PO SCH ×4 (09:00→17:01)
[2020-05-08] MEDS: TAMSULOSIN 0.4 MG CAP PO SCH (09:00)
--- NOTE | 2020-05-08 09:25 | NUR ---
PATIENT IN BED AWAKE, ALERT, ORIENTED X4. RESP EVEN AND UNLABORED ON 4L NC. PATIENT DENIED OF PAIN AT THIS TIME. LH 22G INTACT AND PATENT TKO WITH NS. RIGHT UPPER CHEST TUNNEL CATH FOR HD. HD STARTED. MORNING BP MEDICATIONS HELD PER DIALYSIS NURSE. CALL LIGHT WITHIN REACH. WILL CONTINUE TO MONITOR.
[2020-05-08] MEDS: SEVELAMER CARBONATE 800 MG TAB PO SCH ×3 (10:13→17:01)
[2020-05-08] MEDS ORDERED: VANCOMYCIN 1,000 MG in DEXTROSE 5% 250 ML IV SCH (12:00)
[2020-05-08] MEDS: INSULIN LISPRO SLIDING SCALE 100 UNITS/ML VIAL SUBQ PRN (12:26)
--- NOTE | 2020-05-08 12:27 | NUR ---
HD COMPLETE. 2.3L OUTPUT. PATIENT IN BED RESTING. TRANDATE HELD D/T POST DIALYSIS WITH BP 131/65 HR 67. ROUTINE MEDICATIONS GIVEN. BLOOD SUGAR 169, INSULIN PROVIDED PER SLIDING SCALE. NO NOTED DISTRESS. CALL LIGHT WITHIN REACH. WILL CONTINUE TO MONITOR.
--- NOTE | 2020-05-08 14:15 | NUR ---
PATIENT IN BED SLEEPING, CHEST NOTED RISING. NO ACUTE S/S DISTRESS AT THIS TIME. CALL LIGHT WITHIN REACH. WILL CONTINUE TO MONITOR.
[2020-05-08 16:00] VITALS: BP 145/51
--- NOTE | 2020-05-08 17:20 | NUR ---
BLOOD SUGAR 119. NO INSULIN COVERAGE PER SLIDING SCALE. ROUTINE MEDICATIONS GIVEN. PATIENT TOLERATED WELL. NO NOTED ACUTE S/S DISTRESS. CALL LIGHT WITHIN REACH. WILL CONTINUE TO MONITOR.
--- NOTE | 2020-05-08 19:15 | NUR ---
ENDORSED PATIENT TO NIGHT NURSE. PATIENT IN STABLE CONDITION.
--- NOTE | 2020-05-08 19:16 | NUR ---
RECD. RESTING IN BED, AWAKE, A/OX3. RESPIRATION EVEN AND UNLABORED. ON 02 AT 4 LITERS VIA N/C. IV SALINE LOCK INFUSING AT TKO, LEFT HAND G22. RIGHT IJ DIALYSIS CATH IN PLACED. ON CONTACT PRECAUTION OBSERVE FOR C-DIFF. F/C PATENT DRAINING CLEAR YELLOW URINE. SAFETY MEASURES ENFORCED. BED IN THE LOWEST POSITION. SIDE RAILS UP. MEDICATIONS AND CARE FOR THE SHIFT DISCUSSED. VERBALIZED UNDERSTANDING. DENIES PAIN 0/10.
[2020-05-08 20:00] VITALS: BP_SYST 143; BP_SYST 152; BP_DIAS 70; BP_DIAS 76
[2020-05-08] MEDS: INSULIN LANTUS 100 UNITS/ML 10 ML VIAL SUBQ SCH (20:27)
--- NOTE | 2020-05-08 20:27 | NUR ---
DUE MEDICATIONS FOR THE NIGHT GIVEN. ATE 100% OF SNACK.
--- NOTE | 2020-05-08 21:13 | NUR ---
Patient's Plan of Care was discussed and reviewed with CREDIT OPERATIONS PROCESSOR: KAROL MEJIA
--- NOTE | 2020-05-08 22:15 | NUR ---
DR. NEGRETE CAME TO CHECKED PATIENT, WILL FOLLOW UP WITH ANY NEW ORDERS.
[2020-05-08] MEDS ORDERED: WATER STERILE 20 ML MC ONE (23:05)
[2020-05-08] MEDS: VANCOMYCIN 500 MG VIAL PO SCH (23:34)
--- NOTE | 2020-05-08 23:35 | NUR ---
MEDICATED WITH VANCOMYCIN [address] NEGRETE ORDER.
--- NOTE | 2020-05-09 02:00 | NUR ---
SLEEPING COMFORTABLY IN BED, NO SOB NOTED.
[2020-05-09 04:00] VITALS: BP 151/69
--- NOTE | 2020-05-09 04:00 | NUR ---
NO DIARRHEA NOTED.
[2020-05-09] MEDS: BLOOD GLUCOSE MONITORING 1 DEV DEV FS SCH ×4 (05:34→20:03)
[2020-05-09] MEDS: ALUMINUM HYDROXIDE 64 MG/ML BOTTLE GT SCH (05:44)
[2020-05-09] MEDS: VANCOMYCIN 500 MG VIAL PO SCH ×3 (05:44→17:50)
--- NOTE | 2020-05-09 05:44 | NUR ---
DUE AM MEDICATIONS GIVEN. BACK TO SLEEP AGAIN.
[2020-05-09 06:38] LABS: BASOPHILS # (AUTO) 0.1 K/uL (0.00-0.22); BASOPHILS % (AUTO) 0.9 % (0.0-2.0); EOSINOPHILS # (AUTO) 0.5 K/uL (0-0.4); EOSINOPHILS % (AUTO) 4.2 % (0.0-4.0); LYMPHOCYTES # (AUTO) 1.9 K/uL (2.0-11.5); LYMPHOCYTES % (AUTO) 15.1 % (20.5-51.1); MEAN CORPUSCULAR HEMOGLOBIN 28 pg (27-31); MEAN CORPUSCULAR HGB CONC 33 g/dL (33-37); MEAN CORPUSCULAR VOLUME 83.6 fL (80-94); MONOCYTES # (AUTO) 0.7 K/uL (0.8-1.0); MONOCYTES % (AUTO) 5.5 % (1.7-9.3); NEUTROPHILS # (AUTO) 9.5 K/uL (1.8-7.7); NEUTROPHILS % (AUTO) 74.3 % (42.2-75.2); PLATELET COUNT (AUTO) 324 K/uL (140-450); RED BLOOD CELL COUNT(AUTO) 3.23 MIL/uL (4.20-6.10); RED CELL DISTRIBUTION WIDTH 15.3 % (11.6-13.7); WHITE BLOOD COUNT (AUTO) 12.8 K/uL (4.8-10.8)
[2020-05-09] MEDS: ALBUTEROL SULFATE/IPRATROPIU 3 ML SOL IH SCH ×5 (07:08→23:43)
[2020-05-09 07:19] LABS: ANION GAP 14.1 (8-16); POTASSIUM 4.1 mmol/L (3.5-5.1)
--- NOTE | 2020-05-09 07:20 | NUR ---
ENDORSED TO AM SHIFT NURSE FOR CONTINUITY OF CARE.
--- NOTE | 2020-05-09 07:21 | NUR ---
RECEIVED PATIENT RESTING IN BED, AWAKE, A/OX3, CHINESE SPEAKING. RESPIRATION EVEN AND UNLABORED. ON 02 AT 4 LITERS VIA NC. IV INFUSING AT TKO, LEFT HAND G22. RIGHT IJ DIALYSIS CATH IN PLACE. ON CONTACT PRECAUTION OBSERVE FOR C-DIFF. SCHUMACHER CATHETER PATENT DRAINING CLEAR YELLOW URINE. SAFETY MEASURES ENFORCED. BED IN THE LOWEST POSITION. SIDE RAILS UP. MEDICATIONS AND CARE FOR THE SHIFT DISCUSSED. PATIENT VERBALIZED UNDERSTANDING. DENIES PAIN 0/10.
[2020-05-09 08:00] VITALS: BP 136/63
[2020-05-09 08:46] LABS: CREATININE 5.4 mg/dL (0.6-1.3)
[2020-05-09] MEDS: TAMSULOSIN 0.4 MG CAP PO SCH (09:31)
[2020-05-09] MEDS: LABETALOL 100 MG TAB PO SCH ×3 (09:31→17:49)
[2020-05-09] MEDS: amLODIPine 5 MG TAB NG SCH (09:31)
[2020-05-09] MEDS: SEVELAMER CARBONATE 800 MG TAB PO SCH ×3 (09:32→17:49)
[2020-05-09] MEDS: FUROSEMIDE 40 MG TAB PO SCH (09:32)
[2020-05-09] MEDS: PIPERACILLIN/TAZOBACTAM 3.375 GM in DEXTROSE 5% 50 ML IV SCH ×2 (09:32→20:12)
--- NOTE | 2020-05-09 09:40 | NUR ---
ORDERED MEDICATIONS GIVEN. PATIENT STATED IN YI THAT HE COULD NOT HEAR EXPLANATION OF MEDS, SAYING HE'S GETTING TOO MANY MEDICATIONS. RN WROTE DOWN MEDICATIONS AND EXPLANATION, PATIENT STATED THAT HE COULD NOT SEE BECAUSE HE NEEDED HIS GLASSES. PATIENT EVENTUALLY AGREED TO TAKE MEDICATIONS AFTER FURTHER EXPLANATIONS. PATIENT TOLERATED THEM. DR. DANG IN TO SEE PATIENT. WILL CONTINUE TO MONITOR PATIENT.
--- NOTE | 2020-05-09 12:22 | NUR ---
BLOOD SUGAR 119. NO COVERAGE NEEDED. SCHEDULED MEDICATIONS GIVEN. PATIENT TOLERATED THEM. NO COMPLAINTS AT THIS TIME. CELL PHONE CHARGED AND TURNED ON FOR PATIENT AT BEDSIDE. CALL LIGHT WITHIN REACH, WILL CONTINUE TO MONITOR PATIENT.
--- NOTE | 2020-05-09 15:00 | NUR ---
PATIENT NOW ON 2L O2 VIA NC. WILL CONTINUE TO MONITOR PATIENT.
--- NOTE | 2020-05-09 15:30 | NUR ---
PATIENT RESTING IN BED SLEEPING COMFORTABLY, NO COMPLAINTS AT THIS TIME, DENIES PAIN. CALL LIGHT WITHIN REACH, CONTACT PRECAUTIONS IN PLACE, WILL CONTINUE TO MONITOR PATIENT.
[2020-05-09 16:00] VITALS: BP 133/62
--- NOTE | 2020-05-09 16:30 | NUR ---
O2 SATURATION ON 2L O2 VIA NC IS 93-94%. NO S/S OF DISTRESS OR SOB NOTED. WILL CONTINUE TO MONITOR PATIENT.
[2020-05-09] MEDS: ALUMINUM HYDROXIDE 64 MG/ML BOTTLE PO SCH (17:49)
--- NOTE | 2020-05-09 17:58 | NUR ---
ORDERED MEDICATIONS GIVEN. PATIENT TOLERATED THEM. BLOOD SUGAR 125, NO COVERAGE NEEDED. SAFETY AND CONTACT PRECAUTIONS IN PLACE, CALL LIGHT WITHIN REACH, WILL CONTINUE TO MONITOR PATIENT.
--- NOTE | 2020-05-09 19:20 | NUR ---
REPORT GIVEN TO TRASH TRUCK DRIVER NURSE AT BEDSIDE FOR CONTINUITY OF CARE. PATIENT IN STABLE CONDITION.
--- NOTE | 2020-05-09 19:21 | NUR ---
RECEIVED REPORT FROM ANGEL RN BETSY. PT AOX3 ON 2L NC, NO S/S RESPIRATORY DISTRESS. NO C/O PAIN AT THIS TIME. IV SITE L HAND 22G PATENT INTACT, INFUSING TKO. SCHUMACHER CATH IN PLACE, DRAINING YELLOW URINE. HAS RIJ DIALYSIS ACCESS. SAFETY MEASURES IN PLACE. CALL LIGHT WITHIN REACH. WILL CONTINUE TO MONITOR
[2020-05-09 20:00] VITALS: BP 148/66
[2020-05-09] MEDS: INSULIN LANTUS 100 UNITS/ML 10 ML VIAL SUBQ SCH (20:09)
--- NOTE | 2020-05-09 20:16 | NUR ---
ADMINISTERED SCHEDULED MEDS, TOLERATED WELL. NO DISTRESS NOTED. WILL CONTINUE TO MONITOR
[2020-05-10] MEDS: ALUMINUM HYDROXIDE 64 MG/ML BOTTLE PO SCH ×5 (00:13→23:32)
[2020-05-10] MEDS: VANCOMYCIN 500 MG VIAL PO SCH ×5 (00:14→23:33)
--- NOTE | 2020-05-10 02:22 | NUR ---
PT ASLEEP IN BED. RESPIRATIONS EVEN UNLABORED. NO S/S ACUTE DISTRESS NOTED. WILL CONTINUE TO MONITOR
[2020-05-10] MEDS: ALBUTEROL SULFATE/IPRATROPIU 3 ML SOL IH SCH ×6 (03:00→22:01)
[2020-05-10 04:00] VITALS: BP 143/57
--- NOTE | 2020-05-10 05:25 | NUR ---
SCHEDULED MEDS GIVEN, TOLERATED WELL. NO DISTRESS NOTED. WILL CONTINUE TO MONITOR
[2020-05-10] MEDS: BLOOD GLUCOSE MONITORING 1 DEV DEV FS SCH ×4 (06:08→20:04)
[2020-05-10 06:52] LABS: BASOPHILS # (AUTO) 0.1 K/uL (0.00-0.22); BASOPHILS % (AUTO) 0.7 % (0.0-2.0); EOSINOPHILS # (AUTO) 0.4 K/uL (0-0.4); EOSINOPHILS % (AUTO) 3.4 % (0.0-4.0); HEMATOCRIT 27.3 % (36-52); HEMOGLOBIN 8.9 g/dL (12.0-18.0); LYMPHOCYTES # (AUTO) 1.9 K/uL (2.0-11.5); LYMPHOCYTES % (AUTO) 14.6 % (20.5-51.1); MEAN CORPUSCULAR HEMOGLOBIN 27 pg (27-31); MEAN CORPUSCULAR HGB CONC 33 g/dL (33-37); MEAN CORPUSCULAR VOLUME 83.7 fL (80-94); MONOCYTES # (AUTO) 0.7 K/uL (0.8-1.0); MONOCYTES % (AUTO) 5.3 % (1.7-9.3); NEUTROPHILS # (AUTO) 9.9 K/uL (1.8-7.7); PLATELET COUNT (AUTO) 292 K/uL (140-450); RED BLOOD CELL COUNT(AUTO) 3.26 MIL/uL (4.20-6.10); RED CELL DISTRIBUTION WIDTH 15.6 % (11.6-13.7)
--- NOTE | 2020-05-10 07:05 | NUR ---
REC'D REPORT FROM [facility] NURSE, PT RESTING, 2LNC, STABLE NO SIGN OF DISTRESS
--- NOTE | 2020-05-10 07:10 | NUR ---
ENDORSED PT TO DAY RN FOR CONTINUITY OF CARE. PT IS IN STABLE CONDITION
[2020-05-10 07:17] LABS: CARBON DIOXIDE 24.5 mmol/L (21-32); POTASSIUM 4.5 mmol/L (3.5-5.1)
[2020-05-10 08:00] VITALS: BP 150/51
[2020-05-10] MEDS: SEVELAMER CARBONATE 800 MG TAB PO SCH ×3 (08:30→17:00)
[2020-05-10] MEDS: LABETALOL 100 MG TAB PO SCH ×4 (08:30→17:00)
[2020-05-10] MEDS: FUROSEMIDE 40 MG TAB PO SCH (08:30)
[2020-05-10] MEDS: amLODIPine 5 MG TAB NG SCH (08:30)
[2020-05-10] MEDS: TAMSULOSIN 0.4 MG CAP PO SCH (08:30)
--- NOTE | 2020-05-10 08:51 | NUR ---
ADMINISTERED MEDICATION PER MD REQUEST, PT TOLERATED PROCEDURE WELL. HELD BB, DECREASED PULSE OF 51
[2020-05-10 08:53] LABS: CREATININE 6.8 mg/dL (0.6-1.3)
[2020-05-10] MEDS ORDERED: PHARMACY COMMENTS MC SCH (09:00)
--- NOTE | 2020-05-10 10:01 | NUR ---
PT SLEEPING, STABLE , NO SIGN OF DISTRESS
--- NOTE | 2020-05-10 14:26 | NUR ---
PER DIALYSIS NURSE, 2.5L REMOVED DURING DIALYSIS
--- NOTE | 2020-05-10 14:40 | NUR ---
PT RESTING, NO SIGN OF DISTRESS, DENIES ANY PAIN AT THIS TIME
[2020-05-10 16:00] VITALS: BP 125/65
--- NOTE | 2020-05-10 19:30 | NUR ---
ENDORSED TO COMPANY DOCTOR NURSE FOR CONTINUITY OF CARE, PT STABLE.
--- NOTE | 2020-05-10 19:31 | NUR ---
RECEIVED REPORT FROM ANGEL GOODWIN. PT AOX3 ON 4L NC, NO S/S RESPIRATORY DISTRESS. NO C/O PAIN AT THIS TIME. IV SITE L HAND 22G PATENT INTACT, S.L. SCHUMACHER CATH IN PLACE, DRAINING YELLOW URINE. HAS [facility]IJ DIALYSIS ACCESS. SAFETY MEASURES IN PLACE. CALL LIGHT WITHIN REACH. WILL CONTINUE TO MONITOR
[2020-05-10 20:00] VITALS: BP 141/68
[2020-05-10] MEDS: INSULIN LANTUS 100 UNITS/ML 10 ML VIAL SUBQ SCH (20:04)
--- NOTE | 2020-05-10 20:10 | NUR ---
BLOOD SUGAR 115, HELD LANTUS. NO INSULIN COVERAGE NEEDED PER SLIDING SCALE. WILL CONTINUE TO MONITOR
--- NOTE | 2020-05-10 20:16 | NUR ---
ADMINISTERED SCHEDULED MEDICATION, TOLERATED WELL. NO DISTRESS NOTED. WILL CONTINUE TO MONITOR
--- NOTE | 2020-05-10 21:59 | NUR ---
PT ASLEEP IN BED. NC IN PLACE. SYMMETRICAL CHEST RISE AND FALL. RESPIRATION EVEN UNLABORED. WILL CONTINUE TO MONITOR
--- NOTE | 2020-05-10 23:37 | NUR ---
SCHEDULED MEDICATIONS GIVEN. PT AWAKE RESTING IN BED. NC IN PLACE. NO DISTRESS NOTED. CALL LIGHT WITHIN REACH. BED IN LOW POSITION. WILL CONTINUE TO MONITOR
[2020-05-11 04:00] VITALS: BP 151/72
--- NOTE | 2020-05-11 05:03 | NUR ---
PT AWAKE IN BED, USING CELLPHONE. NO DISTRESS NOTED. WILL CONTINUE TO MONITOR
[2020-05-11] MEDS: ALUMINUM HYDROXIDE 64 MG/ML BOTTLE PO SCH ×2 (05:26→12:20)
[2020-05-11] MEDS: VANCOMYCIN 500 MG VIAL PO SCH ×2 (05:30→12:20)
--- NOTE | 2020-05-11 05:43 | NUR ---
SCHEDULED MEDS GIVEN. NO DISTRESS NOTED. CALL LIGHT WITHIN REACH. BED IN LOW POSITION. WILL CONTINUE TO MONITOR
[2020-05-11] MEDS: BLOOD GLUCOSE MONITORING 1 DEV DEV FS SCH ×3 (06:06→17:22)
[2020-05-11 06:17] LABS: BASOPHILS # (AUTO) 0.2 K/uL (0.00-0.22); BASOPHILS % (AUTO) 1.1 % (0.0-2.0); EOSINOPHILS # (AUTO) 0.4 K/uL (0-0.4); EOSINOPHILS % (AUTO) 2.7 % (0.0-4.0); HEMATOCRIT 26.9 % (36-52); HEMOGLOBIN 8.9 g/dL (12.0-18.0); LYMPHOCYTES # (AUTO) 1.9 K/uL (2.0-11.5); LYMPHOCYTES % (AUTO) 13.1 % (20.5-51.1); MEAN CORPUSCULAR HEMOGLOBIN 28 pg (27-31); MEAN CORPUSCULAR HGB CONC 33 g/dL (33-37); MEAN CORPUSCULAR VOLUME 83.8 fL (80-94); MONOCYTES # (AUTO) 0.7 K/uL (0.8-1.0); MONOCYTES % (AUTO) 5.2 % (1.7-9.3); NEUTROPHILS # (AUTO) 11.1 K/uL (1.8-7.7); NEUTROPHILS % (AUTO) 77.9 % (42.2-75.2); PLATELET COUNT (AUTO) 281 K/uL (140-450); RED BLOOD CELL COUNT(AUTO) 3.22 MIL/uL (4.20-6.10); RED CELL DISTRIBUTION WIDTH 15.4 % (11.6-13.7); WHITE BLOOD COUNT (AUTO) 14.2 K/uL (4.8-10.8)
[2020-05-11 06:35] LABS: ANION GAP 16.1 (8-16); CARBON DIOXIDE 25.3 mmol/L (21-32); POTASSIUM 4.4 mmol/L (3.5-5.1)
--- NOTE | 2020-05-11 07:38 | NUR ---
ENDORSED PT TO DAY RN FOR CONTINUITY OF CARE. PT IS IN STABLE CONDITION
--- NOTE | 2020-05-11 07:40 | NUR ---
RECEIVED BEDSIDE ENDORSEMENT FROM NIGHTSMSFT NURSE FOR CONTINUITY OF CARE.
[2020-05-11] MEDS: ALBUTEROL SULFATE/IPRATROPIU 3 ML SOL IH SCH ×3 (07:53→15:00)
[2020-05-11] MEDS: TAMSULOSIN 0.4 MG CAP PO SCH (09:00)
[2020-05-11] MEDS: SEVELAMER CARBONATE 800 MG TAB PO SCH ×3 (09:01→17:35)
[2020-05-11] MEDS: FUROSEMIDE 40 MG TAB PO SCH (09:01)
[2020-05-11] MEDS: amLODIPine 5 MG TAB NG SCH (09:02)
[2020-05-11] MEDS: LABETALOL 100 MG TAB PO SCH ×3 (09:02→17:35)
--- NOTE | 2020-05-11 09:15 | NUR ---
ADMINISTERED PRESCRIBED MEDS PER MD ORDER. PATIENT WAS SLEEPING UPON ENTERING. TOLERATED MEDS WELL. MEDICATION EDUCATION REINFORCEMENT NEEDED DUE TO LANGUAGE BARRIER. BREAKFAST TRAY AT BEDSIDE, ENCOURAGED PATIENT TO EAT. SAFETY MEASURES IN PLACE. WILL CONTINUE TO MONITOR.
[2020-05-11] MEDS ORDERED: VANC125C10 PO (11:19)
--- NOTE | 2020-05-11 11:42 | NUR ---
PATIENT BG 91, NO INSULIN COVERAGE NEEDED. PATIENT IS RESTING IN BED. DAILY SPONGE BATH/TOILETING COMPLETED BY TOWER ERECTOR. SAFETY MEASURES IN PLACE. WILL CONTINUE TO MONITOR.
--- NOTE | 2020-05-11 12:26 | NUR ---
ADMINISTERED PRESCRIBED MEDS PER MD ORDER. PATIENT TOLERATED WELL. PATIENT IS CURRENTLY EATING LUNCH IN BED. SAFETY MEASURES IN PLACE. WILL CONTINUE TO MONITOR.
--- NOTE | 2020-05-11 13:05 | NUR ---
DISCHARGE ORDER RECEIVED FROM MD. CALLED SON TO SCHEDULE SUPERVISOR HEAT TREATING, LEFT MESSAGE ON VOICEMAIL
--- NOTE | 2020-05-11 13:54 | NUR ---
ADMINISTERED PRESCRIBED MEDS PER MD ORDER. PATIENT TOLERATED WELL. MEDICATION EDUCATION REINFORCEMENT NEEDED DUE TO LANGUAGE BARRIER. PATIENT IN BED LISTENING TO MUSIC ON PHONE. NO SIGNS OF DISCOMFORT OR DISTRESS NOTED. SAFETY MEASURES IN PLACE. WILL CONTINUE TO MONITOR.
--- NOTE | 2020-05-11 15:35 | NUR ---
CALLED PATIENT SON TO ADVISE OF DISCHARGE. STATED HE WAS AT WORK AT THE MOMENT AND CAN STRIP CUTTING MACHINE OPERATOR PATIENT ANYTIME AFTER 5PM TODAY. PATIENT SON WILL CALL BACK WHEN HE GETS OFF WITH EXACT STRIP CUTTING MACHINE OPERATOR TIME.
[2020-05-11 16:00] VITALS: BP 124/62
[2020-05-11 16:45] VITALS: BP 124/62
--- NOTE | 2020-05-11 17:22 | NUR ---
PATIENT BG 81, NO INSULIN COVERAGE NEEDED.
--- NOTE | 2020-05-11 17:38 | NUR ---
ADMINISTERED PRESCRIBED MEDS PER MD ORDER. PATIENT TOLERATED WELL. SON TO CORK PAINTER AND GRADER PATIENT AT 1800. WILL NOW PREPARE FOR DISCHARGE.
== END 2020-05-11 18:40 | disposition home or self-care (01) | DRG 720 ==
LOC: MED 18:45 → MTU 20:52 → MIC 04-24 11:15 → MTU 04-29 18:53
PROC: 5A1945Z Respiratory Ventilation, 24-96 Consecutive Hours (ICD-10-PCS; principal; 2020-04-24)
PROC: 0BH17EZ Insertion of Endotracheal Airway into Trachea, Via Natural or Artificial Opening (ICD-10-PCS; 2020-04-24)
PROC: 5A12012 Performance of Cardiac Output, Single, Manual (ICD-10-PCS; 2020-04-24)
PROC: 0JH63XZ Insertion of Tunneled Vascular Access Device into Chest Subcutaneous Tissue and Fascia, Percutaneous Approach (ICD-10-PCS; 2020-04-24)
PROC: 02H633Z Insertion of Infusion Device into Right Atrium, Percutaneous Approach (ICD-10-PCS; 2020-04-24)
PROC: B548ZZA Ultrasonography of Superior Vena Cava, Guidance (ICD-10-PCS; 2020-04-24)
PROC: 30233N1 Transfusion of Nonautologous Red Blood Cells into Peripheral Vein, Percutaneous Approach (ICD-10-PCS; 2020-04-25)
PROC: 5A1D70Z Performance of Urinary Filtration, Intermittent, Less than 6 Hours Per Day (ICD-10-PCS; 2020-04-25)
PROC: 5A1D70Z Performance of Urinary Filtration, Intermittent, Less than 6 Hours Per Day (ICD-10-PCS; 2020-04-27)
PROC: 5A1D70Z Performance of Urinary Filtration, Intermittent, Less than 6 Hours Per Day (ICD-10-PCS; 2020-04-29)
PROC: 5A1D70Z Performance of Urinary Filtration, Intermittent, Less than 6 Hours Per Day (ICD-10-PCS; 2020-05-01)
PROC: 5A1D70Z Performance of Urinary Filtration, Intermittent, Less than 6 Hours Per Day (ICD-10-PCS; 2020-05-04)
PROC: 5A1D70Z Performance of Urinary Filtration, Intermittent, Less than 6 Hours Per Day (ICD-10-PCS; 2020-05-06)
PROC: 5A1D70Z Performance of Urinary Filtration, Intermittent, Less than 6 Hours Per Day (ICD-10-PCS; 2020-05-08)
PROC: 5A1D70Z Performance of Urinary Filtration, Intermittent, Less than 6 Hours Per Day (ICD-10-PCS; 2020-05-10)
DX: A41.9 Sepsis, unspecified organism (principal); U07.1 COVID-19; J12.82 Pneumonia due to coronavirus disease 2019; N17.0 Acute kidney failure with tubular necrosis; N18.6 End stage renal disease; E43 Unspecified severe protein-calorie malnutrition; D68.59 Other primary thrombophilia; R16.0 Hepatomegaly, not elsewhere classified; E87.1 Hypo-osmolality and hyponatremia; E11.22 Type 2 diabetes mellitus with diabetic chronic kidney disease; D63.1 Anemia in chronic kidney disease; N40.0 Benign prostatic hyperplasia without lower urinary tract symptoms; Z99.2 Dependence on renal dialysis; I13.11 Hypertensive heart and chronic kidney disease without heart failure, with stage 5 chronic kidney disease, or end stage renal disease; A04.72 Enterocolitis due to Clostridium difficile, not specified as recurrent; E78.5 Hyperlipidemia, unspecified; I46.9 Cardiac arrest, cause unspecified; J96.01 Acute respiratory failure with hypoxia; Y95 Nosocomial condition; E87.5 Hyperkalemia; I08.1 Rheumatic disorders of both mitral and tricuspid valves; G93.41 Metabolic encephalopathy; Z87.891 Personal history of nicotine dependence; Z79.4 Long term (current) use of insulin; Z68.27 Body mass index [BMI] 27.0-27.9, adult
CPT/HCPCS: 36415; 36600; 70450; 71045; 74018; 80048; 80053; 80202; 80305; 81001; 82140; 82150; 82272; 82310; 82550; 82803; 82948; 83036; 83605; 83615; 83690; 83735; 83880; 84100; 84134; 84436; 84443; 84484; 85025; 85379; 85610; 85651; 85730; 86140; 86886; 86900; 86901; 86920; 87040; 87070; 87081; 87086; 87205; 89220; 90935; 92610; 93005; 94002; 94003; 94640; 96365; 96367; 97110; 97112; 97116; 97161-GP; 97530; 99291; C1758; J0456; J0692; J0696; J1644; J1815; J2060; J2250; J2270; J2543; J3010; J3370; J3490; J7030; J7060; P9016; U0003

== ENCOUNTER 2020-05-12 01:24 | Emergency (ER) | payer MEDICAID, SELFPAY ==
[~2020-05-12] VITALS: Ht 165.1 cm; Wt 81.6 kg
[~2020-05-12 01:24] MED LIST: AMLO10TA PO; AMLO2.5T PO; ASPI-1822 PO; FURO-570 PO; INSU100S22 SUBQ; METO-251 PO; SEVE800T6 PO; TAMS0.4C97 PO; VANC125C10 PO
[2020-05-12 01:30] VITALS: BP 153/73
--- NOTE | 2020-05-12 01:30 | NUR ---
TO BED VIA WHEEL CHAIR
--- NOTE | 2020-05-12 01:47 | NUR ---
Dr. Elizabeth examining patient.
--- NOTE | 2020-05-12 01:52 | NUR ---
See complete assessment.
[2020-05-12] MEDS ORDERED: BACITRACIN OINT 500 UNITS/GM PKT TP STA (01:55)
--- NOTE | 2020-05-12 02:05 | NUR ---
WOUND CARE PROVIDED ON R HEEL OF FOOT. BASIC WOUND CARE TEACHING PROVIDED TO PATIENT AND PATIENT FAMILY MEMBER/CAREGIVER. PATIENT AND INTEGRATED CIRCUIT LAYOUT DESIGNER ABLE TO VERBALIZE UNDERSTANDING.
[2020-05-12 02:13] VITALS: BP 153/73
--- NOTE | 2020-05-12 02:15 | NUR ---
Patient discharged with v/s stable. Written and verbal after care instructions given and explained. Patient verbalized understanding. Wheel Chair Assisted with by caregiver. All questions addressed prior to discharge. Advised to follow up with PMD.
== END 2020-05-12 02:15 | disposition home or self-care (01) ==
LOC: MED 01:24
DX: L89.619 Pressure ulcer of right heel, unspecified stage (principal); E11.9 Type 2 diabetes mellitus without complications; I10 Essential (primary) hypertension; F03.90 Unspecified dementia, unspecified severity, without behavioral disturbance, psychotic disturbance, mood disturbance, and anxiety
CPT/HCPCS: 99282

== ENCOUNTER 2020-08-10 20:48 | Emergency (ER) | payer MEDICAID, SELFPAY ==
[~2020-08-10] VITALS: Ht 170.2 cm; Wt 80.3 kg
[~2020-08-10 20:48] MED LIST changes: -AMLO2.5T PO
[2020-08-10 21:04] VITALS: BP 202/93
--- NOTE | 2020-08-10 21:30 | NUR ---
59 Y/O MALE CAME TO THE ED C/O HEADACHE. PT STATES THAT "HE HAD NEVER HAD THIS PAIN BEFORE. PT STATES SHARP HEACDACHE (FRONTAL AREA) OF 10/10, THAT IS NONRADIATING. DENIES N/V/D; SKIN IS PINK/WARM/DRY; AAOX4 WITH EVEN AND STEADY GAIT; LUNGS CLEAR BL; HR EVEN AND REGULAR; PT DENIES ANY FEVER, CP, SOB, OR COUGH AT THIS TIME; VSS; PATIENT POSITIONED FOR COMFORT; HOB ELEVATED; BEDRAILS UP X2; BED DOWN. ER MD MADE AWARE OF PT STATUS. NKA PMH: DM, HTN, DIALYSIS (T, TH, S)
[2020-08-10] MEDS ORDERED: ACETAMINOPHEN EXTRA STRENGTH 500 MG TAB PO ONE (21:40)
[2020-08-10 21:46] LABS: BASOPHILS # (AUTO) 0.1 K/uL (0.00-0.22); BASOPHILS % (AUTO) 1.4 % (0.0-2.0); EOSINOPHILS # (AUTO) 0.2 K/uL (0-0.4); EOSINOPHILS % (AUTO) 3.7 % (0.0-4.0); HEMATOCRIT 36.2 % (36-52); LYMPHOCYTES # (AUTO) 1.5 K/uL (2.0-11.5); LYMPHOCYTES % (AUTO) 31.3 % (20.5-51.1); MEAN CORPUSCULAR HEMOGLOBIN 28 pg (27-31); MEAN CORPUSCULAR HGB CONC 33 g/dL (33-37); MEAN CORPUSCULAR VOLUME 84.8 fL (80-94); MONOCYTES # (AUTO) 0.5 K/uL (0.8-1.0); MONOCYTES % (AUTO) 9.8 % (1.7-9.3); NEUTROPHILS # (AUTO) 2.5 K/uL (1.8-7.7); NEUTROPHILS % (AUTO) 53.8 % (42.2-75.2); PLATELET COUNT (AUTO) 152 K/uL (140-450); RED BLOOD CELL COUNT(AUTO) 4.27 MIL/uL (4.20-6.10); RED CELL DISTRIBUTION WIDTH 15.1 % (11.6-13.7); WHITE BLOOD COUNT (AUTO) 4.6 K/uL (4.8-10.8)
[2020-08-10] MEDS ORDERED: CLONIDINE HYDROCHLORIDE 0.1 MG TAB PO ONE (21:55)
[2020-08-10 22:05] LABS: ALBUMIN 3.8 g/dL (3.4-5.0); ANION GAP 11.9 (8-16); POTASSIUM 3.9 mmol/L (3.5-5.1); TOTAL BILIRUBIN 0.9 mg/dL (0.0-1.0)
[2020-08-10 22:06] LABS: CREATININE 6.8 mg/dL (0.6-1.3); PROTHROMBIN TIME 10.2 secs (10.8-13.4)
[2020-08-11 00:27] VITALS: BP 179/68
--- NOTE | 2020-08-11 00:44 | NUR ---
Patient discharged with v/s stable. Written and verbal after care instructions given and explained. Patient verbalized understanding. Ambulatory with to car. All questions addressed prior to discharge. Advised to follow up with PMD.
== END 2020-08-11 00:27 | disposition home or self-care (01) ==
LOC: MED 20:48
DX: R51.9 Headache, unspecified (principal); I16.0 Hypertensive urgency; E11.9 Type 2 diabetes mellitus without complications; I10 Essential (primary) hypertension; Z79.4 Long term (current) use of insulin; Z79.899 Other long term (current) drug therapy
CPT/HCPCS: 36415; 70450; 80053; 85025; 85610; 85730; 99285

== ENCOUNTER 2020-12-07 07:03 | Inpatient (IN) | payer MEDICAID, SELFPAY ==
[~2020-12-07] VITALS: Ht 167.6 cm; Wt 85.7 kg
[2020-12-07 07:18] VITALS: BP 169/93
--- NOTE | 2020-12-07 07:40 | NUR ---
BLOOD SUGAR 75 AT THIS TIME.
[2020-12-07] MEDS ORDERED: AZITHROMYCIN 500 MG in DEXTROSE 5% 250 ML IV ONE ×2 (10:25→10:40)
[2020-12-07] MEDS ORDERED: cefTRIAXone 1,000 MG VIAL ONE (11:04)
--- NOTE | 2020-12-07 11:12 | NUR ---
INITAL CONTACT WITH PATIENT - RECEIVED FROM [employer]. PT IS ON HOME O2 AT 3L NC, SATURATIONS CURRENTLY 97% ON 3L. NO ACUTE DISTRESS NOTED AT THIS TIME.
[2020-12-07 11:42] LABS: BASOPHILS # (AUTO) 0.1 K/uL (0.00-0.22); BASOPHILS % (AUTO) 1.5 % (0.0-2.0); EOSINOPHILS # (AUTO) 0.2 K/uL (0-0.4); EOSINOPHILS % (AUTO) 3.9 % (0.0-4.0); HEMATOCRIT 29.7 % (36-52); HEMOGLOBIN 9.9 g/dL (12.0-18.0); LYMPHOCYTES % (AUTO) 17.5 % (20.5-51.1); MEAN CORPUSCULAR HEMOGLOBIN 29 pg (27-31); MEAN CORPUSCULAR HGB CONC 33 g/dL (33-37); MEAN CORPUSCULAR VOLUME 87.8 fL (80-94); MONOCYTES # (AUTO) 0.3 K/uL (0.8-1.0); MONOCYTES % (AUTO) 5.5 % (1.7-9.3); NEUTROPHILS # (AUTO) 4.1 K/uL (1.8-7.7); NEUTROPHILS % (AUTO) 71.6 % (42.2-75.2); PLATELET COUNT (AUTO) 183 K/uL (140-450); RED BLOOD CELL COUNT(AUTO) 3.38 MIL/uL (4.20-6.10); RED CELL DISTRIBUTION WIDTH 16.4 % (11.6-13.7); WHITE BLOOD COUNT (AUTO) 5.8 K/uL (4.8-10.8)
[2020-12-07 11:51] LABS: CARBON DIOXIDE 28.2 mmol/L (21-32); POTASSIUM 5.2 mmol/L (3.5-5.1); TOTAL BILIRUBIN 0.8 mg/dL (0.0-1.0)
[2020-12-07 11:53] LABS: CREATININE 10.7 mg/dL (0.6-1.3)
[2020-12-07] MEDS ORDERED: AZITHROMYCIN 500 MG INJ VIAL IV ONE (12:04)
[2020-12-07] MEDS ORDERED: DOCUSATE SODIUM 100 MG GELCAP PO PRN (12:25)
[2020-12-07] MEDS ORDERED: SODIUM PHOS / POTASSIUM PHOS 1 PKT PDR PO PRN (12:25)
[2020-12-07] MEDS ORDERED: ZOLPIDEM 5 MG TAB PO PRN (12:25)
[2020-12-07] MEDS ORDERED: LORazepam 2 MG/ML VIAL IM/IVP PRN (12:25)
[2020-12-07] MEDS ORDERED: MAG SULF 2000 MG/WATER PREMIX 50 ML IV PRN (12:25)
[2020-12-07] MEDS ORDERED: MORPHINE SULFATE 2 MG/ML SYR IVP PRN (12:25)
[2020-12-07] MEDS ORDERED: HYDROcodone/APAP 5/325 MG 1 TAB TAB PO PRN (12:25)
[2020-12-07] MEDS ORDERED: ONDANSETRON 4 MG/2 ML VIAL IVP PRN (12:25)
[2020-12-07] MEDS ORDERED: ACETAMINOPHEN 325 MG TAB PO PRN (12:25)
[2020-12-07] MEDS ORDERED: POTASSIUM CHLORIDE 10 MEQ TABER PO PRN (12:25)
--- NOTE | 2020-12-07 13:59 | NUR ---
NO ACUTE CHANGES IN CONDITION - REMAINS IN BED, NO DISTRESS NOTED.
[2020-12-07 14:44] LABS: CHOL/HDL RATIO 2.6 (1-4.5); FREE T4 (FREE THYROXINE) 1.04 ng/dL (0.76-1.46); PHOSPHORUS 6.9 mg/dL (2.5-4.9); THYROID STIMULATING HORMONE 0.95 uIU/mL (0.34-3.74)
[2020-12-07 14:52] LABS: PROTHROMBIN TIME 10.3 secs (10.8-13.4)
--- NOTE | 2020-12-07 16:43 | NUR ---
REPORT TO EMILY LIU. ALL CARE TRANSFERRED.
--- NOTE | 2020-12-07 16:46 | NUR ---
PT MOVED TO BED 6
--- NOTE | 2020-12-07 16:46 | NUR ---
60 Y/O BIB SON C/O DIFFICULTY BREATHING, MID CHEST PAIN X 3 DAYS. COVID TESTED POSITIVE IN MAR 25, 2020. DENIES COUGH OR FEVER AT THIS TIME. O2 SAT 99 % WITH O2 NASAL CANULAR 4 L/M. PMH: DM, ESRD WITH DIALYSIS ([facility], JEANNE)
--- NOTE | 2020-12-07 16:47 | NUR ---
Report and continuation of care received from EMILY Shankar. Patient transported from bed 12 to bed 06; hx ESRD, HTN, MWF dialysis pt, on 3L home O2. A&Ox4, Indian speaking. Addendum: 12/07/20 at 1653 by GONSALO Dialysis access R upper chest
--- NOTE | 2020-12-07 16:50 | NUR ---
Patient resting in high-fowlers on 4L by NC; SpO2 98% RR 21 even/unlabored. Bed locked in lowest position, side rails x 2, call light in reach.
--- NOTE | 2020-12-07 16:55 | NUR ---
BP 183/86. ATTEMPTED TO PULL TWICE, APRESOLINE 10MG PRN BY [employer], NO INVENTORY. PHARM CONTACTED.
--- NOTE | 2020-12-07 16:59 | NUR ---
Pharmacy advised to pull medication from ICU.
[2020-12-07] MEDS: NACL 0.9% 500 ML IV SCH (17:16)
[2020-12-07] MEDS: hydrALAZINE 20 MG/ML VIAL IVP PRN (17:26)
--- NOTE | 2020-12-07 17:40 | NUR ---
Patient asleep laying on left side. nurse transplant in place. BP 185/75. Remains on 3L NC SpO2 98%. Bed locked in lowest position, side rails x 2.
--- NOTE | 2020-12-07 18:05 | NUR ---
Patient sitting upright in bed c/o chest pain and SOB, SpO2 85% on 4L NC. Crackles noted throughout lung donato. Dr. Moreno made aware and advised: -One time Lasix 40mg IVP -Repeat Troponin -EKG in 1 hour -NTG 0.5mg SL -Dr. Corcoran consultation Dr. Moreno made aware that quality assurance monitor final touched base and received no ETA for hemodialysis.
[2020-12-07] MEDS ORDERED: NITROGLYCERIN 0.4 MG TAB SL SCH (18:30)
[2020-12-07] MEDS ORDERED: FUROSEMIDE 40 MG/4 ML VIAL IVP SCH (18:30)
--- NOTE | 2020-12-07 18:30 | NUR ---
Apresoline reassessed BP: 188/68
--- NOTE | 2020-12-07 19:00 | NUR ---
Melvin rm swab collected, handed to CPT Charlotte at ER bedside
--- NOTE | 2020-12-07 19:17 | NUR ---
Report and transfer of care endmayted to EMILY Wong.
--- NOTE | 2020-12-07 20:00 | NUR ---
SITTING COMFORTABLY AT SIDE OF BED.
--- NOTE | 2020-12-07 21:20 | NUR ---
REPORT CALLED TO EMILY JUSTICE
--- NOTE | 2020-12-07 21:40 | NUR ---
TO 114B VIA GURNEY ATTACHED TO CM
--- NOTE | 2020-12-07 21:45 | NUR ---
PATIENT WAS BROUGHT TO [facility] FROM ER AAOX4. CC: SOB DX: PNA, ESRD WITH HD PULMONARY EDEMA , ANEMIA. IV LINE ON THE LAC INTACT AND IN PLACE. NO ACUTE DISTRESS NOTED. RESPIRATION REGULAR NON LABORED. TUNNELED RIJ HEMODIALYSIS CATHETER WITH DRESSING DRY AND INTACT. RIGHT FOOT 3RD, 4TH, 5TH TOE AMPUTATION. MRSA SCREENING DONE. ORIENTED TO ROOM, CALL LIGHT , STAFF. PLACED IN BED COMFORTABLY. DENIES PAIN. WILL CONTINUE TO MONITOR.
[2020-12-07] MEDS: METOPROLOL 50 MG TAB PO SCH (22:45)
[2020-12-08 04:00] VITALS: BP 193/77
--- NOTE | 2020-12-08 07:28 | NUR ---
ENDORSED TO AM NURSE FOR CONTINUITY OF CARE.
[2020-12-08 07:40] LABS: BASOPHILS # (AUTO) 0.1 K/uL (0.00-0.22); BASOPHILS % (AUTO) 1.8 % (0.0-2.0); EOSINOPHILS # (AUTO) 0.2 K/uL (0-0.4); EOSINOPHILS % (AUTO) 3.3 % (0.0-4.0); HEMATOCRIT 29.7 % (36-52); HEMOGLOBIN 9.8 g/dL (12.0-18.0); LYMPHOCYTES # (AUTO) 0.8 K/uL (2.0-11.5); LYMPHOCYTES % (AUTO) 15.3 % (20.5-51.1); MEAN CORPUSCULAR HEMOGLOBIN 29 pg (27-31); MEAN CORPUSCULAR HGB CONC 33 g/dL (33-37); MEAN CORPUSCULAR VOLUME 88.9 fL (80-94); MONOCYTES # (AUTO) 0.2 K/uL (0.8-1.0); MONOCYTES % (AUTO) 4.7 % (1.7-9.3); NEUTROPHILS # (AUTO) 3.8 K/uL (1.8-7.7); NEUTROPHILS % (AUTO) 74.9 % (42.2-75.2); PLATELET COUNT (AUTO) 178 K/uL (140-450); RED BLOOD CELL COUNT(AUTO) 3.34 MIL/uL (4.20-6.10); RED CELL DISTRIBUTION WIDTH 16.6 % (11.6-13.7); WHITE BLOOD COUNT (AUTO) 5.1 K/uL (4.8-10.8)
[2020-12-08 07:42] LABS: ANION GAP 20.9 (8-16); CARBON DIOXIDE 23.7 mmol/L (21-32); POTASSIUM 5.6 mmol/L (3.5-5.1)
[2020-12-08 07:49] LABS: MAGNESIUM 3.1 mg/dL (1.8-2.4); PHOSPHORUS 7.9 mg/dL (2.5-4.9)
[2020-12-08 08:00] VITALS: BP 171/73
[2020-12-08] MEDS: METOPROLOL 50 MG TAB PO SCH ×2 (09:00→22:59)
[2020-12-08] MEDS: amLODIPine 5 MG TAB PO SCH (09:00)
[2020-12-08 09:02] LABS: CREATININE 11.9 mg/dL (0.6-1.3)
--- NOTE | 2020-12-08 09:35 | NUR ---
PATIENT HAS BEEN SCREENED AND CATEGORIZED MODERATE NUTRITION RISK. PATIENT WILL BE SEEN WITHIN 3-5 DAYS OF ADMISSION. 12/09/20-12/11/[address]
[2020-12-08] MEDS: AZITHROMYCIN 500 MG in DEXTROSE 5% 250 ML IV SCH (10:00)
[2020-12-08] MEDS: FUROSEMIDE 40 MG TAB PO SCH (10:10)
[2020-12-08] MEDS: SEVELAMER CARBONATE 800 MG TAB PO SCH (10:10)
[2020-12-08] MEDS: ASPIRIN 81 MG TAB.CHEW PO SCH (10:10)
[2020-12-08] MEDS: TAMSULOSIN 0.4 MG CAP PO SCH (10:11)
--- NOTE | 2020-12-08 10:14 | NUR ---
SCHEDULED MEDICATIONS DUE GIVEN. WILL CONTINUE TO MONITOR.
--- NOTE | 2020-12-08 11:40 | NUR ---
DC PLANNIN YRS OLD MALE PATIENT WAS ADMITTED FROM HOME WITH A DX OF PNEUMONIA, ESRD, FLUID OVERLOAD. PT HAS A HX OF HTN, DM CHRONIC RESP FAILURE AND HEMODIALYSIS TTHS. ON 4L/NC SATING 95% COVID TEST RAPID COVID TEST NEGATIVE. ADMINISTERED IVF, IV ABX AZITHROMYCIN, ROCEPHIN AND CONTINUED HOME MEDS. CONSULTED WITH RETAIL SUPPORT SPECIALIST , GLADIS TILLEY. DC PLAN TO GO HOME WHEN STABLE. CM TO FOLLOW Addendum: 12/09/20 at 1230 by Eve Reyes RN DC PLANNING: PT IS CURRENTLY WITH [facility] [address] ,,SAT CHAIR TIME 1:15 CALLED TO CONFIRM. ON O2 4L/NC SATING 94%. CONTINUE IV ABX AZITHROMYCIN , LASIX IV AND HOME MEDS. PULMO,CARDIO AND NEPHRO FOLLOWING. DC PLAN TO GO HOME WHEN STABLE. CM TO FOLLOW
[2020-12-08 12:00] VITALS: BP 180/87
--- NOTE | 2020-12-08 12:00 | NUR ---
HD NURSE AT BEDSIDE TO PERFORM DIALYSIS. WILL CONTINUE TO MONITOR.
[2020-12-08] MEDS: NACL 0.9% 500 ML IV SCH (12:25)
--- NOTE | 2020-12-08 12:30 | NUR ---
HD REPORTS MACHINE IS BROKEN AND NEEDS TO BE FIXED. SOMEONE WILL COME TO FIX MACHINE.
--- NOTE | 2020-12-08 14:23 | NUR ---
SCHEDULED MEDICATIONS DUE GIVEN. WILL CONTINUE TO MONITOR.
[2020-12-08] MEDS ORDERED: ALBUTEROL SULFATE/IPRATROPIU 3 ML SOL IH PRN (14:55)
[2020-12-08] MEDS ORDERED: SODIUM ZIRCONIUM CYCLOSILICATE 10 GM POWD.PACK PO SCH (15:00)
[2020-12-08 16:00] VITALS: BP 162/81
--- NOTE | 2020-12-08 16:04 | NUR ---
SCHEDULED MEDICATIONS DUE GIVEN. WILL CONTINUE TO MONITOR.
--- NOTE | 2020-12-08 19:27 | NUR ---
GAVE REPORT TO HAND ORNAMENT MAKER NURSE FOR CONTINUITY OF CARE. PATIENT IN STABLE CONDITION.
--- NOTE | 2020-12-08 19:28 | NUR ---
RECEIVED REPORT FROM AM NURSE FOR CONTINUITY OF CARE. PATIENT IN BED WITH EYES CLOSED WHILE DIALYSIS IS ONGOING. NO ACUTE DISTRESS NOTED. VITAL SIGNS MONITORED BY DIALYSIS NURSE.
[2020-12-08 20:00] VITALS: BP 156/81
[2020-12-08] MEDS: LOSARTAN 25 MG TAB PO SCH (22:58)
--- NOTE | 2020-12-08 23:00 | NUR ---
LOSARTAN AND METOPROLOL GIVEN AFTER DIALYSIS, 2229
--- NOTE | 2020-12-08 23:12 | NUR ---
PATIENT COMPLAINED OF GENERALIZED SEVERE PAIN, 8/10 MORPHINE GIVEN ORDERED. BP-- 162/84 P-72 RR-18
[2020-12-09] VITALS: BP 164/78
[2020-12-09 04:00] VITALS: BP 189/80
[2020-12-09] MEDS: hydrALAZINE 20 MG/ML VIAL IVP PRN (05:58)
--- NOTE | 2020-12-09 07:28 | NUR ---
ENDORSED TO AM NURSE FOR CONTINUITY OF CARE. PATIENT IN STABLE CONDITION.
--- NOTE | 2020-12-09 07:28 | NUR ---
RECEIVED REPORT FROM INVESTOR NURSE FOR CONTINUITY OF CARE, POC DISCUSSED. PT IS ASLEEP IN BED WITH CHEST RISING AND FALLING EVEN AND UNLABORED ON 5L NC. PT IS ON ENHANCED PRECAUTIONS FOR PCR PENDING. PT RECEIVED HEMODIALYSIS , REMOVING 3L. PT IS ON TELEMONITOR ON SR 73. PT HAS A RIGHT 3RD, 4TH, AND 5TH AMPUTATION. PT HAS A RIGHT FA RUNNING TKO, AND A RIJ FOR HD. ALL SAFETY MEASURES IN PLACE, CALL LIGHT WITHIN REACH. WILL CONTINUE TO MONITOR.
[2020-12-09 07:47] LABS: BASOPHILS # (AUTO) 0.1 K/uL (0.00-0.22); BASOPHILS % (AUTO) 1.3 % (0.0-2.0); EOSINOPHILS # (AUTO) 0.2 K/uL (0-0.4); EOSINOPHILS % (AUTO) 5.2 % (0.0-4.0); HEMATOCRIT 28.2 % (36-52); HEMOGLOBIN 9.5 g/dL (12.0-18.0); LYMPHOCYTES % (AUTO) 21.3 % (20.5-51.1); MEAN CORPUSCULAR HEMOGLOBIN 29 pg (27-31); MEAN CORPUSCULAR HGB CONC 34 g/dL (33-37); MEAN CORPUSCULAR VOLUME 87.4 fL (80-94); MONOCYTES # (AUTO) 0.3 K/uL (0.8-1.0); MONOCYTES % (AUTO) 7.2 % (1.7-9.3); NEUTROPHILS # (AUTO) 3.1 K/uL (1.8-7.7); PLATELET COUNT (AUTO) 155 K/uL (140-450); RED BLOOD CELL COUNT(AUTO) 3.23 MIL/uL (4.20-6.10); RED CELL DISTRIBUTION WIDTH 16.5 % (11.6-13.7); WHITE BLOOD COUNT (AUTO) 4.7 K/uL (4.8-10.8)
[2020-12-09 08:00] VITALS: BP 149/69
[2020-12-09] MEDS: SEVELAMER CARBONATE 800 MG TAB PO SCH (08:51)
[2020-12-09] MEDS: METOPROLOL 50 MG TAB PO SCH ×2 (08:52→20:22)
[2020-12-09] MEDS: TAMSULOSIN 0.4 MG CAP PO SCH (08:52)
[2020-12-09] MEDS: ASPIRIN 81 MG TAB.CHEW PO SCH (08:52)
[2020-12-09] MEDS: LOSARTAN 25 MG TAB PO SCH ×2 (08:52→20:22)
[2020-12-09] MEDS: FUROSEMIDE 40 MG TAB PO SCH (08:53)
[2020-12-09] MEDS: amLODIPine 5 MG TAB PO SCH (08:53)
--- NOTE | 2020-12-09 09:04 | NUR ---
FREDDY MEDICATION ADMINISTERED PER MD ORDER, PT TOLERATED ADMINISTRATION. ALL SAFETY MEASURES IN PLACE, CALL LIGHT WITHIN REACH. WILL CONTINUE TO MONITOR.
[2020-12-09] MEDS: AZITHROMYCIN 500 MG in DEXTROSE 5% 250 ML IV SCH (10:10)
--- NOTE | 2020-12-09 10:23 | NUR ---
FREDDY MEDICATION ADMINISTERED PER MD ORDER, PT TOLERATED ADMINISTRATION. PT IS RESTING COMFORTABLE IN BED WITH CHEST RISING AND FALLING EVEN AND UNLABORED. ALL SAFETY MEASURES IN PLACE, CALL LIGHT WITHIN REACH. WILL CONTINUE TO MONITOR.
--- NOTE | 2020-12-09 11:37 | NUR ---
PAGED MD ABOUT RADIOLOGIES QUESTION FOR THORACENTESIS, NO ANSWER
[2020-12-09 11:40] LABS: ANION GAP 16.4 (8-16); CARBON DIOXIDE 26.8 mmol/L (21-32); POTASSIUM 4.2 mmol/L (3.5-5.1)
[2020-12-09 11:45] LABS: CREATININE 9.4 mg/dL (0.6-1.3)
[2020-12-09 11:47] LABS: ALBUMIN 3.6 g/dL (3.4-5.0); PHOSPHORUS 6.6 mg/dL (2.5-4.9); TOTAL BILIRUBIN 0.8 mg/dL (0.0-1.0)
[2020-12-09 12:00] VITALS: BP 149/66
--- NOTE | 2020-12-09 12:02 | NUR ---
NOTIFIED MUTIAH OF RADIOLOGY QUESTION
--- NOTE | 2020-12-09 12:04 | NUR ---
CALLED ACUTE DIALYSIS TO ENSURE PT IS ON LIST FOR DIALYSIS TODAY. FRANCISCO J LORE STATED HE WILL BE RECEIVING DIALYSIS TODAY.
[2020-12-09] MEDS: NACL 0.9% 500 ML IV SCH (12:30)
--- NOTE | 2020-12-09 12:30 | NUR ---
DAILYSISI NURSE AT BEDSIDE
--- NOTE | 2020-12-09 12:35 | NUR ---
DIALYSIS NURSE STATED SHE WILL RETURN TO DO PTS HEMODIALYSIS. PT IS STABLE.
--- NOTE | 2020-12-09 12:58 | NUR ---
PCR OBTAINED AND SENT TO THE LAB
--- NOTE | 2020-12-09 13:41 | NUR ---
PT IS RESTING IN BED WITH NO ACUTE S/S OF DISTRESS OR SOB. ALL SAFETY MEASURES IN PLACE, CALL LIGHT WITHIN REACH. WILL CONTINUE TO MONITOR.
--- NOTE | 2020-12-09 15:45 | NUR ---
IMAGING AIDE MADE ROUNDS, STATED THORACENTESIS FOR PT. SPOKE TO RADIOLOGY, PROCEDURE TO BE COMPLETED 12/10/20, NO BLOOD THINNERS. WILL ENDORSE.
[2020-12-09 16:00] VITALS: BP 162/70
--- NOTE | 2020-12-09 16:37 | NUR ---
HEMODIALYSIS NURSE AT BEDSIDE
--- NOTE | 2020-12-09 18:48 | NUR ---
PT IS STABLE WITH HEMODIALYSIS NURSE AT BEDSIDE MONITORING PT.
--- NOTE | 2020-12-09 19:02 | NUR ---
PT ENDORSED TO REGISTERED RADIOGRAPHER NURSE FOR CONTINUITY OF CARE, POC DISCUSSED.
--- NOTE | 2020-12-09 19:10 | NUR ---
RECEIVED BEDSIDE REPORT FROM DAY SHIFT NURSE. PATIENT IS AWAKE, DIALYSIS NURSE AT BEDSIDE. NO DISTRESS NOTED. WILL CONTINUE TO MONITOR.
[2020-12-09 20:00] VITALS: BP 165/88
--- NOTE | 2020-12-09 20:10 | NUR ---
DIALYSIS DONE. OUTPUT 1.8L
--- NOTE | 2020-12-09 20:25 | NUR ---
ALL SCHEDULED MEDS WERE GIVEN PER ORDER. WILL CONTINUE TO MONITOR
--- NOTE | 2020-12-09 22:27 | NUR ---
PT SITTING ON SIDE OF BED ON PHONE PT WILL NOT RESPOND TO ME AND APPEARS TO BE W/ NO DISTRESS AT THIS TIME WILL CONTINUE TO MONITOR
[2020-12-10] VITALS (7 sets, daily range): BP systolic 144–178; BP diastolic 60–89
--- NOTE | 2020-12-10 | NUR ---
VITALS WERE TAKEN.
[2020-12-10] MEDS: hydrALAZINE 20 MG/ML VIAL IVP PRN (03:58)
--- NOTE | 2020-12-10 03:58 | NUR ---
VITALS TAKEN. PATIENT BP IS HIGH 189/100 PRN HYDRALAZINE GIVEN. WILL REASSESS
--- NOTE | 2020-12-10 05:46 | NUR ---
RECHECKED PATIENT BP, PATIENT BP 159/88 WILL CONTINUE TO MONITOR
[2020-12-10 06:26] LABS: BASOPHILS % (AUTO) 0.9 % (0.0-2.0); EOSINOPHILS # (AUTO) 0.2 K/uL (0-0.4); EOSINOPHILS % (AUTO) 4.9 % (0.0-4.0); HEMATOCRIT 27.5 % (36-52); HEMOGLOBIN 9.1 g/dL (12.0-18.0); LYMPHOCYTES # (AUTO) 1.3 K/uL (2.0-11.5); LYMPHOCYTES % (AUTO) 29.4 % (20.5-51.1); MEAN CORPUSCULAR HEMOGLOBIN 29 pg (27-31); MEAN CORPUSCULAR HGB CONC 33 g/dL (33-37); MEAN CORPUSCULAR VOLUME 88.7 fL (80-94); MONOCYTES # (AUTO) 0.4 K/uL (0.8-1.0); MONOCYTES % (AUTO) 9.2 % (1.7-9.3); NEUTROPHILS # (AUTO) 2.5 K/uL (1.8-7.7); NEUTROPHILS % (AUTO) 55.6 % (42.2-75.2); PLATELET COUNT (AUTO) 152 K/uL (140-450); RED BLOOD CELL COUNT(AUTO) 3.11 MIL/uL (4.20-6.10); RED CELL DISTRIBUTION WIDTH 16.4 % (11.6-13.7); WHITE BLOOD COUNT (AUTO) 4.4 K/uL (4.8-10.8)
--- NOTE | 2020-12-10 07:12 | NUR ---
ENDORSED PATIENT TO DAY SHIFT NURSE FOR CONTINUITY OF CARE.
[2020-12-10 07:15] LABS: ALBUMIN 3.2 g/dL (3.4-5.0); ANION GAP 17.3 (8-16); CARBON DIOXIDE 23.8 mmol/L (21-32); POTASSIUM 4.1 mmol/L (3.5-5.1); TOTAL BILIRUBIN 0.6 mg/dL (0.0-1.0)
--- NOTE | 2020-12-10 07:15 | NUR ---
PT RECEIVED FROM PROCESS SAFETY SPECIALIST RN . PT RESTING IN BED. NO S/SX OF DISTRESS. CALL LIGHT IS WITHIN REACH . ALL SAFETY MEASURES ARE IN PLACE
[2020-12-10 07:21] LABS: CREATININE 7.5 mg/dL (0.6-1.3)
--- NOTE | 2020-12-10 08:48 | NUR ---
MD AT BEDSIDE , PT EXPLAINED RISK AND BENEFITS FOR THORACENTESIS. PT VERBALIZED UNDERSTANDING. CERTIFIED LENS GRINDING MACHINE OPERATOR USED. PT DENIED ANY QUESTIONS OR CONCERNS.
--- NOTE | 2020-12-10 09:02 | NUR ---
THORACENTESIS COMPLETE. PT TOLERATED WELL. NO S/SX OF DISTRESS. ALL SAFETY MEASURES ARE IN PLACE.
[2020-12-10] MEDS: LOSARTAN 25 MG TAB PO SCH ×2 (09:21→21:53)
[2020-12-10] MEDS: ASPIRIN 81 MG TAB.CHEW PO SCH (09:21)
[2020-12-10] MEDS: hydrALAZINE 10 MG TAB PO SCH ×3 (09:21→17:31)
[2020-12-10] MEDS: METOPROLOL 50 MG TAB PO SCH ×2 (09:22→21:52)
[2020-12-10] MEDS: FUROSEMIDE 40 MG TAB PO SCH (09:22)
[2020-12-10] MEDS: TAMSULOSIN 0.4 MG CAP PO SCH (09:22)
[2020-12-10] MEDS: amLODIPine 5 MG TAB PO SCH (09:22)
[2020-12-10] MEDS: SEVELAMER CARBONATE 800 MG TAB PO SCH (09:22)
[2020-12-10] MEDS: AZITHROMYCIN 500 MG in DEXTROSE 5% 250 ML IV SCH (10:46)
[2020-12-10] MEDS ORDERED: CEPH250C16 PO (11:13)
--- NOTE | 2020-12-10 11:32 | NUR ---
PT IV PULLED OUT OF PLACEMENT. DISCONTINUED AND INTACT. NEW IV INSERTED RIGHT FOREARM 24 G. DRESSING CLEAN AND DRY. PATIENT TOLERATED WELL. CALL LIGHT IN REACH. ALL SAFETY MEASURES IN PLACE
[2020-12-10] MEDS: NACL 0.9% 500 ML IV SCH (12:41)
--- NOTE | 2020-12-10 14:03 | NUR ---
FRANCISCO J CALLED REGARDING DIALYSES ORDER. HD NURSE VERBALIZED UNDERSTANDING AND STATES THEY WILL BE HERE TOMORROW . NO TIME GIVEN AT THIS TIME.
--- NOTE | 2020-12-10 15:45 | NUR ---
12/10/20 RD INITIAL ASSESSMENT COMPLETED PLEASE REFER TO NUTRITION ASSESSMENT UNDER CARE ACTIVITY FOR ESTIMATED NUTRITIONAL NEEDS. 1. CONTINUE RENAL DIET TOLERATED 2. CONSULT RD PRN 3. RD TO FOLLOW-UP 5-7 DAYS, LOW RISK RADHA HAMILTON RD
--- NOTE | 2020-12-10 16:30 | NUR ---
PATIENT IS A 60 YEAR OLD MALE ADMITTED IN THE [facility]/ER ON 12/07/20 DUE TO SHORTNESS OF BREATH. SW CALLED PATIENT'S SON BERNARDO CAGE AT TO DISCUSS AND GATHER PATIENT COLLATERAL INFORMATION. PATIENT'S SON STATED THAT PATIENT IS LIVING WITH HIM AT THIS HOME IN [place] AND HE HAS NO ADVANCE DIRECTIVES BUT WAS INTERESTED ON GETTING INFO. PACKET PROVIDED BY [employer]. PER PATIENT'S SON HE HAS NO PCP AND WOULD LIKE TO GET ALSO THE LIST OF LOW COST CLINICS. PATIENT HAS NO ISSUES GETTING OR TAKING HIS MEDICATIONS AND HAS NO DME AT HOME. PATIENT IS GETTING DIALYSIS AT [facility] SUNDAY, THURSDAYS, AND SATURDAYS AT 1:00 PM. PER PATIENT'S SON BERNARDO HE IS THE ONE THAT IS TRANSPORTING PT. TO GET HIS DIALYSIS TREATMENT. HE ALSO STATED THAT HE WILL PROVIDE PATIENT WITH TRANSPORT BACK HOME AFTER DISCHARGE FROM [facility]. SW WILL FOLLOW UP NEEDED.
--- NOTE | 2020-12-10 17:31 | NUR ---
MEDICATIONS GIVEN PER MD ORDER, PT EDUCATED PT VERBALIZED UNDERSTANDING . PT STATES NO MORE BP MEDS NOTHING BRINGS IT DOWN . PATIENT UPDATED WITH LATEST VITAL SIGNS. ALL SAFETY MEASURES IN PLACE.
--- NOTE | 2020-12-10 18:10 | NUR ---
PTS FAMILY MEMBER CAME TO LIBRARY PARAPROFESSIONAL ITEM , FAMILY MEMBER UNABLE TO COME IN . ITEM TRANSPORTED BY CONSUMER AFFAIRS DIRECTOR TO THE FROMT. PT DENIES PAIN AT THIS TIME . ALL SAFETY MEASURES IN PLACE.
--- NOTE | 2020-12-10 19:30 | NUR ---
PT ENDORSED TO BLUEPRINT ASSEMBLER RN FOR CONTINUITY OF CARE. PT INSTABLE CONDITION.
--- NOTE | 2020-12-11 00:43 | NUR ---
PT RECEIVED FROM HEAD REFRIGERATION ENGINEER RN . PT RESTING IN BED. NO S/SX OF DISTRESS. CALL LIGHT IS WITHIN REACH . ALL SAFETY MEASURES ARE IN PLACE. PATIENT EDUCATED TO RN PLAN OF CARE. DISCUSSED WITH PATIENT MEDICAL REGIMEN, FALL AND SAFETY INTERVENTIONARY MEASURES. DISCUSSED WITH PATIENT MEDICAL PLAN OF CARE. PATIENT RECEPTIVE TO RN INSTRUCTIONS.
[2020-12-11 05:19] VITALS: BP 138/68
[2020-12-11 06:20] LABS: BASOPHILS % (AUTO) 0.9 % (0.0-2.0); EOSINOPHILS # (AUTO) 0.3 K/uL (0-0.4); EOSINOPHILS % (AUTO) 4.8 % (0.0-4.0); HEMATOCRIT 27.9 % (36-52); HEMOGLOBIN 9.4 g/dL (12.0-18.0); LYMPHOCYTES # (AUTO) 1.6 K/uL (2.0-11.5); MEAN CORPUSCULAR HEMOGLOBIN 29 pg (27-31); MEAN CORPUSCULAR HGB CONC 34 g/dL (33-37); MONOCYTES # (AUTO) 0.5 K/uL (0.8-1.0); MONOCYTES % (AUTO) 8.6 % (1.7-9.3); NEUTROPHILS # (AUTO) 2.9 K/uL (1.8-7.7); NEUTROPHILS % (AUTO) 55.7 % (42.2-75.2); PLATELET COUNT (AUTO) 131 K/uL (140-450); RED BLOOD CELL COUNT(AUTO) 3.21 MIL/uL (4.20-6.10); RED CELL DISTRIBUTION WIDTH 15.6 % (11.6-13.7); WHITE BLOOD COUNT (AUTO) 5.3 K/uL (4.8-10.8)
[2020-12-11 07:20] LABS: ANION GAP 17.7 (8-16); CARBON DIOXIDE 23.7 mmol/L (21-32); POTASSIUM 4.4 mmol/L (3.5-5.1)
[2020-12-11 07:27] LABS: ALBUMIN 3.2 g/dL (3.4-5.0); PHOSPHORUS 8.3 mg/dL (2.5-4.9); TOTAL BILIRUBIN 0.5 mg/dL (0.0-1.0)
--- NOTE | 2020-12-11 07:30 | NUR ---
RECEIVED REPORT FROM HEAVY EQUIPMENT FIELD MECHANIC NURSE FOR CONTINUITY OF CARE. IN BED WITH CHEST RISING AND FALLING EVEN AND UNLABORED ON 5L NC. PT IS ON ENHANCED PRECAUTIONS FOR PCR PENDING. HEMODIALYSIS SCHEDULED FOR TODAY. ON TELEMONITOR ON SR. PT HAS A RIGHT 3RD, 4TH, AND 5TH AMPUTATION. WITH HD CATH RIJ. ALL SAFETY MEASURES IN PLACE, CALL LIGHT WITHIN REACH. WILL CONTINUE TO MONITOR.
[2020-12-11 07:32] LABS: CREATININE 9.3 mg/dL (0.6-1.3)
[2020-12-11 08:00] VITALS: BP 180/64
--- NOTE | 2020-12-11 09:00 | NUR ---
DUE MEDS GIVEN. TOLERATED WELL.
[2020-12-11] MEDS: ASPIRIN 81 MG TAB.CHEW PO SCH (09:45)
[2020-12-11] MEDS: TAMSULOSIN 0.4 MG CAP PO SCH (09:45)
[2020-12-11] MEDS: LOSARTAN 25 MG TAB PO SCH ×2 (09:45→21:48)
[2020-12-11] MEDS: hydrALAZINE 10 MG TAB PO SCH ×2 (09:45→12:43)
[2020-12-11] MEDS: FUROSEMIDE 40 MG TAB PO SCH (09:46)
[2020-12-11] MEDS: METOPROLOL 50 MG TAB PO SCH ×2 (09:46→21:48)
[2020-12-11] MEDS: amLODIPine 5 MG TAB PO SCH (09:47)
[2020-12-11] MEDS: SEVELAMER CARBONATE 800 MG TAB PO SCH (09:47)
[2020-12-11] MEDS: AZITHROMYCIN 500 MG in DEXTROSE 5% 250 ML IV SCH (10:04)
--- NOTE | 2020-12-11 11:30 | NUR ---
HD IN PROGRESS, NO APPARENT DISTRESS
[2020-12-11] MEDS: NACL 0.9% 500 ML IV SCH (12:26)
[2020-12-11] MEDS: hydrALAZINE 20 MG/ML VIAL IVP PRN (13:30)
--- NOTE | 2020-12-11 13:30 | NUR ---
HYDRALAZINE 10MG IVP GIVEN FOR SBP 180. WILL REASSESS
--- NOTE | 2020-12-11 13:30 | NUR ---
HEMODIALYSIS DONE, VSS, NO ADVERSE REACTIONS NOTED Addendum: 12/11/20 at 1549 by Abe Beaver RN 1.6L OUT
[2020-12-11 16:00] VITALS: BP 123/41
--- NOTE | 2020-12-11 16:00 | NUR ---
PT RESTING IN BED, NO C/O PAIN, NO RESPIRATORY DISTRESS
[2020-12-11] MEDS ORDERED: EPOETIN ALFA-EPBX 10,000 UNITS/ML VIAL SUBQ SCH (16:30)
[2020-12-11] MEDS: hydrALAZINE 25 MG TAB PO SCH ×2 (16:43→21:47)
--- NOTE | 2020-12-11 17:00 | NUR ---
PT REFUSED LINEN CHANGE X2
--- NOTE | 2020-12-11 18:50 | NUR ---
PT IN BED, NO SOB, NO C/O PAIN
--- NOTE | 2020-12-11 19:30 | NUR ---
PATIENT AOX4, VERBALIZING NEEDS TO STAFF. DISCUSSED WITH PATIENT FALL AND SAFETY INTERVENTIONS, MEDICATION REGIMEN AND PLAN OF CARE. SOB NOTED. DX: PNA, ESRD WITH HD PULMONARY EDEMA , ANEMIA. IV LINE ON THE LAC INTACT AND IN PLACE. HEAD OF BED ELEVATED AND POSITIONED FOR COMFORT. NO ACUTE DISTRESS NOTED. RESPIRATIONS REGULAR NON LABORED. PATIENT VERBALIZING NEEDS TO STAFF. TUNNELED RIJ HEMODIALYSIS CATHETER WITH DRESSING DRY AND INTACT. RIGHT FOOT 3RD, 4TH, 5TH TOE AMPUTATION NOTED. MRSA SCREENING DONE. ORIENTED TO ROOM, CALL LIGHT , STAFF. PLACED IN BED COMFORTABLY. PATIENT EDUCATED TO MEDICATION REGIMEN, FALL AND SAFETY INTERVENTIONARY MEASURES AND RN PLAN OF CARE. PATIENT COMPLIANT WITH PLAN OF CARE. WILL CONTINUE TO MONITOR. NO DISTRESS NOTED.
--- NOTE | 2020-12-11 21:00 | NUR ---
PATIENT AAOX4, VERBALIZING NEEDS TO STAFF. CC: SOB DX: PNA, ESRD WITH HD PULMONARY EDEMA , ANEMIA. IV LINE ON THE LAC INTACT AND IN PLACE. NO ACUTE DISTRESS NOTED. RESPIRATION REGULAR NON LABORED. PATIENT VERBALIZING NEEDS TO STAFF. TUNNELED RIJ HEMODIALYSIS CATHETER WITH DRESSING DRY AND INTACT. RIGHT FOOT 3RD, 4TH, 5TH TOE AMPUTATION NOTED. MRSA SCREENING DONE. ORIENTED TO ROOM, CALL LIGHT , STAFF. PLACED IN BED COMFORTABLY. PATIENT EDUCATED TO MEDICATION REGIMEN, FALL AND SAFETY INTERVENTIONARY MEASURES AND RN PLAN OF CARE. PATIENT COMPLIANT WITH PLAN OF CARE. WILL CONTINUE TO MONITOR. NO DISTRESS NOTED.
[2020-12-12] VITALS: BP 118/62
[2020-12-12 07:02] LABS: BASOPHILS # (AUTO) 0.1 K/uL (0.00-0.22); BASOPHILS % (AUTO) 1.3 % (0.0-2.0); EOSINOPHILS # (AUTO) 0.2 K/uL (0-0.4); EOSINOPHILS % (AUTO) 5.6 % (0.0-4.0); HEMATOCRIT 28.2 % (36-52); HEMOGLOBIN 9.3 g/dL (12.0-18.0); LYMPHOCYTES # (AUTO) 1.3 K/uL (2.0-11.5); LYMPHOCYTES % (AUTO) 30.6 % (20.5-51.1); MEAN CORPUSCULAR HEMOGLOBIN 29 pg (27-31); MEAN CORPUSCULAR HGB CONC 33 g/dL (33-37); MEAN CORPUSCULAR VOLUME 88.6 fL (80-94); MONOCYTES # (AUTO) 0.4 K/uL (0.8-1.0); MONOCYTES % (AUTO) 8.8 % (1.7-9.3); NEUTROPHILS # (AUTO) 2.3 K/uL (1.8-7.7); NEUTROPHILS % (AUTO) 53.7 % (42.2-75.2); PLATELET COUNT (AUTO) 140 K/uL (140-450); RED BLOOD CELL COUNT(AUTO) 3.18 MIL/uL (4.20-6.10); RED CELL DISTRIBUTION WIDTH 15.7 % (11.6-13.7); WHITE BLOOD COUNT (AUTO) 4.2 K/uL (4.8-10.8)
[2020-12-12 07:21] LABS: ALBUMIN 3.1 g/dL (3.4-5.0); ANION GAP 16.9 (8-16); CARBON DIOXIDE 23.7 mmol/L (21-32); PHOSPHORUS 6.7 mg/dL (2.5-4.9); POTASSIUM 4.6 mmol/L (3.5-5.1); TOTAL BILIRUBIN 0.4 mg/dL (0.0-1.0)
--- NOTE | 2020-12-12 07:30 | NUR ---
RECEIVED REPORT FROM PATTERNMAKER METAL BENCH NURSE FOR CONTINUITY OF CARE. AOX4, NO C/O PAIN, RESPIRATIONS EVEN AND UNLABORED ON 5L NC. PT IS ON ENHANCED PRECAUTIONS FOR PCR PENDING. IV RH 20G RUNNING NS 10CC/HR. PT HAS A RIGHT 3RD, 4TH, AND 5TH TOE AMPUTATION. WITH HD CATH RIJ. ALL SAFETY MEASURES IN PLACE, CALL LIGHT WITHIN REACH. WILL CONTINUE TO MONITOR.
[2020-12-12 07:34] LABS: CREATININE 7.2 mg/dL (0.6-1.3)
[2020-12-12 08:00] VITALS: BP 138/82
--- NOTE | 2020-12-12 08:00 | NUR ---
IV 20G ON RH OUT. WILL REINSERT IV
[2020-12-12] MEDS ORDERED: LOSA50TA66 PO (08:33)
[2020-12-12] MEDS ORDERED: HYDR-1100 PO (08:33)
[2020-12-12] MEDS ORDERED: amLODIPine 5 MG TAB PO SCH (09:00)
--- NOTE | 2020-12-12 09:20 | NUR ---
DUE MEDS GIVEN. TOLERATED WELL
[2020-12-12] MEDS: METOPROLOL 50 MG TAB PO SCH (09:53)
[2020-12-12] MEDS: ASPIRIN 81 MG TAB.CHEW PO SCH (09:53)
[2020-12-12] MEDS: LOSARTAN 25 MG TAB PO SCH (09:53)
[2020-12-12] MEDS: FUROSEMIDE 40 MG TAB PO SCH (09:53)
[2020-12-12] MEDS: hydrALAZINE 25 MG TAB PO SCH ×2 (09:53→12:41)
[2020-12-12] MEDS: TAMSULOSIN 0.4 MG CAP PO SCH (09:53)
[2020-12-12] MEDS: SEVELAMER CARBONATE 800 MG TAB PO SCH (09:54)
[2020-12-12] MEDS: AZITHROMYCIN 500 MG in DEXTROSE 5% 250 ML IV SCH (10:24)
--- NOTE | 2020-12-12 11:42 | NUR ---
PT ASLEEP IN BED. NO APPARENT DISTRESS
[2020-12-12] MEDS: NACL 0.9% 500 ML IV SCH (12:25)
--- NOTE | 2020-12-12 13:50 | NUR ---
DISCHARGE INSTRUCTIONS AND PRESCRIPTION GIVEN TO PT AND PT'S SON. ID BAND AND IV REMOVED. RIGHT UPPER CHEST TUNNEL CATH INTACT
--- NOTE | 2020-12-12 14:00 | NUR ---
DISCHARGED PT, WHEELED OUT TO FRONT LOBBY PICKED UP BY SON VIA PRIVATE VEHICLE
--- NOTE | 2020-12-14 12:36 | NUR ---
DC PLANNING [facility] CALLED [facility] AT TO SCHEDULED A FOLLOW UP APPOINTMENT FOR PATIENT AFTER HIS DC FROM [facility] ON 12/12/20. [facility] SPOKE TO JAYDE WHO PROVIDED A FOLLOW UP APPOINTMENT FOR PATIENT O 12/21/20 AT 9:00 AM. PER JAYDE THAT WAS THE SOONEST APPOINTMENT AVAILABLE FOR PATIENT THEREFORE THIS MANAGER LAND SCHEDULED APPT. ON THAT DAY. [employer] THANK JAYDE AND ENDED THE CALL. [employer] CALLED PATIENT AT PATIENT'S SON BERNARDO CAGE ANSWER THE CALLED AND DISCUSS PATIENT'S NEED FOR A FOLLOW UP APPOINTMENT. 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 [employer] PROVIDED PATIENT'S SON WITH INFORMATION OF APPOINTMENT BEEN MADE AT [address] [phone] ON Sunday12/21/20 HE THANK [employer] AND ENDED THE CALL
== END 2020-12-12 14:00 | disposition home or self-care (01) | DRG 194 ==
LOC: MED 07:03 → MTU 12:27 → UNDODISIN 12-12 14:00
PROVIDERS: ADMIT Family Medicine; ATTEND Family Medicine
PROC: 5A1D70Z Performance of Urinary Filtration, Intermittent, Less than 6 Hours Per Day (ICD-10-PCS; principal; 2020-12-08)
PROC: 5A1D70Z Performance of Urinary Filtration, Intermittent, Less than 6 Hours Per Day (ICD-10-PCS; 2020-12-09)
PROC: 5A1D70Z Performance of Urinary Filtration, Intermittent, Less than 6 Hours Per Day (ICD-10-PCS; 2020-12-10)
PROC: 0W993ZZ Drainage of Right Pleural Cavity, Percutaneous Approach (ICD-10-PCS; 2020-12-10)
DX: I13.2 Hypertensive heart and chronic kidney disease with heart failure and with stage 5 chronic kidney disease, or end stage renal disease (principal); J96.21 Acute and chronic respiratory failure with hypoxia; N17.0 Acute kidney failure with tubular necrosis; J18.9 Pneumonia, unspecified organism; N18.6 End stage renal disease; J91.8 Pleural effusion in other conditions classified elsewhere; D63.1 Anemia in chronic kidney disease; E11.22 Type 2 diabetes mellitus with diabetic chronic kidney disease; I50.33 Acute on chronic diastolic (congestive) heart failure; Z86.74 Personal history of sudden cardiac arrest; E87.5 Hyperkalemia; Z20.822 Contact with and (suspected) exposure to COVID-19; I16.1 Hypertensive emergency; Z99.2 Dependence on renal dialysis; Z87.01 Personal history of pneumonia (recurrent); Z86.16 Personal history of COVID-19; Z79.4 Long term (current) use of insulin; Z83.3 Family history of diabetes mellitus; Z79.82 Long term (current) use of aspirin; Z79.899 Other long term (current) drug therapy; Z89.421 Acquired absence of other right toe(s); Z87.891 Personal history of nicotine dependence
CPT/HCPCS: 36415; 71045; 76604; 76942; 80048; 80053; 82150; 83036; 83605; 83690; 83735; 83880; 84100; 84439; 84443; 84484; 85025; 85610; 85730; 87040; 87081; 90935; 93005; 96365; 96367; 96375; 99285; J0360; J0456; J0696; J1644; J1940; J2001; J2270; J7060; Q0092; Q5106; U0003

== ENCOUNTER 2021-01-01 22:17 | Inpatient (IN) | payer MEDICAID, SELFPAY ==
[~2021-01-01] VITALS: Ht 167.6 cm; Wt 81.6 kg
[~2021-01-01 22:17] MED LIST changes: +CEPH250C16 PO; -FURO-570 PO; +HYDR-1100 PO; +LOSA50TA66 PO; -VANC125C10 PO
[2021-01-01 22:19] VITALS: BP 174/74
--- NOTE | 2021-01-01 22:28 | NUR ---
AMBULATED TO BED UNASSISTED
--- NOTE | 2021-01-01 22:33 | NUR ---
PATIENT COAX4 AMBLATED TO ROOM 10. CC CHEST PAIN AND DECREASED SPO2. PER FAMILY PATIENT DESATS TO 60% VIA HOME PULSE OX ON EXERTION. PATIENT ALSO REPORTS LEFT SIDED CHEST PAIN ONSET OF 3 DAYS. PATIENT IS A RENAL PATIENT AND HAS DIALYSIS ACCESS TO RIGHT CHEST. LAST DIALYSIS WAS TODAY, UNKNOWN NEPHRO. DENIES ANY FURTHER COMPLAINTS. HX: ESRD, DM, HTN NKA
--- NOTE | 2021-01-01 22:50 | NUR ---
DESCRIBES PAIN BURNING TO LEFT SIDE. RATED 8/10 AT THIS TIME WITH ER MD AT BEDSIDE FOR ASSESSMENT.
[2021-01-01] MEDS ORDERED: MORPHINE SULFATE 4 MG/ML SYR IVP ONE (22:55)
[2021-01-01] MEDS ORDERED: ENOXAPARIN 80 MG/0.8 ML SYR SUBQ ONE (22:55)
[2021-01-01] MEDS ORDERED: ASPIRIN 325 MG TAB PO ONE (22:55)
[2021-01-01] MEDS ORDERED: NITROGLYCERIN 2% 1 GM PKT TP ONE (22:55)
[2021-01-01] MEDS ORDERED: ENALAPRILAT 2.5 MG/2 ML VIAL IVP ONE (22:55)
--- NOTE | 2021-01-01 23:22 | NUR ---
BERNARDO (SON) [phone] PATIENT SPEAKS ITALIAN ONLY, CONTACT SON IF ANY QUESTIONS
[2021-01-01 23:27] LABS: BASOPHILS # (AUTO) 0.1 K/uL (0.00-0.22); BASOPHILS % (AUTO) 1.3 % (0.0-2.0); EOSINOPHILS # (AUTO) 0.2 K/uL (0-0.4); EOSINOPHILS % (AUTO) 3.6 % (0.0-4.0); HEMATOCRIT 31.5 % (36-52); HEMOGLOBIN 10.3 g/dL (12.0-18.0); LYMPHOCYTES # (AUTO) 1.6 K/uL (2.0-11.5); LYMPHOCYTES % (AUTO) 26.7 % (20.5-51.1); MEAN CORPUSCULAR HEMOGLOBIN 29 pg (27-31); MEAN CORPUSCULAR HGB CONC 33 g/dL (33-37); MEAN CORPUSCULAR VOLUME 89.2 fL (80-94); MONOCYTES # (AUTO) 0.5 K/uL (0.8-1.0); MONOCYTES % (AUTO) 7.7 % (1.7-9.3); NEUTROPHILS # (AUTO) 3.6 K/uL (1.8-7.7); NEUTROPHILS % (AUTO) 60.7 % (42.2-75.2); PLATELET COUNT (AUTO) 199 K/uL (140-450); RED BLOOD CELL COUNT(AUTO) 3.53 MIL/uL (4.20-6.10); RED CELL DISTRIBUTION WIDTH 15.7 % (11.6-13.7); WHITE BLOOD COUNT (AUTO) 5.9 K/uL (4.8-10.8)
[2021-01-01 23:48] LABS: ALBUMIN 3.6 g/dL (3.4-5.0); ANION GAP 13.2 (8-16); CARBON DIOXIDE 31.7 mmol/L (21-32); POTASSIUM 4.9 mmol/L (3.5-5.1); TOTAL BILIRUBIN 0.5 mg/dL (0.0-1.0)
[2021-01-01 23:50] LABS: CHOL/HDL RATIO 2.6 (1-4.5)
[2021-01-01 23:52] LABS: CREATININE 7.4 mg/dL (0.6-1.3)
--- NOTE | 2021-01-01 23:52 | NUR ---
BUN 57 CREATININE 7.4 REPORTED FROM LAB AT THIS TIME, ER AWARE
[2021-01-02 00:01] LABS: CREATINE KINASE MB 5.8 ng/mL (0-3.6)
--- NOTE | 2021-01-02 00:47 | NUR ---
SPOKE WITH SON, PATIENT HAS NO PRIOR HISTORY OF REACTIONS TO IODINE.
[2021-01-02] MEDS ORDERED: LEVOFLOXACIN 500 MG/D5W PREMIX 100 ML IV ONE (01:50)
[2021-01-02] MEDS ORDERED: cefTRIAXone 1,000 MG VIAL ONE (03:18)
[2021-01-02] MEDS ORDERED: DEXTROSE 50% 50 ML SYR IVP PRN (07:15)
[2021-01-02] MEDS: NACL 0.9% 1,000 ML IV SCH (07:15)
[2021-01-02] MEDS ORDERED: MORPHINE SULFATE 2 MG/ML SYR IVP PRN (07:15)
[2021-01-02] MEDS ORDERED: MAGNESIUM OXIDE 400 MG TAB PO PRN (07:15)
[2021-01-02] MEDS ORDERED: DOCUSATE SODIUM 100 MG GELCAP PO PRN (07:15)
[2021-01-02] MEDS ORDERED: ONDANSETRON 4 MG/2 ML VIAL IM/IVP PRN (07:15)
[2021-01-02] MEDS ORDERED: ACETAMINOPHEN 325 MG TAB PO PRN (07:15)
[2021-01-02] MEDS ORDERED: POTASSIUM CHLORIDE 10 MEQ TABER PO PRN (07:15)
[2021-01-02] MEDS ORDERED: SODIUM PHOS / POTASSIUM PHOS 1 PKT PDR PO PRN (07:15)
--- NOTE | 2021-01-02 07:15 | NUR ---
REPORT RECEIVED FROM EMIL DIAZ FOR CONTINUITY OF CARE. PT IN BED, HAS EYES CLOSED, RESPIRATIONS EVEN AND UNLABORED, CHEST RISE IS SYMMETRICAL. ON 4 L NASAL CANNULA. O2 SATURATION 100%. IV LT AC 18G, INTACT, PATENT, GOOD BLOOD RETURN.
[2021-01-02] MEDS: BLOOD GLUCOSE MONITORING 1 DEV DEV FS SCH ×4 (07:30→20:47)
[2021-01-02] MEDS: SEVELAMER CARBONATE 800 MG TAB PO SCH ×3 (08:00→16:29)
[2021-01-02 08:02] LABS: MAGNESIUM 2.8 mg/dL (1.8-2.4); PHOSPHORUS 4.3 mg/dL (2.5-4.9)
--- NOTE | 2021-01-02 09:00 | NUR ---
Patient will be admitted to care of DR MONTERO. Admited to TELEMETRY. Will go to room 115. Belongings list completed. Report to MILTON DIAZ.
--- NOTE | 2021-01-02 09:26 | NUR ---
RECEIVED PT FROM THE ED BY MOIRA HIRSCH AMBULATORY TO BED WITH A STEADY GAIT. PT IS ON THE TELEMONITOR SHOWING SINUS RHYTHM. PT REFUSED TO REMOVE PANTS, REPORTS LOWER EXTREMITY SKIN IS INTACT, BACK AND UPPER EXTREMITY INTACT. PT HAS A RIGHT CHEST SHUNT FOR DIALYSIS ACCESS, TTS DIALYSIS. PT IS CONTINENT WITH URINAL AT BEDSIDE. PT HAS A LEFT AC 18G SALINE LOCK. PT HISTORY OBTAINED FROM SON; BERNARDO [phone]. MRSA SWAB AND VITAL SIGNS OBTAINED. ALL SAFETY MEASURES IN PLACE, CALL LIGHT WITHIN REACH. WILL CONTINUE TO MONITOR.
[2021-01-02] MEDS: TAMSULOSIN 0.4 MG CAP PO SCH (09:33)
[2021-01-02] MEDS: ATORVASTATIN 20 MG TAB PO SCH (09:33)
[2021-01-02] MEDS: ASPIRIN 81 MG TAB.CHEW PO SCH (09:33)
[2021-01-02] MEDS: METOPROLOL 50 MG TAB PO SCH ×2 (09:33→20:47)
[2021-01-02] MEDS: PANTOPRAZOLE 40 MG TABEC PO SCH (09:33)
[2021-01-02] MEDS: hydrALAZINE 25 MG TAB PO SCH ×3 (09:34→16:29)
[2021-01-02] MEDS: amLODIPine 5 MG TAB PO SCH (09:34)
--- NOTE | 2021-01-02 09:38 | NUR ---
FREDDY MEDICATION ADMINISTERED PER MD ORDER, PT TOLERATED ADMINISTRATION. IV PATENT AND INTACT, STARTED TO NS IV FLUIDS AT 10 ML. S1 & S2 HEARD, DIMINISHED LUNG SOUNDS, RIGHT CHEST DIALYSIS ACCESS. ALERT AND ORIENTED X4 UPPER SORBIAN SPEAKING. ALL SAFETY MEASURES IN PLACE, CALL LIGHT WITHIN REACH. WILL CONTINUE TO MONITOR.
--- NOTE | 2021-01-02 11:09 | NUR ---
BLOOD GLUCOSE IS 147, NO INSULIN NEEDED PER SLIDING SCALE. PT IS RESTING IN BED WITH A FLAT AFFECT. PT SPO2 MONITOR SHOWS 100%, NO SOB NOTED. ALL SAFETY MEASURES IN PLACE, CALL LIGHT WITHIN REACH. WILL CONTINUE TO MONITOR.
--- NOTE | 2021-01-02 11:15 | NUR ---
SPOKE WITH BERNARDO PTS SON, OBTAINED HX AND GAVE UP DATE. ALL QUESTIONS ANSWERED.
[2021-01-02 11:28] VITALS: BP 179/76
--- NOTE | 2021-01-02 12:28 | NUR ---
FREDDY BP MEDICATION ADMINISTERED PER MD ORDER FOR HTN. PT TOLERATED ADMINISTRATION, INFORMED PT OF MEDICATION AND HE NODDED IN UNDERSTANDING. LUNCH AT BEDSIDE, PT SITING UP WITH EVEN AND UNLABORED BREATH SOUNDS. ALL SAFETY MEASURES IN PLACE, CALL LIGHT WITHIN REACH. WILL CONTINUE TO MONITOR.
[2021-01-02 16:00] VITALS: BP 174/81
--- NOTE | 2021-01-02 16:32 | NUR ---
BLOOD GLUCOSE 76, NO ACTIONS NEEDED. ALL FREDDY MEDICATION ADMINISTERED PER MD ORDER. PT TOLERATED ADMINISTRATION. ALL SAFETY MEASURES I PLACE, CALL LIGHT WITHIN REACH. WILL CONTINUE TO MONITOR.
--- NOTE | 2021-01-02 18:42 | NUR ---
PT CALLED REPORTING BLOOD ON THE SHEETS, PT HAD PULLED IV OUT. PT SHEET AND GOWN CHANGED. NEW IV WILL BE INSERTED. ALL SAFETY MEASURES IN PLACE, CALL LIGHT WITHIN REACH. WILL CONTINUE TO MONITOR.
--- NOTE | 2021-01-02 19:21 | NUR ---
ATTEMPTED 11 TIMES FOR IV INSERTION, UNABLE TO INSERT IV. ASKED 2 OTHER RNS, UNABLE TO INSERT. CALLED [facility] FROM HD TO INFORM THEM OF THE HD SCHEDULED FOR TOMORROW. MARX STATED SHE WILL PLACE HIM ON THE SCHEDULE. PT ENDORSED TO TRUCK BODY REPAIRER NURSE FOR CONTINUITY OF CARE.
--- NOTE | 2021-01-02 19:30 | NUR ---
RECEIVED REPORT OF PT IN STABLE CONDITION.RESP.UNLABORED W/O2 VIA NC.HAS NO IV LINE.HD CATH.PATENT IN RT SIDE OF CHEST.TELE IS ON AND SHOWING SR.NO C/O PAIN AT THIS TIME.CALL LIGHT IN REACH.WILL CONTINUE MONITORING.
[2021-01-02 20:00] VITALS: BP 176/73
[2021-01-03] VITALS: BP 170/61
--- NOTE | 2021-01-03 01:04 | NUR ---
SLEEPING.HR IS SR.NO DISTRESS NOTED NOW.CALLED ER TO SOMBODY COME AND TRY FOR INSERTION OF IV .
[2021-01-03] MEDS ORDERED: cefTRIAXone 1,000 MG VIAL ONE (01:30)
--- NOTE | 2021-01-03 01:42 | NUR ---
RECHECKED SR=338/70
[2021-01-03 04:00] VITALS: BP 174/74
[2021-01-03] MEDS: BLOOD GLUCOSE MONITORING 1 DEV DEV FS SCH ×4 (05:20→21:00)
[2021-01-03] MEDS: CLONIDINE HYDROCHLORIDE 0.1 MG TAB PO PRN (05:25)
--- NOTE | 2021-01-03 06:00 | NUR ---
BP WENT UP AGAIN 174/74.CLONIDINE PO GIVEN WILL REASSESS BP.HR IS SR.BS=81 NO COVERAGE NEEDED.SLEPT WELL.WILL HAVE DIALYSIS TODAY.MARX AWARE.
--- NOTE | 2021-01-03 06:57 | NUR ---
RECHECKED GF=640/70.
[2021-01-03 06:59] LABS: BASOPHILS # (AUTO) 0.1 K/uL (0.00-0.22); EOSINOPHILS # (AUTO) 0.2 K/uL (0-0.4); EOSINOPHILS % (AUTO) 3.7 % (0.0-4.0); HEMATOCRIT 31.5 % (36-52); HEMOGLOBIN 10.4 g/dL (12.0-18.0); LYMPHOCYTES # (AUTO) 1.4 K/uL (2.0-11.5); LYMPHOCYTES % (AUTO) 24.1 % (20.5-51.1); MEAN CORPUSCULAR HEMOGLOBIN 29 pg (27-31); MEAN CORPUSCULAR HGB CONC 33 g/dL (33-37); MEAN CORPUSCULAR VOLUME 88.6 fL (80-94); MONOCYTES # (AUTO) 0.4 K/uL (0.8-1.0); MONOCYTES % (AUTO) 6.7 % (1.7-9.3); NEUTROPHILS # (AUTO) 3.8 K/uL (1.8-7.7); NEUTROPHILS % (AUTO) 64.5 % (42.2-75.2); PLATELET COUNT (AUTO) 190 K/uL (140-450); RED BLOOD CELL COUNT(AUTO) 3.56 MIL/uL (4.20-6.10); RED CELL DISTRIBUTION WIDTH 16.1 % (11.6-13.7); WHITE BLOOD COUNT (AUTO) 5.9 K/uL (4.8-10.8)
[2021-01-03] MEDS: NACL 0.9% 1,000 ML IV SCH (07:15)
[2021-01-03 07:22] LABS: ANION GAP 17.9 (8-16); CARBON DIOXIDE 26.7 mmol/L (21-32); POTASSIUM 5.6 mmol/L (3.5-5.1)
--- NOTE | 2021-01-03 07:25 | NUR ---
RECEIVED REPORT FROM KELLY MACHINE OPERATOR NURSE FOR CONTINUITY OF PATIENT CARE. PATIENT SLEEPING. BREATHING EVEN AND UNLABORED. NO ACUTE DISTRESS NOTED. PATIENT ON 4L NC. PER KELLY MACHINE OPERATOR NURSE, PATIENT HAS NO IV ACCESS. WILL ATTEMPT TO INSERT NEW IV. ALL SAFETY MEASURES IN PLACE. CALL LIGHT WITHIN REACH. WILL CONTINUE TO MONITOR.
--- NOTE | 2021-01-03 07:26 | NUR ---
REPORT GIVEN TO AM RN .CONDITION IS STABLE .
--- NOTE | 2021-01-03 07:48 | NUR ---
PATIENT HAS BEEN SCREENED AND CATEGORIZED MODERATE NUTRITION RISK. PATIENT WILL BE SEEN WITHIN 3-5 DAYS OF ADMISSION. 01/04/21 01/06/[address]
[2021-01-03 08:00] VITALS: BP 133/73
[2021-01-03 08:28] LABS: CREATININE 9.8 mg/dL (0.6-1.3)
[2021-01-03] MEDS: PANTOPRAZOLE 40 MG TABEC PO SCH (09:09)
[2021-01-03] MEDS: SEVELAMER CARBONATE 800 MG TAB PO SCH ×3 (09:09→16:49)
[2021-01-03] MEDS: METOPROLOL 50 MG TAB PO SCH ×2 (09:10→21:00)
[2021-01-03] MEDS: TAMSULOSIN 0.4 MG CAP PO SCH (09:11)
[2021-01-03] MEDS: amLODIPine 5 MG TAB PO SCH (09:11)
[2021-01-03] MEDS: ATORVASTATIN 20 MG TAB PO SCH (09:13)
[2021-01-03] MEDS: hydrALAZINE 25 MG TAB PO SCH ×3 (09:13→16:44)
[2021-01-03] MEDS: LOSARTAN 50 MG TAB PO SCH ×2 (09:14→21:00)
[2021-01-03] MEDS: ASPIRIN 81 MG TAB.CHEW PO SCH (09:14)
[2021-01-03] MEDS ORDERED: CRUSHER, PILL MC ONE (09:24)
--- NOTE | 2021-01-03 09:32 | NUR ---
PATIENT AWAKE AND ALERT. NO ACUTE DISTRESS NOTED. PATIENT ON 2L NC. PATIENT O2 IS 97%. SCHEDULED MEDICATIONS GIVEN. UNABLE TO SUCCESSFULLY START IV. WILL CONTACT ER TO GET HELP WITH STARTING IV. ALL SAFETY MEASURES IN PLACE. CALL LIGHT WITHIN REACH. WILL CONTINUE TO MONITOR.
--- NOTE | 2021-01-03 10:48 | NUR ---
DC PLANNING: HERNAN SPOKE WITH [facility] TO INFORM THEM OF THE PATIENTS ADMISSION TO THIS HOSPITAL, AND THAT HE WILL DC TODAY AFTER HE IS DIALYZED. CENTER STATED THAT THEY WILL INFORM THE TECH THAT THE PATIENT IS BEING DIALYZED TODAY. HERNAN WILL FOLLOW FOR NEEDS. Addendum: 01/03/21 at 1405 by Shaylee Valderrama CM DC PLANNING: HERNAN SPOKE WITH THE PATIENTS SON BERNARDO BY PHONE REGARDING PATIENT NEEDS AND DC PLANNING. THE PATIENT HAS BEEN LIVING WITH HIS SON THE LAST YEAR OR SO AFTER HE WAS DC'D FROM [facility] [employer]. THE PATIENT DC'D WITH A CONCENTRATOR BUT HIS PORTABLE TANK IS NOT IN USE IT IS EMPTY. PER BERNARDO, THE DME COMPANY FOR THE O2 IS IN [place] AND THEY STATE THAT THEY CAN'T DELIVER A NEW TANK BECAUSE THE [place], BERNARDO WOULD HAVE TO TAKE THE TANK TO GET REFILLED AND HE HASN'T BEEN ABLE TO. HERNAN ENDORSED TO BERNARDO THAT THE PATIENT IS BEING DIALYZED TODAY AND THAT [facility] HAD ALSO BEEN NOTIFIED OF HIS SCHEDULE. CONFIRMED THAT THE PATIENTS HD SCHEDULE IS AND SAT AT 1:00 PM AND THAT BERNARDO TRANSPORTS HIM TO THE CENTER. THE PATIENT IS ABLE TO TOLERATE BEING OFF OF O2 FOR SHORT DRIVES BUT USES HIS O2 [employer] AT HOME ESPECIALLY WITH ACTIVITY. HERNAN ENDORSED THAT THE PATIENT WILL DC AFTER HD TODAY IF THE TYPING BOOKKEEPER CLEARS HIM, BERNARDO IS IN AGREEMENT WITH THIS PLAN. HERNAN WILL FOLLOW FOR NEEDS.
[2021-01-03] MEDS ORDERED: SODIUM ZIRCONIUM CYCLOSILICATE 10 GM POWD.PACK PO SCH (11:00)
--- NOTE | 2021-01-03 11:53 | NUR ---
SKIN ASSESSMENT DONE TO PT. NO OPEN ACTIVE WOUND EXCEPT RIGHT CHEST WITH QUINTAN CATH, NO ABSCESS ON CHEST WALL.POC DISCUSSED WITH PRIMARY RN AND VERIFY NO SKIN PROBLEM ASSESSED BY PRIMARY RN.
--- NOTE | 2021-01-03 11:59 | NUR ---
PATIENT AWAKE AND ALERT. NO ACUTE DISTRESS NOTED. PATIENT ON 2L NC. PATIENT O2 IS 96%. SCHEDULED MEDICATIONS GIVEN.PATIENT DENIES PAIN AT THIS TIME. ALL SAFETY MEASURES IN PLACE. CALL LIGHT WITHIN REACH. WILL CONTINUE TO MONITOR.
[2021-01-03 12:00] VITALS: BP 169/70
--- NOTE | 2021-01-03 13:08 | NUR ---
HYDRALAZINE HELD DUE TO PATIENT GETTING HD THIS AFTERNOON
--- NOTE | 2021-01-03 13:15 | NUR ---
NOTIFIED DR. MONTERO OF NOT BEING ABLE TO OBTAIN IV ACCESS. PER DR. TALBRET NO IV NEEDED.
[2021-01-03] MEDS ORDERED: ATOR20TA40 PO (13:25)
--- NOTE | 2021-01-03 15:02 | NUR ---
PATIENT AWAKE AND ALERT. NO ACUTE DISTRESS NOTED. PATIENT ON 2L NC. PATIENT O2 IS 96%.PATIENT DENIES PAIN AT THIS TIME. ALL SAFETY MEASURES IN PLACE. CALL LIGHT WITHIN REACH. WILL CONTINUE TO MONITOR.
--- NOTE | 2021-01-03 16:44 | NUR ---
HYDRALAZINE HELD DUE TO PATIENT GETTING HD TODAY
--- NOTE | 2021-01-03 17:05 | NUR ---
PATIENT AWAKE AND ALERT. NO ACUTE DISTRESS NOTED. PATIENT ON 2L NC. PATIENT O2 IS 97%. ALL SAFETY MEASURES IN PLACE. CALL LIGHT WITHIN REACH. WILL CONTINUE TO MONITOR
--- NOTE | 2021-01-03 19:25 | NUR ---
ENDORSE TO METAL HANGING HELPER NURSE FOR CONTINUITY OF PATIENT CARE. PATIENT STABLE. ALL SAFETY MEASURES IN PLACE.
--- NOTE | 2021-01-03 19:26 | NUR ---
RECEIVED PT ENDORSEMENT FROM AM SHIFT RN. PT IS A&O X4, ON ROOM AIR, PT IS CURRENTLY RECEIVING DIALYSIS FROM DIALYSIS NURSE, SAFETY MEASURES IN PLACE, RIGHT UPPER CHEST HD CATH, WILL CONTINUE TO MONITOR.
[2021-01-03] MEDS ORDERED: LIDOCAINE 4% 40 MG/ML BTL TP SCH (20:40)
--- NOTE | 2021-01-03 22:44 | NUR ---
SAIRA FROM RADIOLOGY IS AT PTS BEDSIDE TO GIVE CHEST ULTRASOUND
[2021-01-03] MEDS: INSULIN LISPRO SLIDING SCALE 100 UNITS/ML VIAL SUBQ PRN (22:52)
--- NOTE | 2021-01-04 00:12 | NUR ---
PATIENT IS ASLEEP, NO SIGNS OF DISTRESS, PT STABLE,WILL CONTINUE TO MONITOR.
--- NOTE | 2021-01-04 02:20 | NUR ---
PATIENT IS ASLEEP, NO SIGNS OF DISTRESS, SAFETY MEASURES IN PLACE, PT STABLE, WILL CONTINUE TO MONITOR.
[2021-01-04 04:00] VITALS: BP 188/80
[2021-01-04] MEDS: CLONIDINE HYDROCHLORIDE 0.1 MG TAB PO PRN (04:54)
[2021-01-04] MEDS: BLOOD GLUCOSE MONITORING 1 DEV DEV FS SCH ×4 (06:38→21:51)
[2021-01-04] MEDS: INSULIN LISPRO SLIDING SCALE 100 UNITS/ML VIAL SUBQ PRN ×2 (06:39→21:51)
--- NOTE | 2021-01-04 07:09 | NUR ---
PASSED ON BEDSIDE ENDORSEMENT TO AM SHIFT RN. PT IS STABLE.
--- NOTE | 2021-01-04 07:10 | NUR ---
RECEIVED REPORT FROM MANAGER PRIVACY NURSE FOR CONTINUITY OF PATIENT CARE. PATIENT SLEEPING. BREATHING EVEN AND UNLABORED. NO ACUTE DISTRESS NOTED. PATIENT ON 4L NC. ALL SAFETY MEASURES IN PLACE. CALL LIGHT WITHIN REACH. WILL CONTINUE TO MONITOR.
[2021-01-04 07:12] LABS: BASOPHILS # (AUTO) 0.1 K/uL (0.00-0.22); BASOPHILS % (AUTO) 1.1 % (0.0-2.0); EOSINOPHILS # (AUTO) 0.2 K/uL (0-0.4); HEMATOCRIT 32.3 % (36-52); HEMOGLOBIN 10.5 g/dL (12.0-18.0); LYMPHOCYTES # (AUTO) 1.5 K/uL (2.0-11.5); LYMPHOCYTES % (AUTO) 24.5 % (20.5-51.1); MEAN CORPUSCULAR HEMOGLOBIN 29 pg (27-31); MEAN CORPUSCULAR HGB CONC 33 g/dL (33-37); MEAN CORPUSCULAR VOLUME 87.9 fL (80-94); MONOCYTES # (AUTO) 0.5 K/uL (0.8-1.0); MONOCYTES % (AUTO) 8.5 % (1.7-9.3); NEUTROPHILS # (AUTO) 3.8 K/uL (1.8-7.7); NEUTROPHILS % (AUTO) 61.9 % (42.2-75.2); PLATELET COUNT (AUTO) 187 K/uL (140-450); RED BLOOD CELL COUNT(AUTO) 3.68 MIL/uL (4.20-6.10); RED CELL DISTRIBUTION WIDTH 15.9 % (11.6-13.7); WHITE BLOOD COUNT (AUTO) 6.1 K/uL (4.8-10.8)
[2021-01-04 07:25] LABS: ANION GAP 15.7 (8-16); CARBON DIOXIDE 26.6 mmol/L (21-32); POTASSIUM 4.3 mmol/L (3.5-5.1)
--- NOTE | 2021-01-04 07:58 | NUR ---
ASLEEP RESTING COMFORTABLY NO APPARENT DISTRESS NOTED GOOD CHEST RISE AIRWAY PATENT SUPPLEMENTAL OXYGEN AT 4 LPM VIA NC SATURATION 98% TITRATED FIO2 TO 3LPM MOSNE/RN NOTIFIED
[2021-01-04 08:04] LABS: CREATININE 7.6 mg/dL (0.6-1.3)
[2021-01-04] MEDS: ASPIRIN 81 MG TAB.CHEW PO SCH (08:16)
[2021-01-04] MEDS: SEVELAMER CARBONATE 800 MG TAB PO SCH ×3 (08:16→17:15)
[2021-01-04] MEDS: PANTOPRAZOLE 40 MG TABEC PO SCH (08:17)
[2021-01-04] MEDS: TAMSULOSIN 0.4 MG CAP PO SCH (08:17)
[2021-01-04] MEDS: METOPROLOL 50 MG TAB PO SCH ×2 (08:17→21:33)
[2021-01-04] MEDS: LOSARTAN 50 MG TAB PO SCH ×2 (08:20→21:33)
[2021-01-04] MEDS: ATORVASTATIN 20 MG TAB PO SCH (08:21)
[2021-01-04] MEDS: hydrALAZINE 25 MG TAB PO SCH ×3 (08:22→17:00)
[2021-01-04] MEDS: amLODIPine 5 MG TAB PO SCH (08:23)
--- NOTE | 2021-01-04 08:33 | NUR ---
PATIENT AWAKE AND ALERT. NO ACUTE DISTRESS NOTED. PATIENT IS SCHEDULED FOR HD TODAY. CALLED HD NURSE TO VERIFY IF IT WAS OK TO GIVE BLOOD PRESSURE MEDICATIONS THIS MORNING. SHE SAID IT WAS FINE. ALL SCHEDULED MEDICATIONS GIVEN. CALL LIGHT WITHIN REACH. ALL SAFETY MEASURES IN PLACE. WILL CONTINUE TO MONITOR.
--- NOTE | 2021-01-04 08:37 | NUR ---
NOTIFIED DR. MONTERO ABOUT PATIENTS BP BEING 192/80, HR 70. PER ORDER, OK TO GIVE SCHEDULED BP MEDICATIONS.
--- NOTE | 2021-01-04 09:04 | NUR ---
DR. PETERS AT BEDSIDE. PER , CLEARED TO BE DC AFTER DIALYSIS TODAY.
--- NOTE | 2021-01-04 11:30 | NUR ---
PATIENT AWAKE AND ALERT. NO ACUTE DISTRESS NOTED. PATIENT ON 3L NC O2 SATING AT 97%.CALL LIGHT WITHIN REACH. ALL SAFETY MEASURES IN PLACE. WILL CONTINUE TO MONITOR.
--- NOTE | 2021-01-04 12:45 | NUR ---
PER KENDRA FROM RADIOLOGY, HEPARIN AND ASPIRIN TO BE HELD FOR US GUIDED THORACENTESIS ON 01/05/2021
--- NOTE | 2021-01-04 13:10 | NUR ---
PATIENT AWAKE AND ALERT EATING LUNCH. NO ACUTE DISTRESS NOTED PATIENTS BP IS 169/74 AND A PULSE OF 63. SCHEDULED MEDICATIONS GIVEN.
--- NOTE | 2021-01-04 13:14 | NUR ---
SUPPLEMENTAL OXYGEN AT 3 LPM VIA NC SATURATION 98% TITRATED FIO2 TO 2 LPM MONSE/RN NOTIFIED
--- NOTE | 2021-01-04 13:15 | NUR ---
PER RT PATIENT DECREASED TO 2L NC. PATIENT TOLERATING WELL. CALL LIGHT WITHIN REACH. ALL SAFETY MEASURES IN PLACE.
--- NOTE | 2021-01-04 15:05 | NUR ---
PATIENT AWAKE AND ALERT. NO ACUTE DISTRESS NOTED. PATIENT ON 2L NC. PATIENT O2 SATING AT 96%. CALL LIGHT WITHIN REACH. SAFETY ,MEASURES IN PLACE.
[2021-01-04 16:00] VITALS: BP 146/49
--- NOTE | 2021-01-04 17:00 | NUR ---
APRESOLINE 100MG NOT ADMINISTERED DUE TO PATIENT PENDING DIALYSIS.
--- NOTE | 2021-01-04 19:16 | NUR ---
ENDORSE TO LIBRARY TECHNICAL ASSISTANT NURSE FOR CONTINUITY OF PATIENT CARE. PATIENT STABLE.
--- NOTE | 2021-01-04 19:17 | NUR ---
RECEIVED PATIENT ENDORSEMENT FROM AM SHIFT RN. PT IS CURRENTLY GETTING DIALYSIS FROM DIALYSIS NURSE, ON 2L NC, A&O X4, AMBULATORY, TATIANA CATH RT UPPER CHEST, RENAL DIET, SAFETY MEASURES IN PLACE, PT STABLE. WILL CONTINUE TO MONITOR.
[2021-01-05] VITALS: BP 182/78
[2021-01-05] MEDS: BLOOD GLUCOSE MONITORING 1 DEV DEV FS SCH ×4 (07:10→21:00)
[2021-01-05] MEDS: INSULIN LISPRO SLIDING SCALE 100 UNITS/ML VIAL SUBQ PRN (07:10)
--- NOTE | 2021-01-05 07:16 | NUR ---
PASSED ON BEDSIDE REPORT TO AM SHIFT RN. PT STABLE.
[2021-01-05 07:26] LABS: BASOPHILS % (AUTO) 0.8 % (0.0-2.0); EOSINOPHILS # (AUTO) 0.2 K/uL (0-0.4); EOSINOPHILS % (AUTO) 3.6 % (0.0-4.0); HEMATOCRIT 32.2 % (36-52); HEMOGLOBIN 10.5 g/dL (12.0-18.0); LYMPHOCYTES # (AUTO) 1.5 K/uL (2.0-11.5); LYMPHOCYTES % (AUTO) 26.2 % (20.5-51.1); MEAN CORPUSCULAR HEMOGLOBIN 29 pg (27-31); MEAN CORPUSCULAR HGB CONC 33 g/dL (33-37); MONOCYTES # (AUTO) 0.5 K/uL (0.8-1.0); MONOCYTES % (AUTO) 8.1 % (1.7-9.3); NEUTROPHILS # (AUTO) 3.4 K/uL (1.8-7.7); NEUTROPHILS % (AUTO) 61.3 % (42.2-75.2); PLATELET COUNT (AUTO) 183 K/uL (140-450); RED BLOOD CELL COUNT(AUTO) 3.65 MIL/uL (4.20-6.10); WHITE BLOOD COUNT (AUTO) 5.6 K/uL (4.8-10.8)
[2021-01-05 07:35] LABS: ANION GAP 14.8 (8-16); CARBON DIOXIDE 27.3 mmol/L (21-32); POTASSIUM 4.1 mmol/L (3.5-5.1)
[2021-01-05] MEDS: ASPIRIN 81 MG TAB.CHEW PO SCH (07:35)
--- NOTE | 2021-01-05 07:55 | NUR ---
Patient awake and alert. Denies pain, blood pressure elevated and to administer medications as ordered. Safety measures in place with call light, bed lowered and condiments provided.
[2021-01-05 08:00] VITALS: BP 182/71
[2021-01-05 08:37] LABS: CREATININE 6.3 mg/dL (0.6-1.3)
[2021-01-05] MEDS: PANTOPRAZOLE 40 MG TABEC PO SCH (09:31)
[2021-01-05] MEDS: ATORVASTATIN 20 MG TAB PO SCH (09:31)
[2021-01-05] MEDS: LOSARTAN 50 MG TAB PO SCH ×2 (09:31→21:00)
[2021-01-05] MEDS: METOPROLOL 50 MG TAB PO SCH ×2 (09:32→21:00)
[2021-01-05] MEDS: hydrALAZINE 25 MG TAB PO SCH ×3 (09:32→17:31)
[2021-01-05] MEDS: amLODIPine 5 MG TAB PO SCH (09:32)
[2021-01-05] MEDS: TAMSULOSIN 0.4 MG CAP PO SCH (09:33)
[2021-01-05] MEDS: SEVELAMER CARBONATE 800 MG TAB PO SCH ×3 (09:36→17:32)
[2021-01-05 16:00] VITALS: BP 184/73
[2021-01-05 17:12] LABS: APPEARANCE,SPUN,BODY FLUID CLEAR (CLEAR); APPEARANCE,UNSPUN,BODY FLUID BLOODY (CLEAR); COLOR,BODY FLUID PINK (LT YELLOW); SPECIMENTYPE,BODY FLUID THORACENTESIS; TOTAL VOLUME,BODY FLUID 1875 mL
[2021-01-05 17:13] LABS: RBC, BODY FLUID 900 /cu. mm.; WBC, BODY FLUID 3 /cu. mm.
[2021-01-05 18:48] LABS: GLUCOSE,BODY FLUID 112 mg/dL
--- NOTE | 2021-01-05 22:52 | NUR ---
I RECEIVED PT IN BED ,IS ALERT ORIENTED X4 SPANSH SPEAKIND HE DNI PAIN , HE IS ON 02 2L NC DIMINISHED LUNG SOUDS ,SKIN IS INACT ,
[2021-01-06] MEDS: INSULIN LISPRO SLIDING SCALE 100 UNITS/ML VIAL SUBQ PRN ×2 (02:30→06:11)
[2021-01-06] MEDS: HYDROcodone/APAP 5/325 MG 1 TAB TAB PO PRN ×2 (02:55→05:15)
[2021-01-06] MEDS: BLOOD GLUCOSE MONITORING 1 DEV DEV FS SCH (06:10)
--- NOTE | 2021-01-06 06:12 | NUR ---
PT SLEPT WELL AFTER CONTROLLOLING HIS JASPER , VSS
[2021-01-06 06:49] VITALS: BP 117/70
[2021-01-06 07:13] LABS: BASOPHILS # (AUTO) 0.1 K/uL (0.00-0.22); BASOPHILS % (AUTO) 0.8 % (0.0-2.0); EOSINOPHILS # (AUTO) 0.2 K/uL (0-0.4); EOSINOPHILS % (AUTO) 3.2 % (0.0-4.0); HEMATOCRIT 32.9 % (36-52); HEMOGLOBIN 10.6 g/dL (12.0-18.0); LYMPHOCYTES # (AUTO) 1.7 K/uL (2.0-11.5); LYMPHOCYTES % (AUTO) 23.9 % (20.5-51.1); MEAN CORPUSCULAR HEMOGLOBIN 28 pg (27-31); MEAN CORPUSCULAR HGB CONC 32 g/dL (33-37); MEAN CORPUSCULAR VOLUME 87.5 fL (80-94); MONOCYTES # (AUTO) 0.6 K/uL (0.8-1.0); MONOCYTES % (AUTO) 8.3 % (1.7-9.3); NEUTROPHILS # (AUTO) 4.4 K/uL (1.8-7.7); NEUTROPHILS % (AUTO) 63.8 % (42.2-75.2); PLATELET COUNT (AUTO) 174 K/uL (140-450); RED BLOOD CELL COUNT(AUTO) 3.76 MIL/uL (4.20-6.10); RED CELL DISTRIBUTION WIDTH 15.9 % (11.6-13.7); WHITE BLOOD COUNT (AUTO) 6.9 K/uL (4.8-10.8)
[2021-01-06 07:17] LABS: ANION GAP 16.4 (8-16); CARBON DIOXIDE 25.3 mmol/L (21-32); POTASSIUM 4.7 mmol/L (3.5-5.1)
--- NOTE | 2021-01-06 07:37 | NUR ---
Patient awake, alert and oriented. Able to verbalize needs. Vitals stable, denies pain. Safety measures in place with call light within reach, bed lowered and alarm activated.
[2021-01-06 07:48] VITALS: BP 168/73
[2021-01-06] MEDS: SEVELAMER CARBONATE 800 MG TAB PO SCH ×2 (08:00→11:56)
[2021-01-06] MEDS: ATORVASTATIN 20 MG TAB PO SCH (09:00)
[2021-01-06] MEDS: hydrALAZINE 25 MG TAB PO SCH (09:00)
[2021-01-06] MEDS: amLODIPine 5 MG TAB PO SCH (09:00)
[2021-01-06] MEDS: PANTOPRAZOLE 40 MG TABEC PO SCH (09:00)
[2021-01-06] MEDS: ASPIRIN 81 MG TAB.CHEW PO SCH (09:00)
[2021-01-06] MEDS: TAMSULOSIN 0.4 MG CAP PO SCH (09:00)
[2021-01-06] MEDS: METOPROLOL 50 MG TAB PO SCH (09:00)
[2021-01-06] MEDS: LOSARTAN 50 MG TAB PO SCH (09:00)
[2021-01-06 10:03] LABS: CREATININE 8.9 mg/dL (0.6-1.3)
[2021-01-06 12:23] VITALS: BP 143/65
--- NOTE | 2021-01-06 13:01 | NUR ---
Patient discharged and was given information on medications, disease process and all questions regarding discharge answered. Patient taken off the unit in wheeled chair by practical nursing faculty.
--- NOTE | 2021-01-06 14:55 | NUR ---
DC PLANNING APPLE CALLED [facility] AT TO SCHEDULED A FOLLOW UP APPOINTMENT FOR PATIENT AFTER HIS DC FROM [facility] ON 01/06/2021. APPLE SPOKE TO DAVIDE WHO PROVIDED A FOLLOW UP APPOINTMENT FOR PATIENT ON 01/11/2021 AT 14:45PM. PER JAYDE THAT WAS THE SOONEST APPOINTMENT AVAILABLE FOR PATIENT THEREFORE THIS [employer] MANAGER SCHEDULED APPT. ON THAT DAY. APPLE THANK JAYDE AND ENDED THE CALL. APPLE CALLED PATIENT AT PATIENT'S SON BERNARDO CAGE ANSWER THE CALLED AND DISCUSS PATIENT'S NEED FOR A FOLLOW UP APPOINTMENT. 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 APPLE PROVIDED PATIENT'S SON WITH INFORMATION OF APPOINTMENT BEEN MADE AT [address] [address] ON Sunday01/11/2021 PAT'S SON THANK APPLE AND ENDED THE CALL
[2021-01-06] MEDS ORDERED: METO100T22 PO (15:23)
== END 2021-01-06 12:51 | disposition home or self-care (01) | DRG 203 ==
LOC: MED 22:17 → MTU 01-02 07:19
PROVIDERS: ADMIT Hospitalist; ATTEND Hospitalist
PROC: 5A1D70Z Performance of Urinary Filtration, Intermittent, Less than 6 Hours Per Day (ICD-10-PCS; 2021-01-02)
PROC: 5A1D80Z Performance of Urinary Filtration, Prolonged Intermittent, 6-18 hours Per Day (ICD-10-PCS; 2021-01-03)
PROC: 0W993ZZ Drainage of Right Pleural Cavity, Percutaneous Approach (ICD-10-PCS; principal; 2021-01-05)
PROC: 5A1D70Z Performance of Urinary Filtration, Intermittent, Less than 6 Hours Per Day (ICD-10-PCS; 2021-01-06)
DX: M94.0 Chondrocostal junction syndrome [Tietze] (principal); N17.0 Acute kidney failure with tubular necrosis; I13.2 Hypertensive heart and chronic kidney disease with heart failure and with stage 5 chronic kidney disease, or end stage renal disease; E11.610 Type 2 diabetes mellitus with diabetic neuropathic arthropathy; N18.6 End stage renal disease; D63.8 Anemia in other chronic diseases classified elsewhere; E11.21 Type 2 diabetes mellitus with diabetic nephropathy; K80.20 Calculus of gallbladder without cholecystitis without obstruction; E11.51 Type 2 diabetes mellitus with diabetic peripheral angiopathy without gangrene; E21.3 Hyperparathyroidism, unspecified; Z20.822 Contact with and (suspected) exposure to COVID-19; I25.10 Atherosclerotic heart disease of native coronary artery without angina pectoris; E78.5 Hyperlipidemia, unspecified; I50.30 Unspecified diastolic (congestive) heart failure; E11.22 Type 2 diabetes mellitus with diabetic chronic kidney disease; Z99.2 Dependence on renal dialysis; Z79.82 Long term (current) use of aspirin; Z79.899 Other long term (current) drug therapy; Z79.2 Long term (current) use of antibiotics; Z79.4 Long term (current) use of insulin
CPT/HCPCS: 36415; 71045; 71275; 76604; 76942; 80048; 80053; 82150; 82550; 82553; 82945; 82948; 83605; 83615; 83735; 83880; 84100; 84155; 84157; 84484; 85025; 85379; 85610; 85730; 87040; 87070; 87075; 87081; 87205; 89051; 93005; 93308; 96365; 96372; 96375; 99291; J0696; J1644; J1650; J1956; J2001; J2270; J3490; Q0092; Q9967

== ENCOUNTER 2021-01-22 21:24 | Inpatient (IN) | payer MEDICAID, SELFPAY ==
[~2021-01-22] VITALS: Ht 167.6 cm; Wt 81.6 kg
[~2021-01-22 21:24] MED LIST changes: +ATOR20TA40 PO; -METO-251 PO; +METO100T22 PO
[2021-01-22 21:26] VITALS: BP 183/84
[2021-01-22 22:02] LABS: BASOPHILS % (AUTO) 0.9 % (0.0-2.0); EOSINOPHILS # (AUTO) 0.2 K/uL (0-0.4); EOSINOPHILS % (AUTO) 3.8 % (0.0-4.0); HEMATOCRIT 32.7 % (36-52); LYMPHOCYTES # (AUTO) 1.5 K/uL (2.0-11.5); LYMPHOCYTES % (AUTO) 31.5 % (20.5-51.1); MEAN CORPUSCULAR HEMOGLOBIN 29 pg (27-31); MEAN CORPUSCULAR HGB CONC 34 g/dL (33-37); MEAN CORPUSCULAR VOLUME 84.9 fL (80-94); MONOCYTES # (AUTO) 0.4 K/uL (0.8-1.0); MONOCYTES % (AUTO) 9.3 % (1.7-9.3); NEUTROPHILS # (AUTO) 2.6 K/uL (1.8-7.7); NEUTROPHILS % (AUTO) 54.5 % (42.2-75.2); PLATELET COUNT (AUTO) 147 K/uL (140-450); RED BLOOD CELL COUNT(AUTO) 3.85 MIL/uL (4.20-6.10); RED CELL DISTRIBUTION WIDTH 14.5 % (11.6-13.7); WHITE BLOOD COUNT (AUTO) 4.7 K/uL (4.8-10.8)
[2021-01-22 22:23] LABS: ALBUMIN 3.6 g/dL (3.4-5.0); CARBON DIOXIDE 30.3 mmol/L (21-32); POTASSIUM 4.3 mmol/L (3.5-5.1); TOTAL BILIRUBIN 0.9 mg/dL (0.0-1.0)
[2021-01-22 22:32] LABS: CREATININE 6.4 mg/dL (0.6-1.3)
[2021-01-22] MEDS ORDERED: CLONIDINE HYDROCHLORIDE 0.1 MG TAB PO ONE (22:40)
[2021-01-22] MEDS ORDERED: NITROGLYCERIN 0.4 MG TAB SL ONE ×2 (23:07→23:10)
[2021-01-22] MEDS ORDERED: ASPIRIN 325 MG TAB PO ONE (23:20)
[2021-01-22] MEDS ORDERED: INSULIN LISPRO SLIDING SCALE 100 UNITS/ML VIAL SUBQ PRN ×2 (23:30→23:45)
[2021-01-22] MEDS ORDERED: hydrALAZINE 20 MG/ML VIAL IM ONE ×2 (23:30)
[2021-01-23] MEDS ORDERED: CLONIDINE HYDROCHLORIDE 0.1 MG TAB PO SCH (01:10)
[2021-01-23] MEDS ORDERED: hydrALAZINE 25 MG TAB PO SCH (01:10)
[2021-01-23] MEDS ORDERED: hydrALAZINE 20 MG/ML VIAL IVP PRN ×2 (01:50)
[2021-01-23] MEDS ORDERED: cefTRIAXone 1,000 MG VIAL ONE (04:33)
[2021-01-23] MEDS ORDERED: AZITHROMYCIN 500 MG INJ VIAL IV ONE (05:06)
[2021-01-23] MEDS: AZITHROMYCIN 500 MG in DEXTROSE 5% 250 ML IV SCH (05:19)
[2021-01-23] MEDS ORDERED: ACETAMINOPHEN 325 MG TAB PO PRN (07:45)
[2021-01-23] MEDS ORDERED: HYDROcodone/APAP 7.5/325 MG 1 TAB PO PRN (07:45)
[2021-01-23] MEDS ORDERED: POTASSIUM CHLORIDE 10 MEQ TABER PO PRN (07:45)
[2021-01-23] MEDS ORDERED: DOCUSATE SODIUM 100 MG GELCAP PO PRN (07:45)
[2021-01-23] MEDS ORDERED: ONDANSETRON 4 MG/2 ML VIAL IM/IVP PRN (07:45)
[2021-01-23] MEDS ORDERED: ZOLPIDEM 5 MG TAB PO PRN (07:45)
[2021-01-23] MEDS ORDERED: guaiFENesin DM 200/20 MG-10 ML 10 ML UDC PO PRN (07:45)
[2021-01-23] MEDS ORDERED: DEXTROSE 50% 50 ML SYR IVP PRN (08:20)
[2021-01-23] MEDS: NACL 0.9% 1,000 ML IV SCH (08:23)
[2021-01-23] MEDS ORDERED: CLONIDINE HYDROCHLORIDE 0.1 MG TAB PO ONE ×3 (09:00)
[2021-01-23] MEDS ORDERED: NON-FORMULARY ITEM (Hydralazine HCl (Hydralazine Hcl) 50 MG) PO SCH (09:00)
[2021-01-23] MEDS ORDERED: PANTOPRAZOLE 40 MG TABEC PO ONE (09:32)
[2021-01-23] MEDS: hydrALAZINE 25 MG TAB PO SCH ×3 (09:40→17:38)
[2021-01-23] MEDS: CLONIDINE HYDROCHLORIDE 0.1 MG TAB PO SCH (09:40)
[2021-01-23] MEDS: LOSARTAN 50 MG TAB PO SCH ×2 (09:40→20:47)
[2021-01-23] MEDS: PANTOPRAZOLE 40 MG TABEC PO SCH (09:41)
[2021-01-23] MEDS: TAMSULOSIN 0.4 MG CAP PO SCH (09:41)
[2021-01-23] MEDS: ATORVASTATIN 20 MG TAB PO SCH (09:41)
[2021-01-23] MEDS: METOPROLOL 50 MG TAB PO SCH ×2 (09:41→20:48)
[2021-01-23] MEDS: amLODIPine 5 MG TAB PO SCH (09:41)
[2021-01-23 11:02] LABS: RSV NEGATIVE (NEGATIVE)
[2021-01-23 11:22] LABS: CHOL/HDL RATIO 1.4 (1-4.5); FREE T4 (FREE THYROXINE) 0.98 ng/dL (0.76-1.46); PHOSPHORUS 5.7 mg/dL (2.5-4.9); THYROID STIMULATING HORMONE 1.51 uIU/mL (0.34-3.74)
[2021-01-23 12:17] LABS: PROTHROMBIN TIME 10.2 secs (10.8-13.4)
[2021-01-23] MEDS: BLOOD GLUCOSE MONITORING 1 DEV DEV FS SCH ×3 (12:49→20:49)
[2021-01-23] MEDS: INSULIN LANTUS 100 UNITS/ML 10 ML VIAL SUBQ SCH (20:55)
[2021-01-23] MEDS ORDERED: NON-FORMULARY ITEM (Insulin Glargine,Hum.rec.anlog (Lantus Solostar) 10 UNIT) SUBQ SCH (21:00)
[2021-01-24] VITALS: BP 145/70
[2021-01-24] MEDS ORDERED: AZITHROMYCIN 500 MG INJ VIAL IV ONE (03:53)
[2021-01-24] MEDS ORDERED: ceFAZolin 1,000 MG VIAL ONE (03:53)
[2021-01-24 04:00] VITALS: BP 168/67
[2021-01-24] MEDS: AZITHROMYCIN 500 MG in DEXTROSE 5% 250 ML IV SCH (04:52)
[2021-01-24 06:30] LABS: BASOPHILS % (AUTO) 0.7 % (0.0-2.0); EOSINOPHILS # (AUTO) 0.3 K/uL (0-0.4); EOSINOPHILS % (AUTO) 5.2 % (0.0-4.0); HEMATOCRIT 32.1 % (36-52); HEMOGLOBIN 10.6 g/dL (12.0-18.0); LYMPHOCYTES # (AUTO) 1.4 K/uL (2.0-11.5); LYMPHOCYTES % (AUTO) 21.4 % (20.5-51.1); MEAN CORPUSCULAR HEMOGLOBIN 28 pg (27-31); MEAN CORPUSCULAR HGB CONC 33 g/dL (33-37); MEAN CORPUSCULAR VOLUME 85.9 fL (80-94); MONOCYTES # (AUTO) 0.5 K/uL (0.8-1.0); MONOCYTES % (AUTO) 8.1 % (1.7-9.3); NEUTROPHILS # (AUTO) 4.2 K/uL (1.8-7.7); NEUTROPHILS % (AUTO) 64.6 % (42.2-75.2); PLATELET COUNT (AUTO) 149 K/uL (140-450); RED BLOOD CELL COUNT(AUTO) 3.74 MIL/uL (4.20-6.10); RED CELL DISTRIBUTION WIDTH 14.4 % (11.6-13.7); WHITE BLOOD COUNT (AUTO) 6.5 K/uL (4.8-10.8)
[2021-01-24 06:55] LABS: CARBON DIOXIDE 25.4 mmol/L (21-32); POTASSIUM 5.4 mmol/L (3.5-5.1)
[2021-01-24] MEDS: BLOOD GLUCOSE MONITORING 1 DEV DEV FS SCH ×4 (06:59→21:11)
[2021-01-24 08:00] VITALS: BP 117/67
[2021-01-24 08:07] LABS: T4 (THYROXINE) 6.6 ug/dL (4.5-12.0)
[2021-01-24] MEDS: PANTOPRAZOLE 40 MG TABEC PO SCH (08:21)
[2021-01-24] MEDS: TAMSULOSIN 0.4 MG CAP PO SCH (08:22)
[2021-01-24] MEDS: hydrALAZINE 25 MG TAB PO SCH ×3 (08:22→18:24)
[2021-01-24] MEDS: amLODIPine 5 MG TAB PO SCH (08:22)
[2021-01-24] MEDS: ATORVASTATIN 20 MG TAB PO SCH (08:23)
[2021-01-24] MEDS: LOSARTAN 50 MG TAB PO SCH ×2 (08:24→21:12)
[2021-01-24] MEDS: CLONIDINE HYDROCHLORIDE 0.1 MG TAB PO SCH (08:24)
[2021-01-24] MEDS: METOPROLOL 50 MG TAB PO SCH ×2 (08:25→21:00)
[2021-01-24] MEDS: ASPIRIN 81 MG TAB.CHEW PO SCH (08:25)
[2021-01-24] MEDS: NACL 0.9% 1,000 ML IV SCH (08:29)
[2021-01-24 12:00] VITALS: BP 154/64
[2021-01-24 18:00] VITALS: BP 162/67
[2021-01-24 20:00] VITALS: BP 133/64
[2021-01-24] MEDS: INSULIN LANTUS 100 UNITS/ML 10 ML VIAL SUBQ SCH (21:22)
[2021-01-25] VITALS: BP 130/56
[2021-01-25 04:00] VITALS: BP 124/60
[2021-01-25] MEDS: AZITHROMYCIN 500 MG in DEXTROSE 5% 250 ML IV SCH (04:25)
[2021-01-25 06:26] LABS: BASOPHILS % (AUTO) 0.8 % (0.0-2.0); EOSINOPHILS # (AUTO) 0.2 K/uL (0-0.4); EOSINOPHILS % (AUTO) 4.2 % (0.0-4.0); HEMATOCRIT 31.6 % (36-52); HEMOGLOBIN 10.5 g/dL (12.0-18.0); LYMPHOCYTES # (AUTO) 1.8 K/uL (2.0-11.5); LYMPHOCYTES % (AUTO) 33.7 % (20.5-51.1); MEAN CORPUSCULAR HEMOGLOBIN 28 pg (27-31); MEAN CORPUSCULAR HGB CONC 33 g/dL (33-37); MEAN CORPUSCULAR VOLUME 85.7 fL (80-94); MONOCYTES # (AUTO) 0.4 K/uL (0.8-1.0); MONOCYTES % (AUTO) 8.1 % (1.7-9.3); NEUTROPHILS # (AUTO) 2.9 K/uL (1.8-7.7); NEUTROPHILS % (AUTO) 53.2 % (42.2-75.2); PLATELET COUNT (AUTO) 151 K/uL (140-450); RED BLOOD CELL COUNT(AUTO) 3.68 MIL/uL (4.20-6.10); RED CELL DISTRIBUTION WIDTH 14.3 % (11.6-13.7); WHITE BLOOD COUNT (AUTO) 5.4 K/uL (4.8-10.8)
[2021-01-25 06:33] LABS: ANION GAP 14.8 (8-16); CARBON DIOXIDE 28.1 mmol/L (21-32); POTASSIUM 4.9 mmol/L (3.5-5.1)
[2021-01-25 06:34] LABS: CREATININE 7.5 mg/dL (0.6-1.3)
[2021-01-25] MEDS: BLOOD GLUCOSE MONITORING 1 DEV DEV FS SCH ×2 (06:42→12:27)
[2021-01-25] MEDS: NACL 0.9% 1,000 ML IV SCH (07:45)
[2021-01-25 08:00] VITALS: BP 173/50
[2021-01-25 08:35] VITALS: BP 173/50
[2021-01-25] MEDS: CLONIDINE HYDROCHLORIDE 0.1 MG TAB PO SCH (08:35)
[2021-01-25] MEDS: hydrALAZINE 25 MG TAB PO SCH ×2 (08:35→12:27)
[2021-01-25] MEDS: amLODIPine 5 MG TAB PO SCH (08:36)
[2021-01-25] MEDS: METOPROLOL 50 MG TAB PO SCH (08:36)
[2021-01-25] MEDS: LOSARTAN 50 MG TAB PO SCH (08:36)
[2021-01-25] MEDS: PANTOPRAZOLE 40 MG TABEC PO SCH (08:40)
[2021-01-25] MEDS: ATORVASTATIN 20 MG TAB PO SCH (08:41)
[2021-01-25] MEDS: ASPIRIN 81 MG TAB.CHEW PO SCH (08:41)
[2021-01-25] MEDS: TAMSULOSIN 0.4 MG CAP PO SCH (08:42)
[2021-01-25] MEDS ORDERED: HYDR-4420 PO (09:14)
[2021-01-25] MEDS ORDERED: CLON0.1T16 PO (09:14)
[2021-01-25] MEDS ORDERED: AZIT250T11 PO (09:14)
== END 2021-01-25 15:50 | disposition home or self-care (01) | DRG 194 ==
LOC: MED 21:24 → MTU 23:35
PROVIDERS: ADMIT Hospitalist; ATTEND Hospitalist
PROC: 5A1D70Z Performance of Urinary Filtration, Intermittent, Less than 6 Hours Per Day (ICD-10-PCS; principal; 2021-01-23)
PROC: 5A1D80Z Performance of Urinary Filtration, Prolonged Intermittent, 6-18 hours Per Day (ICD-10-PCS; 2021-01-24)
DX: I13.2 Hypertensive heart and chronic kidney disease with heart failure and with stage 5 chronic kidney disease, or end stage renal disease (principal); J18.9 Pneumonia, unspecified organism; E11.610 Type 2 diabetes mellitus with diabetic neuropathic arthropathy; N18.6 End stage renal disease; I24.9 Acute ischemic heart disease, unspecified; D63.8 Anemia in other chronic diseases classified elsewhere; I50.43 Acute on chronic combined systolic (congestive) and diastolic (congestive) heart failure; E11.21 Type 2 diabetes mellitus with diabetic nephropathy; E78.5 Hyperlipidemia, unspecified; I25.10 Atherosclerotic heart disease of native coronary artery without angina pectoris; Z20.822 Contact with and (suspected) exposure to COVID-19; E11.22 Type 2 diabetes mellitus with diabetic chronic kidney disease; K80.20 Calculus of gallbladder without cholecystitis without obstruction; E21.3 Hyperparathyroidism, unspecified; E11.51 Type 2 diabetes mellitus with diabetic peripheral angiopathy without gangrene; E87.5 Hyperkalemia
CPT/HCPCS: 36415; 71045; 78582; 80048; 80053; 82150; 82948; 83036; 83605; 83690; 83735; 83880; 84100; 84436; 84439; 84443; 84479; 84484; 85025; 85610; 85730; 87040; 87081; 87420; 87804; 93005; 96365; 96367; 96372; 96375; 99285; J0360; J0456; J0690; J0696; J1644; J1815; J7060; Q0092; U0003

== ENCOUNTER 2021-10-05 19:20 | Emergency (ER) | payer MEDICAID ==
[~2021-10-05] VITALS: Ht 167.6 cm; Wt 72.6 kg
[~2021-10-05 19:20] MED LIST changes: +AZIT250T11 PO; -CEPH250C16 PO; +CLON0.1T16 PO; +HYDR-4420 PO
[2021-10-05 19:43] VITALS: BP 217/83
--- NOTE | 2021-10-05 19:52 | NUR ---
TO BED 12 FOLLOWING TRIADE
--- NOTE | 2021-10-05 20:45 | NUR ---
60 Y.O. M C/O TOOTH PAIN X A COUPLE OF DAYS. PT WAS IN DIALYSIS TODAY AND COULDN'T FINISH DUE TO PAIN. LEFT SIDE FACIAL SWELLING NOTED. 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 01/02 PAIN. PT SAYS DOES NOT HAVE A DENTIST. DENIES N/V/D, SOB, AND CHEST PAIN. A&OX4, SKIN INTACT, STEADY GAIT AND VITALS WNL PMH :ESRD, DM, HTN
[2021-10-05] MEDS ORDERED: KETOROLAC 60 MG/2 ML VIAL IM ONE (20:50)
[2021-10-05] MEDS ORDERED: ACET-8386 PO (21:29)
[2021-10-05] MEDS ORDERED: IBUP-2213 PO (21:29)
[2021-10-05] MEDS ORDERED: PENI500T20 PO (21:29)
[2021-10-05 22:04] VITALS: BP 217/83
--- NOTE | 2021-10-05 22:05 | NUR ---
Patient discharged with v/s stable. Written and verbal after care instructions given and explained. Patient alert, oriented and verbalized understanding of instructions. Ambulatory with steady gait. All questions addressed prior to discharge. ID band removed. Patient advised to follow up with PMD. Rx of IBUPROFEN, PENICILLIN AND HYDROCODONE-ACETAMINOPHEN 5-325 given. Patient educated on indication of medication including possible reaction and side effects. Opportunity to ask questions provided and answered.
== END 2021-10-05 22:05 | disposition home or self-care (01) ==
LOC: MED 19:20
DX: K04.7 Periapical abscess without sinus (principal); I10 Essential (primary) hypertension; E11.9 Type 2 diabetes mellitus without complications; N18.9 Chronic kidney disease, unspecified; Z79.4 Long term (current) use of insulin; Z79.899 Other long term (current) drug therapy
CPT/HCPCS: 96372; 99283; J1885